=== PATIENT | female | born 1950 | race Caucasian/White ===

== ENCOUNTER 2023-08-27 10:02 | Outpatient (AMB) | payer MEDICARE, MEDICAID, SELFPAY ==
[2023-08-27 10:15] VITALS: PULSE 90; O2SAT 99; BMI 45.2
--- NOTE | 2023-08-27 10:15 | MHC.OFFVIS ---
Vital Signs 08/27/23 10:15 Height 5 ft Weight 231 lb 7.766 oz BMI 45.2 Pulse 90 Pulse Source Pulse Oximeter Pulse Oximetry (%) 99 Oxygen Delivery Method Room Air Intake Visit Reasons: asthma Em Physician Required: No Allergies procaine [From Novocain] Allergy (Severe, Verified 08/27/23 10:22) Chest Pain candesartan [From Atacand] Adverse Reaction (Severe, Verified 08/27/23 10:22) Rash chlorthalidone Adverse Reaction (Severe, Verified 08/27/23 10:22) Rash cimetidine Adverse Reaction (Severe, Verified 08/27/23 10:22) Rash cyclobenzaprine [From Flexeril] Adverse Reaction (Severe, Verified 08/27/23 10:22) Chest Pain fentanyl Adverse Reaction (Severe, Verified 08/27/23 10:22) Chest Pain ibuprofen [From Motrin] Adverse Reaction (Severe, Verified 08/27/23 10:22) Rash meperidine [From Demerol] Adverse Reaction (Severe, Verified 08/27/23 10:22) Rash montelukast [From Singulair] Adverse Reaction (Severe, Verified 08/27/23 10:22) Rash nitrofurantoin [From Macrobid] Adverse Reaction (Severe, Verified 08/27/23 10:22) Rash oxycodone Adverse Reaction (Severe, Verified 08/27/23 10:22) Chest Pain Penicillins Adverse Reaction (Severe, Verified 08/27/23 10:22) Rash sulfa drugs Adverse Reaction (Severe, Uncoded 08/27/23 10:22) Rash HPI Comments Details: The patient is here for pulmonary evaluation. 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 The cough is moderate severity not improving. She went through few courses of medications with slow improvement of the cough and now back to her baseline. During the process the patient did have a chest x-ray and subsequently a CT scan of the chest which was done at [facility]. I did personally review the CT scan done early 07/09/2023. The patient did have some areas of airspace disease in the left base which is very suspicious for infectious process. She did have a little bit of bronchiolitis treating budding that area as well that is very typical of a postviral bacterial infection. Patient also had evidence of peribronchial cuffing from bronchitis. And also had multiple pulmonary nodules. The largest nodule measured between 5-6 mm in size and was subsolid nature. She had other solid nodules and other ground-glass nodules. In view of all the changes on her CT scan she should have a CT scan repeated in 6 months from her last 1. Will plan to do it at [facility] as the patient's preference. Will follow up at that time. In the meantime since she her breathing is back to her baseline she continued. She did have her IVIG infuse because of the hypogammaglobulinemia. 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 She did have an allergic reaction some type. She will call the immunology Office for premedications prior to the next dose. The patient will continue to follow closely with immunology. And will follow-up sometime in December after her repeat CT scan. If she has any issues prior to that she will call for an earlier assessment. [facility] Medical History (Updated 08/27/23 @ 21:03 by Naman Stevens MD) Pulmonary nodules Hiatal hernia Hypogammaglobulinemia Asthma Social History (Updated 08/27/23 @ 10:27 by MIRA Nicholas) Patient Tobacco Use Status: Never used Tobacco Review of Systems Const Denies fever(s) ENT Reports nasal congestion and Reports nasal discharge Card Denies chest pain Resp Reports cough and Reports wheezing GI Reports dyspepsia and Reports heartburn Musc Reports no additional complaints Skin/Breast Denies rash Aller/Immun Reports wheezing Physical Exam Vital Signs: Last Vital Signs Pulse 90 08/27/23 10:15 Pulse Ox 99 08/27/23 10:15 Oxygen Delivery Method Room Air 08/27/23 10:15 BMI result Body Mass Index 45.2 Const General: comfortable HEENT Head: Yes normocephalic Neck Neck: Yes supple Chest Chest palpation & inspection: normal inspection of the chest Resp Effort & Inspection: normal respiratory effort Auscultation: clear to auscultation bilaterally Cardio Heart sounds: S1 normal heart sound present and S2 normal heart sound present GI Palpation (GI): Soft to palpation Skin General skin exam: no rashes or lesions noted Extrem General: Yes no clubbing, cyanosis or edema Assessment & Plan Assessment & Plan (1) Asthma: Code(s): J45.909 - Unspecified asthma, uncomplicated Category: Medical Qualifiers: Asthma severity: moderate Asthma persistence: persistent Asthma complication type: uncomplicated Qualified Code(s): J45.40 - Moderate persistent asthma, uncomplicated (2) Hypogammaglobulinemia: Code(s): D80.1 - Nonfamilial hypogammaglobulinemia Category: Medical (3) Hiatal hernia: Code(s): K44.9 - Diaphragmatic hernia without obstruction or gangrene Category: Medical (4) Pulmonary nodules: Code(s): R91.8 - Other nonspecific abnormal finding of lung field Category: Medical Plan CT chest at [facility] 12/2023 continue Airduo JESSY as needed IVIG reflux diet f/u 12/[address]: [address] chest wo IV con 12/24/23 R91.1 - Solitary pulmonary nodule Coding Level of Care Code New Pt Level 4 (77548) Diagnoses Moderate persistent asthma without complication J45.40 Asthma severity: moderate Asthma persistence: persistent Asthma complication type: uncomplicated Hypogammaglobulinemia D80.1 Hiatal hernia K44.9 Pulmonary nodules R91.8 Time Spent (min) 40
== END 2023-08-27 10:52 | disposition home or self-care (01) ==
PROVIDERS: PCP Internal Medicine; Visit Provider Hospitalist
DX: J45.40 Moderate persistent asthma, uncomplicated (principal); D80.1 Nonfamilial hypogammaglobulinemia; K44.9 Diaphragmatic hernia without obstruction or gangrene; R91.8 Other nonspecific abnormal finding of lung field
CPT/HCPCS: 99204

== ENCOUNTER → 2023-08-27 10:02 | Outpatient (BNVA) | payer MEDICARE, SELFPAY | PROVIDERS: PCP Internal Medicine; Visit Provider Hospitalist | DX: J45.40 Moderate persistent asthma, uncomplicated (principal); D80.1 Nonfamilial hypogammaglobulinemia; K44.9 Diaphragmatic hernia without obstruction or gangrene; R91.8 Other nonspecific abnormal finding of lung field | CPT/HCPCS: 99202 ==

== ENCOUNTER 2024-01-14 10:01 | Outpatient (AMB) | payer MEDICARE, SELFPAY ==
[2024-01-14 10:16] VITALS: BP 124/64; PULSE 85; O2SAT 97
--- NOTE | 2024-01-14 10:16 | MHC.OFFVIS ---
Vital Signs 01/14/24 10:16 Weight 222 lb 10.67 oz BP 124/64 Blood Pressure Location Rt brachial Position Sitting Pulse 85 Pulse Source Pulse Oximeter Pulse Oximetry (%) 97 Oxygen Delivery Method Room Air Intake Visit Reasons: Asthma Allergies procaine [From Novocain] Allergy (Severe, Verified 01/14/24 10:21) Chest Pain candesartan [From Atacand] Adverse Reaction (Severe, Verified 01/14/24 10:21) Rash chlorthalidone Adverse Reaction (Severe, Verified 01/14/24 10:21) Rash cimetidine Adverse Reaction (Severe, Verified 01/14/24 10:21) Rash cyclobenzaprine [From Flexeril] Adverse Reaction (Severe, Verified 01/14/24 10:21) Chest Pain fentanyl Adverse Reaction (Severe, Verified 01/14/24 10:21) Chest Pain ibuprofen [From Motrin] Adverse Reaction (Severe, Verified 01/14/24 10:21) Rash meperidine [From Demerol] Adverse Reaction (Severe, Verified 01/14/24 10:21) Rash montelukast [From Singulair] Adverse Reaction (Severe, Verified 01/14/24 10:21) Rash nitrofurantoin [From Macrobid] Adverse Reaction (Severe, Verified 01/14/24 10:21) Rash oxycodone Adverse Reaction (Severe, Verified 01/14/24 10:21) Chest Pain Penicillins Adverse Reaction (Severe, Verified 01/14/24 10:21) Rash sulfa drugs Adverse Reaction (Severe, Uncoded 01/14/24 10:21) Rash Medication List - Last Reconciled 01/14/24 by Marli De Leon LPN albuterol sulfate 90 mcg/actuation 2 puffs inhalation Q6H PRN allopurinol 100 mg PO DAILY cyanocobalamin (vitamin B-12) 1,000 mcg PO DAILY denosumab (Prolia) 60 mg subcut [id number] esomeprazole magnesium (Nexium) 20 mg PO DAILY fluticasone propion-salmeterol 232-14 mcg/actuation (AirDuo RespiClick) 1 inh inhalation BID folic acid 1 mg PO DAILY furosemide 20 mg PO BID lisinopril 10 mg PO DAILY simvastatin 20 mg PO BEDTIME sodium bicarbonate 650 mg PO BID HPI Comments Details: The patient is a 73 year woman with known history of allergy and asthma in addition to hypogammaglobulinemia who apparently developed a viral syndrome about 3-4 months ago and started developing worsening cough. The cough is moderate severity not improving. She went through few courses of medications with slow improvement of the cough and now back to her baseline. During the process the patient did have a chest x-ray and subsequently a CT scan of the chest which was done at [facility]. I did personally review the CT scan done early 07/09/2023. The patient did have some areas of airspace disease in the left base which is very suspicious for infectious process. She did have a little bit of bronchiolitis treating budding that area as well that is very typical of a postviral bacterial infection. Patient also had evidence of peribronchial cuffing from bronchitis. And also had multiple pulmonary nodules. The largest nodule measured between 5-6 mm in size and was subsolid nature. She had other solid nodules and other ground-glass nodules. In view of all the changes on her CT scan she should have a CT scan repeated in 6 months from her last 1. Will plan to do it at [facility] as the patient's preference. Will follow up at that time. In the meantime since she her breathing is back to her baseline she continued. She did have her IVIG infuse because of the hypogammaglobulinemia. 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 She did have an allergic reaction some type. She will call the immunology Office for premedications prior to the next dose. The patient will continue to follow closely with immunology. And will follow-up sometime in December after her repeat CT scan. If she has any issues prior to that she will call for an earlier assessment. 01/14/2024 the patient is here for a pulmonary follow-up visit. Overall the patient is doing well. She did have a very eventful few months as she developed a severe allergic reaction after receiving IVIG. This was an infusion. She developed a rash over her body and she was very uncomfortable for those 3 months. Now has subsided completely. She is working closely with their computer aided design designer regarding the next step. I believe that they want to try different formulation so therefore she does not have any significant allergic reactions 1 that is provided subcutaneously. Therefore, she will be starting this new therapy soon. I did speak to her regarding premedications. She has discuss that further with her computer aided design designer to make sure that she has an adequate premedications to minimize another allergic reaction. The patient also had a CT scan of the chest which I personally reviewed. I also compared to her previous CT scan. Her pulmonary nodules have subsided completely. Likely that this was related to an infectious process specially since some of the nodules were in the tree in bud distribution there was evidence of bronchitis very specific to the left lower lobe and also less so the right lower lobe. With her immunocompromised state this is likely infectious process. At this point the patient does not need any additional imaging studies. If she does become symptomatic she can always call and we can talk about those symptoms and further evaluation at that point. Will follow-up in a year's time to make sure she is doing well and otherwise she will call for any acute issues. [facility] Medical History (Updated 08/27/23 @ 21:03 by Naman Stevens MD) Pulmonary nodules Hiatal hernia Hypogammaglobulinemia Asthma Social History (Updated 08/27/23 @ 10:27 by MIRA Nicholas) Patient Tobacco Use Status: Never used Tobacco Review of Systems Const Denies fever(s) ENT Reports nasal congestion and Reports nasal discharge Card Denies chest pain Resp Reports cough and Reports wheezing GI Reports dyspepsia and Reports heartburn Musc Reports no additional complaints Skin/Breast Denies rash Aller/Immun Reports wheezing Physical Exam Vital Signs: Last Vital Signs Pulse 85 01/14/24 10:16 BP 124/64 01/14/24 10:16 Pulse Ox 97 01/14/24 10:16 Oxygen Delivery Method Room Air 01/14/24 10:16 Const General: comfortable HEENT Head: Yes normocephalic Neck Neck: Yes supple Chest Chest palpation & inspection: normal inspection of the chest Resp Effort & Inspection: normal respiratory effort Auscultation: clear to auscultation bilaterally Cardio Heart sounds: S1 normal heart sound present and S2 normal heart sound present GI Palpation (GI): Soft to palpation Skin General skin exam: no rashes or lesions noted Extrem General: Yes no clubbing, cyanosis or edema Assessment & Plan Assessment & Plan (1) Asthma: Code(s): J45.909 - Unspecified asthma, uncomplicated Category: Medical Qualifiers: Asthma complication type: uncomplicated Asthma persistence: persistent Asthma severity: moderate Qualified Code(s): J45.40 - Moderate persistent asthma, uncomplicated (2) Hypogammaglobulinemia: Code(s): D80.1 - Nonfamilial hypogammaglobulinemia Category: Medical (3) Hiatal hernia: Code(s): K44.9 - Diaphragmatic hernia without obstruction or gangrene Category: Medical (4) Pulmonary nodules: Code(s): R91.8 - Other nonspecific abnormal finding of lung field Category: Medical Plan CT [facility] [place] [facility] [place] reviewed, resolved air space disease and nodules, likely infectious continue Airduo JESSY as needed IVIG stopped due to allergic reaction ?SC IgG therapy. May benefit from premedication reflux diet f/u 1 yr Coding Level of Care Code Est Pt Level 4 (24582) Diagnoses Moderate persistent asthma without complication J45.40 Asthma complication type: uncomplicated Asthma persistence: persistent Asthma severity: moderate Hypogammaglobulinemia D80.1 Hiatal hernia K44.9 Pulmonary nodules R91.8 Time Spent (min) 17
== END 2024-01-14 10:43 | disposition home or self-care (01) ==
PROVIDERS: PCP Internal Medicine; Visit Provider Hospitalist
DX: J45.40 Moderate persistent asthma, uncomplicated (principal); D80.1 Nonfamilial hypogammaglobulinemia; K44.9 Diaphragmatic hernia without obstruction or gangrene; R91.8 Other nonspecific abnormal finding of lung field
CPT/HCPCS: 99214

== ENCOUNTER → 2024-01-14 10:01 | Outpatient (BNVA) | payer MEDICARE, SELFPAY | PROVIDERS: PCP Internal Medicine; Visit Provider Hospitalist | DX: J45.40 Moderate persistent asthma, uncomplicated (principal); R91.1 Solitary pulmonary nodule; D80.1 Nonfamilial hypogammaglobulinemia; K44.9 Diaphragmatic hernia without obstruction or gangrene | CPT/HCPCS: 99212 ==

== ENCOUNTER 2024-04-28 14:38 | Outpatient (AMB) | payer MEDICARE, MEDICAID, SELFPAY ==
[2024-04-28 14:40] VITALS: BP 130/76; PULSE 91; O2SAT 98; BMI 42.0
--- NOTE | 2024-04-28 14:40 | MHC.OFFVIS ---
Vital Signs 04/28/24 14:40 Height 5 ft Weight 214 lb 15.211 oz BMI 42.0 BP 130/76 Blood Pressure Location Rt brachial Position Sitting Pulse 91 Pulse Source Pulse Oximeter Pulse Oximetry (%) 98 Oxygen Delivery Method Room Air Intake Visit Reasons: Asthma Allergies procaine [From Novocain] Allergy (Severe, Verified 04/28/24 14:43) Chest Pain candesartan [From Atacand] Adverse Reaction (Severe, Verified 04/28/24 14:43) Rash chlorthalidone Adverse Reaction (Severe, Verified 04/28/24 14:43) Rash cimetidine Adverse Reaction (Severe, Verified 04/28/24 14:43) Rash cyclobenzaprine [From Flexeril] Adverse Reaction (Severe, Verified 04/28/24 14:43) Chest Pain fentanyl Adverse Reaction (Severe, Verified 04/28/24 14:43) Chest Pain ibuprofen [From Motrin] Adverse Reaction (Severe, Verified 04/28/24 14:43) Rash meperidine [From Demerol] Adverse Reaction (Severe, Verified 04/28/24 14:43) Rash montelukast [From Singulair] Adverse Reaction (Severe, Verified 04/28/24 14:43) Rash nitrofurantoin [From Macrobid] Adverse Reaction (Severe, Verified 04/28/24 14:43) Rash oxycodone Adverse Reaction (Severe, Verified 04/28/24 14:43) Chest Pain Penicillins Adverse Reaction (Severe, Verified 04/28/24 14:43) Rash sulfa drugs Adverse Reaction (Severe, Uncoded 04/28/24 14:43) Rash HPI Comments Details: The patient is a 73 year woman with known history of allergy and asthma in addition to hypogammaglobulinemia who apparently developed a viral syndrome about 3-4 months ago and started developing worsening cough. The cough is moderate severity not improving. She went through few courses of medications with slow improvement of the cough and now back to her baseline. During the process the patient did have a chest x-ray and subsequently a CT scan of the chest which was done at [facility]. I did personally review the CT scan done early 07/09/2023. The patient did have some areas of airspace disease in the left base which is very suspicious for infectious process. She did have a little bit of bronchiolitis treating budding that area as well that is very typical of a postviral bacterial infection. Patient also had evidence of peribronchial cuffing from bronchitis. And also had multiple pulmonary nodules. The largest nodule measured between 5-6 mm in size and was subsolid nature. She had other solid nodules and other ground-glass nodules. In view of all the changes on her CT scan she should have a CT scan repeated in 6 months from her last 1. Will plan to do it at [facility] as the patient's preference. Will follow up at that time. In the meantime since she her breathing is back to her baseline she continued. She did have her IVIG infuse because of the hypogammaglobulinemia. 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 She did have an allergic reaction some type. She will call the immunology Office for premedications prior to the next dose. The patient will continue to follow closely with immunology. And will follow-up sometime in December after her repeat CT scan. If she has any issues prior to that she will call for an earlier assessment. 01/14/2024 the patient is here for a pulmonary follow-up visit. Overall the patient is doing well. She did have a very eventful few months as she developed a severe allergic reaction after receiving IVIG. This was an infusion. She developed a rash over her body and she was very uncomfortable for those 3 months. Now has subsided completely. She is working closely with their wooling machine operator regarding the next step. I believe that they want to try different formulation so therefore she does not have any significant allergic reactions 1 that is provided subcutaneously. Therefore, she will be starting this new therapy soon. I did speak to her regarding premedications. She has discuss that further with her wooling machine operator to make sure that she has an adequate premedications to minimize another allergic reaction. The patient also had a CT scan of the chest which I personally reviewed. I also compared to her previous CT scan. Her pulmonary nodules have subsided completely. Likely that this was related to an infectious process specially since some of the nodules were in the tree in bud distribution there was evidence of bronchitis very specific to the left lower lobe and also less so the right lower lobe. With her immunocompromised state this is likely infectious process. At this point the patient does not need any additional imaging studies. If she does become symptomatic she can always call and we can talk about those symptoms and further evaluation at that point. Will follow-up in a year's time to make sure she is doing well and otherwise she will call for any acute issues. 04/28/2024 the patient is here for pulmonary follow-up visit. Overall doing well. Although recently she did have a bout of a respiratory illness. She went to an urgent care initially she was given some prednisone and some cough medication for a viral syndrome. Then 2 weeks later she showed up again with productive cough moderate severity shortness of breath and she was diagnosed with bronchopneumonia. She had an x-ray apparently was abnormal. She was given 2 antibiotics. Now she is feeling back to her baseline. In the meantime she has been getting the subcutaneous IgG infusions with immunology. She is tolerating them well and has been affecting beneficial. The patient will go ahead and have a repeat x-ray to make sure that everything is clear from the pneumonia standpoint. Her lung exam is reassuring. She does continue with her inhaler therapy as prescribed with good results. Will plan to follow-up in a year's time. If her x-ray is abnormal let her know. [facility] Medical History (Updated 04/28/24 @ 22:04 by Naman Stevens MD) Arrhythmia PIETER (obstructive sleep apnea) Pulmonary nodules Hiatal hernia Hypogammaglobulinemia Asthma Social History Patient Tobacco Use Status: Never used Tobacco Review of Systems Const Denies fever(s) ENT Reports nasal congestion and Reports nasal discharge Card Denies chest pain Resp Reports cough and Reports wheezing GI Reports dyspepsia and Reports heartburn Musc Reports no additional complaints Skin/Breast Denies rash Endo Reports no additional complaints Zane/Lymph Reports no additional complaints Aller/Immun Reports wheezing Physical Exam Vital Signs: Last Vital Signs Pulse 91 04/28/24 14:40 BP 130/76 04/28/24 14:40 Pulse Ox 98 04/28/24 14:40 Oxygen Delivery Method Room Air 04/28/24 14:40 BMI result Body Mass Index 42.0 Const General: comfortable HEENT Head: Yes normocephalic Neck Neck: Yes supple Chest Chest palpation & inspection: normal inspection of the chest Resp Effort & Inspection: normal respiratory effort Auscultation: clear to auscultation bilaterally Cardio Rhythm: abnormal rhythm Heart sounds: S1 normal heart sound present and S2 normal heart sound present GI Palpation (GI): Soft to palpation Skin General skin exam: no rashes or lesions noted Extrem General: Yes no clubbing, cyanosis or edema Assessment & Plan Assessment & Plan (1) Asthma: Code(s): J45.909 - Unspecified asthma, uncomplicated Category: Medical Qualifiers: Asthma complication type: uncomplicated Asthma persistence: persistent Asthma severity: moderate Qualified Code(s): J45.40 - Moderate persistent asthma, uncomplicated (2) Hypogammaglobulinemia: Code(s): D80.1 - Nonfamilial hypogammaglobulinemia Category: Medical (3) Hiatal hernia: Code(s): K44.9 - Diaphragmatic hernia without obstruction or gangrene Category: Medical (4) Pulmonary nodules: Code(s): R91.8 - Other nonspecific abnormal finding of lung field Category: Medical (5) PIETER (obstructive sleep apnea): Code(s): G47.33 - Obstructive sleep apnea (adult) (pediatric) Category: Medical (6) Bronchopneumonia: Code(s): J18.0 - Bronchopneumonia, unspecified organism Category: Medical (7) Arrhythmia: Code(s): I49.9 - Cardiac arrhythmia, unspecified Category: Medical Qualifiers: Arrhythmia type: unspecified cardiac arrhythmia Qualified Code(s): I49.9 - Cardiac arrhythmia, unspecified Plan CXR continue Advair generic 500/50 EKG recently by Cardiology, need to f/u with re: abnormal heart rhythm JESSY as needed SC IgG therapy, premedicate with tylenol/zyrtec consider inlab sleep study in view of the cardiac arrhythmia reflux diet f/u 1 yr Orders: Orders XR chest 2V Today J18.0 - Bronchopneumonia, unspecified organism Coding Level of Care Code Est Pt Level 4 (01399) Diagnoses Moderate persistent asthma without complication J45.40 Asthma complication type: uncomplicated Asthma persistence: persistent Asthma severity: moderate Hypogammaglobulinemia D80.1 Hiatal hernia K44.9 Pulmonary nodules R91.8 PIETER (obstructive sleep apnea) G47.33 Bronchopneumonia J18.0 Cardiac arrhythmia, unspecified cardiac arrhythmia type I49.9 Arrhythmia type: unspecified cardiac arrhythmia Time Spent (min) 16
--- OUTSIDE RECORDS SUMMARY | 2024-04-28 16:45 | XMS_ITS | Clinical Summary ---
Author Organization [facility] Address [address] [place] [address] Care Team Providers Care Cottage Parent Name Role Phone Darlyn Barnes MD Primary Care Provider [phone] Allergies Active Allergy Reactions Criticality Noted Date Comments Amoxicillin Unknown/Patient and Family Unable to Define Medium 07/24/2016 Candesartan Unknown/Patient and Family Unable to Define Medium 07/24/2016 Diphenhydramine Unknown/Patient and Family Unable to Define Medium 07/24/2016 Chlorthalidone Unknown/Patient and Family Unable to Define Medium 07/24/2016 Fluocinolone Unknown/Patient and Family Unable to Define Medium 07/24/2016 Meperidine Unknown/Patient and Family Unable to Define Medium 07/24/2016 Erythromycin Unknown/Patient and Family Unable to Define Medium 07/24/2016 Fentanyl Unknown/Patient and Family Unable to Define Medium 07/24/2016 Cyclobenzaprine Unknown/Patient and Family Unable to Define Medium 07/24/2016 Ibuprofen Unknown/Patient and Family Unable to Define Medium 07/24/2016 Nitrofurantoin Unknown/Patient and Family Unable to Define Medium 07/24/2016 Procaine Unknown/Patient and Family Unable to Define Medium 07/24/2016 Medications Medication Sig Dispensed Refills Start Date End Date Status traMADol (ULTRAM) 50 MG tablet Take 50 mg by mouth Every 6 (six) to 8 (eight) hours as needed. For Pain 0 04/28/2016 Active simvastatin (ZOCOR) 20 MG tablet 1 TABLET BY MOUTH DAILY AT BEDTIME,X90 DAYS 3 05/01/2016 Active PEG 7354-YFe-RzFxt-NaCl-Roberto Carlos ulf (PEG-3350/ELECTROLYTES) 236 g Recon Soln MIX AND DRINK 240 ML EVERY 15 MINUTES ORALLY 16 DOSE(S) 0 06/11/2016 Active ondansetron (ZOFRAN-ODT) 8 MG disintegrating tablet DISSOLVE 1 TABLET BY MOUTH EVERY 8 HOURS NEEDED 0 04/28/2016 Active lisinopril (PRINIVIL,ZeSTRIL) 5 MG tablet 1 TABLET BY MOUTH DAILY,X90 DAYS 3 05/01/2016 Active levoFLOXacin (LEVAQUIN) 250 MG tablet TAKE 1 TABLET BY MOUTH DAILY FOR TONIGHT AND 1 TABLET IF UTI WHILE TRAVELING. 0 05/29/2016 Active furosemide (LASIX) 20 MG tablet 1 TABLET BY MOUTH DAILY,X90 DAYS 3 05/01/2016 Active cephalexin (KEFLEX) 500 MG capsule Take 500 mg by mouth 2 (two) times a day. 0 04/21/2016 Active butalbital-acetaminophe n-caffeine (FioriCET, ESGIC) 50-325-40 mg tablet Take 1 tablet by mouth 4 times daily (every 6 hours) as needed. 0 04/29/2016 Active Active Problems Problem Noted Date Diagnosed Date CKD (chronic kidney disease), stage III 09/29/19 17 Hydronephrosis 08/15/2016 UPJ (ureteropelvic junction) obstruction 017 Family History Medical History Relation Name Comments Cancer Mother Kidney Stones Mother nephrectomy Relation Name Status Comments Mother Social History Tobacco Use Types Packs/Day Years Used Date Smoking Tobacco: Never Alcohol Use Standard Drinks/Week Comments No 0 (1 standard drink = 0.6 oz pur e alcohol) Sex and Gender Information Value Date Recorded Sex Assigned at Not on file Gender Identity Not on file Sexual Orientation Not on file Last Filed Vital Signs Vital Sign Reading Time Taken Comments Blood Pressure - - Pulse - - Temperature - - Respiratory Rate 16 08/15/2016 3:06 PM EDT Oxygen Saturation - - Inhaled Oxygen Concentration - - Weight 101 kg (222 lb) 08/15/2016 3:06 PM EDT Height 152.4 cm (5') 08/15/2016 3:06 PM EDT Body Mass Index 43.36 08/15/2016 3:06 PM EDT Plan of Treatment Health Maintenance Due Date Last Done Comments Hepatitis C Virus Screening 1950 DTaP/Tdap/Td Vaccines (1 - Tdap) 1969 Mammogram 1990 Colonoscopy 07/13/1995 Pneumococcal Vaccines 50+ (1 of 1 - PCV) 2000 Zoster (Shingles) Vaccine (1 of 2) 2000 DXA Bone Density (Females,Ag es 65 and older) 07/13/2015 Influenza Vaccine 09/20/2023 COVID-19 Vaccine ( - 2023-2 5 season) 2023 RSV Vaccine 60 years and old er and Patients (1 - 1-dose 75+ series) 2025 Hepatitis B Vaccines Aged Out No long er eligible based on patient's age to complete this topic Care Teams Cottage Parent Relationship Specialty Start Date End Date Darlyn Barnes MD [address] [place] [address] PCP - General 06/26/16
--- OUTSIDE RECORDS SUMMARY | 2024-04-28 16:45 | XMS_ITS | Encounter Summary ---
Author Organization [facility] Address [address] [place] [address] Care Team Providers Care Surveying Technician Name Role Phone Darlyn Barnes MD Primary Care Provider [phone] Reason for Visit * Reason Onset Date Comments Disc Sent To PACS 10/02/2016 Encounter Details Date Type Department Care Team (Late st Contact Info) Description 10/02/[address] [facility] Urologic Surgery [place] [address] [address] Jonathan Howell MD [address] [address] Disc Sent To PACS Social History Tobacco Use Types Packs/Day Years Used Date Smoking Tobacco: Never Alcohol Use Standard Drinks/Week Comments No 0 (1 standard drink = 0.6 oz pur e alcohol) Sex and Gender Information Value Date Recorded Sex Assigned at Not on file Gender Identity Not on file Sexual Orientation Not on file documented as of this encounter Miscellaneous Notes * Telephone Encounter - Emmy Carlos - 10/02/2016 12:06 PM EDT Rcv'd disc from [facility] multiple studies sent to PACS documented in this encounter Plan of Treatment Not on file documented as of this encounter Visit Diagnoses Not on filedocumented in this encounter Care Teams Surveying Technician Relationship Specialty Start Date End Date Darlyn Barnes MD [address] [place] [address] PCP - General 06/26/16 documented as of this encounter
--- OUTSIDE RECORDS SUMMARY | 2024-04-28 16:45 | XMS_ITS | Encounter Summary ---
Author Organization [facility] Address [address] [place] [address] Phone Care Team Providers Care Covering Machine Operator Helper Name Role Phone Tashia Barnes MD Primary Care Provider Reason for Visit * Reason Onset Date Comments Med Refill 07/08/2022 Encounter Details Date Type Department Care Team (Late st Contact Info) Description 07/08/2022 Refill [facility] [address] [place] [address] Fabien Lockwood MD [address] [place] [address] [place] [address] Social History Tobacco Use Types Packs/Day Years Used Date Smoking Tobacco: Never Alcohol Use Standard Drinks/Week Comments No 0 (1 standard drink = 0.6 oz pur e alcohol) Comments Unknown Sex and Gender Information Value Date Recorded Sex Assigned at Not on file Legal Sex Female 4:34 PM EST Gender Identity Not on file Sexual Orientation Not on file documented as of this encounter Plan of Treatment Upcoming Encounters Date Type Department Care Team (Late st Contact Info) Description 04/30/2024 4:30 PM EDT Office Visit [facility] [address] [place] [address] Fabien Lockwood MD [address] [facility] [place] [address] documented as of this encounter Visit Diagnoses Not on filedocumented in this encounter Care Teams Covering Machine Operator Helper Relationship Specialty Start Date End Date Tashia Barnes MD [address] [place] [address] [address] [place] [address] PCP - General 12/24/18 documented as of this encounter
--- OUTSIDE RECORDS SUMMARY | 2024-04-28 16:45 | XMS_ITS | Encounter Summary ---
Author Organization [facility] Address [address] [place] [address] Phone Care Team Providers Care Drain Tile Machine Operator Name Role Phone Tashia Barnes MD Primary Care Provider [phone] Encounter Details Date Type Department Care Team (Late st Contact Info) Description 06/11/2021 Documentation Only [facility] [address] [place] [id number] Trinh Connelly PA Social History Tobacco Use Types Packs/Day Years [...] Office Visit [facility] [address] [place] [id number] Fabien Lockwood MD [address] [place] [address] [place] [id number] documented as of this encounter Visit Diagnoses Not on filedocumented in this encounter Care Teams Drain Tile Machine Operator Relationship Specialty Start Date End Date Tashia Barnes MD [address] [place], [place] [address] [address] PCP - General 12/24/18 documented as of this encounter
--- OUTSIDE RECORDS SUMMARY | 2024-04-28 16:45 | XMS_ITS | Encounter Summary ---
Author Organization [facility] Address [address] [place] [address] Phone Care Team Providers Care Golf Technician Name Role Phone Tashia Barnes MD Primary Care Provider Encounter Details Date Type Department Care Team (Late st Contact Info) Description 05/17/2022 Documentation Only [facility] [address] [place] [address] Fabien Lockwood MD [address] [place] [address] [place] [address] Social History Tobacco Use Types [...] Office Visit [facility] [address] [place] [address] Fabien Lockwood MD [address] [facility] [place] [address] documented as of this encounter Visit Diagnoses Not on filedocumented in this encounter Care Teams Golf Technician Relationship Specialty Start Date End Date Tashia Barnes MD [address] [place] [address], [facility] [address] [place] [address] PCP - General 12/24/18 documented as of this encounter
--- OUTSIDE RECORDS SUMMARY | 2024-04-28 16:45 | XMS_ITS | Continuity of Care Document ---
Author Organization [facility] Address [address] [place] [address] Phone Care Team Providers Care Photo Optics Technician Name Role Phone Carmela OD, Amor Unavailable [...] Diagnoses Date Provider Providers Copied on Encounter [facility] [address], [place], [id number], [place] tel:[phone] [facility] No Information [address] [place] Amor. [address] [place], [address], [place]. tel:[phone] OFFICE/OUTPA TIENT VISIT, EST [facility] [address], [place], [id number], [place] tel:[phone] [facility] droopy [facility]ids (chief complaint) Dermatochala sis of right upper eyelidDermat ochalasis of left upper eyelid 2 Raghavendra Hunter. [address] [place], [address], [place]. tel:[phone] Referring Provider: Dale Mabry , [address] [place], [address]. tel:[phone] OFFICE/OUTPA TIENT VISIT, EST [facility] [address], [place], [id number], [place] tel:[phone] [facility] comprehensiv e exam (chief complaint) PresbyopiaAg e-related nuclear cataract, bilateralGla ucoma Suspect bilateralVit reous degeneration , bilateralDer matochalasis of left upper eyelidDermat ochalasis of right upper eyelid Oct-2 2-202 1 [place] Amor. [address] [place] [address], [address], [place]. tel:[phone] Referring Provider: Amor Drummond, [address] [place] [address], [address]. tel:[phone] [facility] [address], [place], [id number], [place] tel:[phone] [facility] comprehensiv e exam (chief complaint) Glaucoma Suspect bilateralAge -related nuclear cataract, bilateralPre sbyopia Oct-0 9-202 0 Carmela Amor. [address] [place] [address], [address], [place]. tel:[phone] Referring Provider: Amor Drummond, [address] [place] [address], [address]. tel:[phone] [facility] [address], [place], [id number], [place] tel:[phone] [facility] DFE/OCT (chief complaint) Glaucoma Suspect bilateralAge -related nuclear cataract, bilateralBil ateral vitreous detachment of eyesPresbyop iaDermatocha lasis of right upper eyelidDermat ochalasis of left upper eyelid Oct-0 9-201 9 [place] [facility]or. [address] [place] [address], [address], [place]. tel:[phone] Referring Provider: Amor Drummond, [address] [place] [address], [address]. tel:[phone] OFFICE/OUTPA TIENT VISIT, EST [facility] [address], [place], [id number], [place] tel:[phone] [facility] VF/HRT/IOP ck (chief complaint) Glaucoma Suspect bilateral Feb-0 6-201 9 Carmela Amor. [address] [place] [address], [address], [place]. tel:[phone] Referring Provider: Amor Drummond, [address] [place] [address], [address]. tel:[phone] OFFICE/OUTPA TIENT VISIT, [facility] [address], [place], [id number], [place] tel:[phone] [facility] Comprehensiv e exam (chief complaint) Glaucoma Suspect bilateralAge -related nuclear cataract, bilateralBil ateral vitreous detachment of eyesPresbyop ia Oct-2 2 8 [place] Amor. [address] [place] [address], [address], [place]. tel:[phone] Referring Provider: Amor Drummond, [address] [place] [address], [address]. tel:[phone] Family History Family Member Type Diagnosis Age At Onset No Information Immunizations Vaccine Date Status Comments Pneumo (2 yrs or older)(PPV) administered Source: Other Provider Flu (split) (3 yrs or older) administered Source: Other Provider Payers Payer name Insurance type Covered libertarian ID Authorismael lambert(s) Medicare MB [id number] Social History Type Description Quantity Date Captured Comments Sex Female Smoking Status No Information Chief Complaint And Reason For Visit No Information Reason For Referral Reason For Referral No Information Plan Of Treatment Date Type Action Status Goal Tobacco cessation counseling completed Future Order: Radiology Order Ze iss [employer] HD-OCT SPT ([id number]), Sent on: Sent Future Order: Radiology Order Ze iss Visual Field Analyzer SPT ([id number]), Sent on: Sent Future Order: Radiology Order Ze iss [employer] HD-OCT SPT ([id number]), Ordered on: Ordered Future Order: Radiology Order Ze iss Visual Field Analyzer SPT ([id number]), Ordered on: Ordered Future Order: Radiology Order Ze iss [employer] HD-OCT SPT ([id number]), Sent on: Sent Future Order: Radiology Order Ze iss Visual Field Analyzer SPT ([id number]), Sent on: Sent History Of Present Illness [...] Instruction Additional Infor josef Impression/Plan Related to [place] tochalasis of right upper eyelid Impression/Plan Related to [place] tochalasis of left upper eyelid Impression/Plan Related to Presb yopia Impression/Plan Related to Age-r elated nuclear cataract, bilateral Impression/Plan Related to Glauc sharon Suspect bilateral Impression/Plan Related to Vitre ous degeneration, bilateral Impression/Plan Related to [place] tochalasis of left upper eyelid Impression/Plan Related to [place] tochalasis of left upper eyelid Impression/Plan Related [...] Related to Presb yopia Impression/Plan Related to [place] tochalasis of right upper eyelid Impression/Plan Related to [place] tochalasis of left upper eyelid Impression/Plan Related [...]
--- OUTSIDE RECORDS SUMMARY | 2024-04-28 16:45 | XMS_ITS | Data Portability ---
Author Organization [facility], [facility] Address [address] [place] [address] Care Team Providers Care Surgeon Chief Name Role Phone AYAAN GIRALDO Primary Care Provider Assessment No assessment recorded. Plan of Treatment Reminders Order Date Submit Date Provider Last Modified By Organization Details Last Modified Time Details Appointments RECHECK 15 2024 08:45A M Alvarado Michaels PA-C Not available Not available Not available Lab None recorded . Referral None recorded . Procedures None recorded . Surgeries None recorded . Imaging None recorded . Medication Orders None recorded . Patient TargetsNo targets recorded. Patient InstructionsNo instructions recorded. Reason for Referral None Reported. Procedures Surgical History Date Name Laterality Status Provider Name and Address Organization Details Recorded Time 5 Hymovis Knee Injection completed Alvarado Michaels PA-C [address] [facility], [place], [address], [facility] 03/23/2024 19:58:08 5 Sports Knee 4&1 cancelled Alvarado Michaels PA-C [address], [place], [address], [facility] 03/18/2024 09:13:41 5 Sports Knee 4&1 completed Alvarado Michaels PA-C [address], [place], [address], [facility] 03/19/2024 08:28:15 5 Hymovis Knee Injection completed Alvarado Michaels PA-C [address], [place], [address], [facility] 03/16/2024 15:05:38 4 Sports Knee 4&1 completed Alvarado Michaels PA-C [address] [facility], [place], [address], [facility] 12/20/2023 21:41:29 4 Knee Kenalog 40mg 2cc Injection, L/R completed Alvarado Michaels PA-C [address] [facility], [place], [address], [facility] 09/19/2023 09:53:47 4 Hymovis Knee Injection completed Alvarado Michaels PA-C [address] [facility], [place], [address], [facility] 08/21/2023 13:25:09 4 Hymovis Knee Injection completed Alvarado Michaels PA-C [address] [facility], [place], [address], [facility] 08/16/2023 13:03:14 4 Knee Kenalog 40mg 2cc Injection, L/R completed Alvarado Michaels PA-C [address] [facility], [place], [address], [facility] 06/06/2023 09:02:48 Imaging Results None recorded. Procedure Notes None recorded. Medical Equipment None Reported. Allergies Allergen ID Allergen Name Allergen Category Reaction Reaction Severity Criticality Documentation Date Start Date Code Code System Note Provider Name and Address Organization Details Recorded Time 39687 Substance with sulfonami de structure and antibacte rial mechanism of action (substanc e) medicatio n Not available Not available Not available 04/23/20232004 73552 8003 SNOMED Aller gyRea ction : 'Skin React ion, Asthm a/Helena rt of Breat h'; Not Available [facility] 11:53:32 17987 Product containin g penicilli n (product) medicatio n Not available Not available Not available 04/23/20232004 93098 8001 SNOMED Aller gyRea ction : 'Skin React ion, Asthm a/Helena rt of Breat h'; Not Available [facility] 4 11:53:32 86939 Demerol medicatio n Not available Not available Not available 04/23/20232004 67071 1 RxNorm Aller gyRea ction : 'Skin React ion, Asthm a/Helena rt of Breat h'; Not Available [facility] 4 11:53:32 77105 Cipro medicatio n Not available Not available Not available 04/23/20232004 16223 3 RxNorm Aller gyRea ction : 'Skin React ion, Asthm a/Helena rt of Breat h'; Not Available [facility] 4 11:53:33 Medications Name Sig Start Date Stop Date Status Note LastModified by Organization Details LastModified Time prednisone 10 mg tablet TAKE 6 TABLETS BY MOUTH ONCE DAILY FOR 2 DAYS, AND THEN TAKE 5 TABLETS ONCE DAILY FOR 3 DAYS, AND THEN TAKE 4 TABLETS ONCE DAILY FOR 3 DAYS, AND THEN TAKE 3 TABLETS ONCE DAILY FOR 3 DAYS, AND THEN TAKE 2 ONCE DAILY FOR 3 DAYS AND 1 ONCE DAILY FOR 3 DAYS active Not Available Not Available No t Available doxycycline hyclate 100 mg capsule TAKE 1 CAPSULE BY MOUTH TWICE DAILY FOR 10 DAYS active Not Available Not Available No t Available clindamycin HCl 300 mg capsule TAKE 2 CAPSULES BY MOUTH HALF HOUR PRIOR TO VISIT AND THEN TAKE 2 CAPSULES HALF HOUR AFTER VISIT DIRECTED active Not Available Not Available No t Available cetirizine 10 mg tablet TAKE 1 TABLET BY MOUTH ONCE DAILY AT BEDTIME active Not Available Not Available No t Available cefpodoxime 200 mg tablet active Not Available Not Available Not Available azithromyci n 250 mg tablet active Not Available Not Available Not Available benzonatate 200 mg capsule TAKE 1 CAPSULE BY MOUTH THREE TIMES DAILY NEEDED FOR COUGH FOR 7 DAYS active Not Available Not Available No t Available prednisone 20 mg tablet TAKE 2 TABLETS BY MOUTH ONCE DAILY FOR 5 DAYS active Not Available Not Available No t Available prednisone 5 mg tablet TAKE 2 TABLETS BY MOUTH ONCE DAILY FOR 7 DAYS, AND THEN TAKE 1 TABLET ONCE DAILY FOR 7 DAYS, AND THEN TAKE 1/2 (ONE-HALF ) TABLET ONCE DAILY FOR 7 DAYS. TAKE WITH FOOD. NO NSAIDS. active Not Available Not Available No t Available ciprofloxac in 250 mg tablet TAKE 1 TABLET BY MOUTH EVERY 12 HOURS FOR 5 DAYS active Not Available Not Available No t Available levofloxaci n 250 mg tablet TAKE 1 TABLET BY MOUTH ONCE DAILY active Not Available Not Available No t Available allopurinol 100 mg tablet TAKE 1 TABLET BY MOUTH ONCE DAILY active Not Available Not Available No t Available triamcinolo ne acetonide 0.1 % topical cream APPLY A THIN LAYER OF CREAM TOPICALLY TO AFFECTED AREAS OF RASH ON TRUNK, ARMS, AND LEGS TWICE DAILY FOR 2 WEEKS, THEN TAKE 1 WEEK OFF, FOLLOW WITH CELINE Wheeler. REPEAT NEEDED. NOT FOR USE ON FACE OR BODY FOLDS active Not Available Not Available No t Available carvedilol 3.125 mg tablet TAKE 1 TABLET BY MOUTH TWICE DAILY active Not Available Not Available No t Available famotidine 20 mg tablet TAKE 1 TABLET BY MOUTH TWICE DAILY active Not Available Not Available No t Available sodium bicarbonate 650 mg tablet TAKE 1 TABLET BY MOUTH IN THE MORNING AND 1 IN THE EVENING active Not Available Not Available No t Available simvastatin 20 mg tablet TAKE 1 TABLET BY MOUTH ONCE DAILY AT BEDTIME active Not Available Not Available No t Available pseudoephed rine-guaife nesin ER 80-700 mg tablet,exte nded release 1-2 tabs every 4-6 hours as needed for pain 2008 active Statu s: 'Curr ent'; Not Available Not Available Not Available lisinopril 10 mg tablet TAKE 1 TABLET BY MOUTH ONCE DAILY active Not Available Not Available No t Available prednisone 50 mg tablet active Not Available Not Available Not Available folic acid 1 mg tablet TAKE 1 TABLET BY MOUTH ONCE DAILY active Not Available Not Available No t Available mupirocin 2 % topical ointment APPLY OINTMENT TOPICALLY TO BIOPSY ON RIGHT LEG ONCE DAILY UNTIL HEALED active Not Available Not Available No t Available furosemide 20 mg tablet TAKE 1 TABLET BY MOUTH TWICE DAILY active Not Available Not Available No t Available ergocalcife rol (vitamin D2) 1,250 mcg (50,000 unit) capsule TAKE 1 CAPSULE BY MOUTH ONCE A WEEK active Not Available Not Available No t Available estradiol 0.01% (0.1 mg/gram) vaginal cream TOPICALLY APPLY 1 GRAM VAGINALLY ONCE DAILY FOR 2 WEEKS, THEN APPLY TWICE WEEKLY DIRECTED BY THE DOCTOR active Not Available Not Available No t Available fluticasone propionate 50 mcg/actuati on nasal spray,suspe nsion USE 1 SPRAY IN EACH NOSTRIL ONCE DAILY. SHAKE WELL BEFORE USING active Not Available Not Available No t Available Ventolin HFA 90 mcg/actuati on aerosol inhaler INHALE 2 PUFFS BY MOUTH 4 TIMES DAILY NEEDED FOR WHEEZING active Not Available Not Available No t Available esomeprazol e magnesium 20 mg capsule,del ayed release TAKE 1 CAPSULE BY MOUTH ONCE DAILY active Not Available Not Available No t Available chlorhexidi ne gluconate 0.12 % mouthwash RINSE MOUTH WITH 15 ML (1 CAPFUL) FOR 30 SECONDS IN THE AM AND PM AFTER TOOTHBRUS MAZIN. EXPECTORA TE AFTER RINSING. DO NOT SWALLOW. active Not Available Not Available No t Available gabapentin Gabapenti n Powder 06/21 completed Statu s: 'Disc ontin ued'; Not Available Not Available Not Available cholecalcif [place] (vitamin D3) 25 mcg (1,000 unit) tablet TAKE 1 TABLET BY MOUTH ONCE DAILY active Not Available Not Available No t Available fluticasone 232 mcg-salmete rol 14 mcg/actuati on breath activated powdr INHALE 1 PUFF BY MOUTH TWICE DAILY. RINSE MOUTH AND THROAT AFTER USE. active Not Available Not Available No t Available Vitals Date Recorded Body height Body mass index (BMI) Body weight Provider Name and Address Organization Details Last Updated DateTime 08/27/2023 152.4 cm 41 kg/m2 17821.4 g Sarah Beth Valdez [facility] 08/27/2023 08:47:03 Date Recorded Body height Body mass index (BMI) Body weight Provider Name and Address Organization Details Last Updated DateTime 09/19/2023 152.4 cm 41 kg/m2 02754.4 g Sarah Beth Valdez [facility] 09/19/2023 09:38:10 Date Recorded Body height Provider Name an d Address Organization Details Last Updated DateTime 12/21/2023 152.4 cm Lalo Soliman [address], [place], [address], [facility] 12/21/2023 09:50:52 Date Recorded Body height Body mass index (BMI) Body weight Provider Name and Address Organization Details Last Updated DateTime 03/19/2024 152.4 cm 41 kg/m2 05549.4 g Alvarado Michaels PA-C [address], [place], [address], [place] [facility] [place] [facility] 03/19/2024 08:18:46 Date Recorded Body height Body mass index (BMI) Body weight Provider Name and Address Organization Details Last Updated DateTime 03/26/2024 152.4 cm 41 kg/m2 44685.4 g Trinh Hudson [place] [facility] [place] [facility] 03/26/2024 08:20:17 Social History None recorded. Functional Status None recorded. Mental Status None recorded. Family History Nothing Reported. Medical History No medical history recorded. Gynecological HistoryNo gynecological history recorded. Obstetrics History GPAL:G 0 P 0 0 0 0 Past Encounters Encounter ID Performer Location Encounter Start Date Encounter Closed Date Diagnosis/Indication Diagnosis SNOMED-CT Code Diagnosis ICD10 Code Diagnosis Note [id number] PERNELL Soliman [address] [place] [address] 06/06/2023 09:14:39 06/06/2023 10:24:50 Osteoarthritis of left knee joint [id number] 80931 M17.12 [id number] PERNELL Soliman [address] [place] [address] 08/20/2023 08:45:10 08/20/2023 15:31:52 Osteoarthritis of left knee joint [id number] 90625 M17.12 [id number] PERNELL Soliman [address] [place] [address] 08/27/2023 08:41:49 08/27/2023 09:19:00 Osteoarthritis of left knee joint [id number] 56773 M17.12 [id number] PERNELL Soliman [address] [place] [address] 09/19/2023 09:28:29 09/19/2023 10:56:20 Osteoarthritis of left knee joint 6337791003 26077 M17.12 [id number] PERNELL Soliman [address] [place] [address] 12/21/2023 09:44:31 01/10/2024 15:14:30 Osteoarthritis of left knee joint [id number] 48515 M17.12 [id number] PERNELL Soliman [address] [place] [address] 03/19/2024 08:13:43 04/08/2024 12:00:28 Osteoarthritis of left knee joint 7918839600 48551 M17.12 [id number] PERNELL Soliman [address] [place] [address] 03/26/2024 08:12:30 04/16/2024 08:02:19 Osteoarthritis of left knee joint [id number] 44238 M17.12 Health Concerns Section Related Observation LastModified by Organization Detai ls LastModified Time None Recorded Concern Status LastModified by Organization Details LastModified Time None Recorded Advance Directives Directive None Recorded Payers Encounter Date Sequence Insurance Name Policy Number Policy Rodriguez Covered Member ID Rodriguez Member ID Guarantor Name 08/27/2023 1 [place] [facility] Suzanne Jessica Bunny [id number] Suzanne Lopez Bunny 09/19/2023 1 [place] [facility] Suzanne Jessica Bunny [id number] Szuanne Lopez Bunny 12/21/2023 1 [place] [facility] Suzanne Jessica Bunny [id number] Suzanne M Bunny 03/19/2024 2 [place] [facility] Suzanne Jessica Bunny [id number] Suzanne Jessica Bunny 03/19/2024 1 [place] [facility] Suzanne Jessica Bunny [id number] Suzanne Jessica Bunny Notes Date Note Type Note Provider Name and Address Organization Details Recorded Time 09/19/2023 text/html I am seeing the patient today under the supervision of {{Erica* Brothers Laisha Rowe}} who was available but who did not see the patient. HPI: Patient returns for follow-up of Left knee pain. Patient has known arthritis of the Left knee. The patient has been doing well with conservative treatment. Past family, medical, social history and review of systems has been reviewed, updated and is located in the patient? s chart. Examination: The patient is well appearing and in no apparent distress. Alert and oriented x3. Gait is symmetric. Mild swelling of the Left knee. Range of motion of the right knee is flexion to {{100 105 110 115* 120}}. Full internal and external rotation of the hips without pain. Peripheral, vascular, lymphatic examination, skin, neurological, coordination, reflexes, sensation are within normal limits. Impression: Left Knee arthritis.. Plan: Reviewed diagnosis with the patient today in the office. Given this amount of arthritis in the knee recommended conservative management. Activity modification discussed. P.r.n. NSAIDs can be used. Discussed role of injection therapies both cortisone and viscosupplementati on. Today, injected the left knee with cortisone. Injected 40 mg of Kenalog. Reviewed home exercise program. Patient can return for injections every 3 months if necessary. Briefly discussed the role of total joint arthroplasty if and when conservative management fails and x-ray evaluation worsens. Follow-up p.r.n. Alvarado Michaels PA-C [address] [facility] [address], [place], [address], [facility] 09/19/2023 09:54:19 12/21/2023 text/html I am seeing the patient today under the supervision of {{Erica Troncoso* Laisha Rowe}} who was available but who did not see the patient. HPI: Patient returns for follow-up of Left knee pain. Patient has known arthritis of the Left knee. The patient has been doing well with conservative treatment. Past family, medical, social history and review of systems has been reviewed, updated and is located in the patient? s chart. Examination: The patient is well appearing and in no apparent distress. Alert and oriented x3. Gait is symmetric. Mild swelling of the Left knee. Range of motion of the right knee is flexion to {{100 105 110 115* 120}}. Full internal and external rotation of the hips without pain. Peripheral, vascular, lymphatic examination, skin, neurological, coordination, reflexes, sensation are within normal limits. Impression: Left Knee arthritis.. Plan: Reviewed diagnosis with the patient today in the office. Given this amount of arthritis in the knee recommended conservative management. Activity modification discussed. P.r.n. NSAIDs can be used. Discussed role of injection therapies both cortisone and viscosupplementati on. Today, injected the left knee with cortisone. Reviewed home exercise program. Patient can return for injections every 3 months if necessary. Briefly discussed the role of total joint arthroplasty if and when conservative management fails and x-ray evaluation worsens. Follow-up p.r.n. Alvarado Michaels PA-C [address] [facility] [address], [place], [address], [facility] [place] [facility] 12/21/2023 10:00:46 OBGyn Episode No OBEpisode recorded.
--- OUTSIDE RECORDS SUMMARY | 2024-04-28 16:45 | XMS_ITS | Encounter Summary ---
Author Organization [facility] Address [address] [place] [address] Phone Care Team Providers Care Draw End Hand Name Role Phone Tashia Barnes MD Primary Care Provider [phone] Encounter Details Date Type Department Care Team (Late st Contact Info) Description 03/14/2024 Documentation Only [facility] [address] [place] [address] [place] [address] [place] [address] Social History Tobacco Use Types Packs/Day Years [...] Visit [facility] [address] [place] [address] Fabien Lockwood MD [address] [place] [address] documented as of this encounter Visit Diagnoses Not on filedocumented in this encounter Care Teams Draw End Hand Relationship Specialty Start Date End Date Tashia Barnes MD [address] [facility], [address] [place] [id number] PCP - General 12/24/18 documented as of this encounter
--- OUTSIDE RECORDS SUMMARY | 2024-04-28 16:45 | XMS_ITS | Encounter Summary ---
Author Organization [facility] [place], Address [address] [place] [address] Phone Care Team Providers Care Air Battle Manager Name Role Phone Tashia Barnes MD Primary Care Provider [phone] Encounter Details Date Type Department Care Team (Late st Contact Info) Description 05/24/2020 Office Communication [facility], [address] [place] [address] Trinh Connelly PA Social History Tobacco Use [...] Visit [facility], [address] [place] [address] Fabien Lockwood MD [address] [place] [address] [place] [address] documented as of this encounter Visit Diagnoses Not on filedocumented in this encounter Care Teams Air Battle Manager Relationship Specialty Start Date End Date Tashia Barnes MD [address] [place] [address] PCP - General 12/24/18 documented as of this encounter
--- OUTSIDE RECORDS SUMMARY | 2024-04-28 16:45 | XMS_ITS | Encounter Summary ---
Author Organization [facility] Address [address] [place] [address] Phone Care Team Providers Care Billing Auditor Name Role Phone Tashia Barnes MD Primary Care Provider [phone] Encounter Details Date Type Department Care Team (Late st Contact Info) Description 06/27/2022 Documentation Only [facility] [address] [place] [address] Fabien Lockwood MD [address] [place] [address] [place] [address] Social History Tobacco Use Types [...] Office Visit [facility] [address] [place] [address] Fabien Lockwood MD [address] [facility] [address] [place] [address] documented as of this encounter Visit Diagnoses Not on filedocumented in this encounter Care Teams Billing Auditor Relationship Specialty Start Date End Date Tashia Barnes MD [address] [place] [address], [facility] [address] [place] [address] PCP - General 12/24/18 documented as of this encounter
--- OUTSIDE RECORDS SUMMARY | 2024-04-28 16:45 | XMS_ITS | Encounter Summary ---
Author Organization [facility] Address [address] [place] [address] Care Team Providers Care Clinic Administrator Name Role Phone Darlyn Barnes MD Primary Care Provider [phone] Reason for Visit * Reason Onset Date Comments Disc returned from PACS 10/06/2016 Encounter Details Date Type Department Care Team (Late st Contact Info) Description 10/06/2016 Telephone [facility] [place] [address] [address] Jonathan Howell MD [address] [address] Disc returned from PACS Social History Tobacco Use Types Packs/Day [...] * Telephone Encounter - Emmy Carlos - 10/06/2016 12:21 PM EDT Rcv'd disc from [facility] multiple studies returned from PACS mailed to pt documented in this encounter Plan of Treatment Not on file documented as of this encounter Visit Diagnoses Not on filedocumented in this encounter Care Teams Clinic Administrator Relationship Specialty Start Date End Date Darlyn Barnes MD [address] [place] [address] PCP - General 5/8/17 documented as of this encounter
--- OUTSIDE RECORDS SUMMARY | 2024-04-28 16:45 | XMS_ITS | Continuity of Care Document ---
Author Organization [facility] Address [address] [place] [address]- Care Team Providers Care Bulk Pigment Reducer Name Role Phone Darlyn Barnes MD Primary Care Physician Encounter [facility] Date(s): 03/27/24 - 04/26/24 [facility] [address] [place] [id number] Encounter Type: Triage Allergies, Adverse Reactions, Alerts Substance Criticality Severity Reaction Reaction Severity Status ibuprofen Active erythromycin gi upset Active cefpodoxime Active penicillin rash Active cimetidine rash Active chlorthalidone lip swelling Ac tive sulfa drugs rash Active Cipro gi upset Active Singulair depression Active [place] Active Macrobid Active Flexeril throat closes up Act laura Motrin Active Novocain anaphylaxis Active Demerol gi upset Active fentaNYL nausea, vomiting Act laura oxyCODONE Chest pain Active ZyrTEC Active Immunizations Given and Recorded Vaccine Date Status Refusal Reason pneumococcal 23-valent vaccine 04/19/23 Recorded pneumococcal 23-valent vaccine 02/08/17 Given tetanus/diphtheria/pertussis, acel(Tdap) 04/19/23 Recorded tetanus/diphtheria/pertussis, acel(Tdap) 1 01/27/13 Given SARS-CoV-2(COVID-19)mRNA-LNP vac([id number]) 12/20/22 Recorded influenza virus vaccine, inactivated 11/15/22 Azael rded influenza virus vaccine, inactivated 11/12/21 Azael rded influenza virus vaccine, inactivated 11/19/20 Azael rded influenza virus vaccine, inactivated 2 12/02/19 Re corded influenza virus vaccine, inactivated 03/01/18 Give n influenza virus vaccine, inactivated 02/08/17 Give n influenza virus vaccine, inactivated 02/02/16 Give n influenza virus vaccine, inactivated 02/09/15 Give n influenza virus vaccine, inactivated 3 01/27/13 Gi sigrid influenza virus vaccine, inactivated 12/06/09 Give n influenza virus vaccine, inactivated 4 11/20/07 Gi sigrid pneumococcal 20-valent conjugate vaccine 11/12/21 Recorded SARS-CoV-2 (COVID-19) mRNA-1273 vaccine 5 02/16/21 Recorded SARS-CoV-2 (COVID-19) mRNA-1273 vaccine 06/02/20 R ecorded SARS-CoV-2 (COVID-19) mRNA-1273 vaccine 05/05/20 R ecorded Influenza Virus Vaccine (oldterm) 03/17/19 Recorde d pneumococcal 13-valent vaccine 08/09/15 Recorded Zoster Vaccine Live 6 08/04/14 Recorded Fluzone (oldterm) 01/29/14 Given FluLaval (oldterm) 7 12/21/11 Given FluLaval (oldterm) 8 02/06/11 Given Influenza Vaccine (oldterm) 02/18/09 Given influ virus vac, H1N1, inactive(oldterm) 02/18/09 Given Pneumococcal Vaccine (oldterm) 07/01/04 Given tetanus-diphtheria toxoids (Td) 9 06/20/03 Given 1Result Comment: [01/27/2013] Ordered by Dr. Darlyn Barnes 2Result Comment: HIGH DOSE SEE FORM 3Result Comment: [01/27/2013] Ordered by Dr. Darlyn Barnes 4Admin Note: kai millerofi pasteur 5Result Comment: booster 6Result Comment: [08/07/2014] [facility] 7Admin Note: Gave the VIS 08-21-2011 8Admin Note: No contraindications 9Admin Note: manufacture [employer] Medications allopurinol 100 mg oral tablet 100 mg, 1, tablet, By Mouth, Daily, # 30 tablet, Refills 0, Maintenance, 04/19/21 9:10:00 AM EST, Partial fill upon patient request if the prescription is for a schedule II opioid drug. Start Date: 04/19/21 Status: Ordered Quantity: 30.0 Unit: tablet Repeat number: 1 Coreg 3.125 mg oral tablet 3.125 mg, 1, tablet, By Mouth, 2 times a day, # 60 tablet, Refills 11, Tot. Refills 11, Maintenance, 04/01/24 12:11:00 PM EST, Route to Pharmacy Electronically, [facility], Partial fill upon patient request if the prescription is for a schedule II opioid drug., 153, cm, 01/21/24 8:39:00 EST, Height, 105.3, kg, 10/15/23 10:10:00 EDT, Dry Weight Start Date: 04/01/24 Stop Date: 03/27/25 Status: Ordered Quantity: 60.0 Unit: tablet Repeat number: 12 Cuvitru 0 Refills, Maintenance, 04/09/24 1:03:00 PM EST, Partial fill upon patient request if the prescription is for a schedule II opioid drug. Start Date: 04/09/24 Status: Ordered Repeat number: 1 cyanocobalamin 1000 mcg oral tablet 1,000 mcg, 1, tablet, By Mouth, Daily, # 90 tablet, Refills 0, Maintenance, 08/19/21 8:45:00 AM EDT, Partial fill upon patient request if the prescription is for a schedule II opioid drug. Start Date: 08/19/21 Status: Ordered Quantity: 90.0 Unit: tablet Repeat number: 1 Flonase Allergy Relief 50 mcg/inh nasal spray 1 sprays = 50 mcg, Nares, Both, Daily, shake well before using, # 9.9 mL, 0 Refills, Maintenance, 05/28/23 11:21:00 AM EDT, [place], [facility], Partial fill upon patient request if the prescription is for a schedule II opioid drug., 153, cm, 05/28/23 10:52:00 EDT, Height, 96, kg, 05/18/23 9:38:00 EDT, Dry Weight Start Date: 05/28/23 Status: Ordered Quantity: 9.9 Unit: mL Repeat number: 1 folic acid 1 mg oral tablet 1 mg, 1, tablet, By Mouth, Daily, # 90 tablet, Refills 0, Maintenance, 02/08/17 1:23:06 PM EST Start Date: 02/08/17 Status: Ordered Quantity: 90.0 Unit: tablet Repeat number: 1 furosemide 20 mg oral tablet 20 mg, 1, tablet, By Mouth, 2 times a day, PRN, # 180 tablet, Refills 1, Tot. Refills 1, Maintenance, leg swelling, 10/17/22 12:42:00 PM EDT, Route to Pharmacy Electronically, [facility], Partial fill upon patient request if the prescription is for a schedule II opioid drug., 153, cm, 10/11/22 14:47:00 EDT, Height Start Date: 10/17/22 Status: Ordered Quantity: 180.0 Unit: tablet Repeat number: 2 hot tub hot tub, See Instructions, # 1 units, Refills 0, Tot. Refills 0, Maintenance, Use hot tub daily forarthritis, 06/18/17 5:58:24 PM EDT, Compound Start Date: 06/18/17 Status: Ordered Quantity: 1.0 Unit: Units Repeat number: 1 Indication: Unspecified osteoarthritis, unspecified site lisinopril 10 mg oral tablet 1, tablet, By Mouth, Daily, # 90 tablet, Refills 0, Maintenance, 03/24/24 4:50:00 PM EST, Route to Pharmacy Electronically, [facility], 153, cm, 01/21/24 8:39:00 EST, Height, 105.3, kg, 10/15/23 10:10:00 EDT, Dry Weight Start Date: 03/24/24 Status: Ordered Quantity: 90.0 Unit: tablet Repeat number: 1 Nexium 20 mg oral enteric coated capsule 1 capsule = 20 mg, By Mouth, Daily, # 90 capsule, 1 Refills, Maintenance, 12/25/23 11:01:00 AM EST, EC Capsule, [facility], Partial fill upon patient request if the prescription is for a schedule II opioid drug., 153, cm, 10/15/23 10:10:00 EDT, Height, 105.3, kg, 10/15/23 10:10:00 EDT, Dry Weight Start Date: 12/25/23 Status: Ordered Quantity: 90.0 Unit: capsule Repeat number: 2 Nutrition in Motion referral for morbid obesity and chronic kidney disease III Nutrition in Motion referral for morbid obesity and chronic kidney disease III, See Instructions, #12 each, Refills 0, Tot. Refills 0, Maintenance, Evaluate and treat, 10/28/21 9:34:00 AM EDT, Compound Start Date: 10/28/21 Status: Ordered Quantity: 12.0 Unit: each Repeat number: 1 Pepcid 20 mg oral tablet 1 tablet = 20 mg, By Mouth, 2 times a day, # 180 tablet, 0 Refills, Maintenance, 10/15/23 9:45:00 AMEDT, Tablet, Partial fill upon patient request if the prescription is for a schedule II opioid drug. Start Date: 10/15/23 Status: Ordered Quantity: 180.0 Unit: tablet Repeat number: 1 Prolia 60 mg/mL subcutaneous solution = 60 mg, Subcutaneous Infusion, Every 6 months, 0 Refills, Maintenance, 11/21/22 9:03:00 AM EDT, Partial fill upon patient request if the prescription is for a schedule II opioid drug. Start Date: 11/21/22 Status: Ordered Repeat number: 1 simvastatin 20 mg oral tablet 1, tablet, By Mouth, Daily at bedtime, # 90 tablet, Refills 1, Maintenance, 03/03/24 2:47:00 PM EST,Route to Pharmacy Electronically, [facility], 153, cm, 01/21/24 8:39:00 EST, Height, 105.3, kg, 10/15/23 10:10:00 EDT, Dry Weight Start Date: 03/03/24 Status: Ordered Quantity: 90.0 Unit: tablet Repeat number: 1 sodium bicarbonate 650 mg oral tablet 1 tablet = 650 mg, By Mouth, 2 times a day, 0 Refills, Maintenance, 04/24/21 1:50:00 PM EST, Partial fill upon patient request if the prescription is for a schedule II opioid drug. Start Date: 04/24/21 Status: Ordered Repeat number: 1 Ventolin HFA 108 mcg/inh inhalation aerosol with adapter 2 puffs, Inhalation, 4 times a day, PRN NEEDED FOR WHEEZING, # 18 Gm, 1 Refills, Maintenance, 04/09/24 1:15:00 PM EST, [facility], 153, cm, 04/09/24 12:54:00 EST, Height, 105.3, kg, 10/15/23 10:10:00 EDT, Dry Weight Start Date: 04/09/24 Status: Ordered Quantity: 18.0 Unit: g Repeat number: 2 Vitamin D3 1000 intl units oral tablet 1 tablet = 25 mcg, By Mouth, Daily, # 90 tablet, 2 Refills, Maintenance, 03/27/24 3:27:00 PM EST, [facility], Partial fill upon patient request if the prescription is for a schedule II opioid drug., 153, cm, 01/21/24 8:39:00 EST, Height, 105.3, kg, 10/15/23 10:10:00 EDT, Dry Weight Start Date: 03/27/24 Status: Ordered Quantity: 90.0 Unit: tablet Repeat number: 3 Jamelxjacinto Inhub 500 mcg-50 mcg inhalation powder 1 inhalation, Inhalation, 2 times a day, rinse mouth and throat after use, # 3 each, 3 Refills, Maintenance, 04/15/24 3:30:00 PM EST, Powder, [facility], Partial fill upon patient request if the prescription is for a schedule II opioid drug., 1 inhalation Inhalation 2 times a day,Instr:rinse mouth and throat after use, 153, cm, 04/09/24 12:54:00 EST, Height, 105.3, kg, 10/15/23 10:10:00EDT, Dry Weight Start Date: 04/15/24 Status: Ordered Quantity: 3.0 Unit: each Repeat number: 4 Problem List Condition Confirmation Course Effective Dates Status Health Status Informant Asthma exacerbation Confirmed Active Asthma mild action plan given Confirmed Active CKD (chronic kidney disease), stage III Confirmed Active CVID (common variable immunodeficiency) Confirmed Active Low vitamin B12 level Confirmed Active Diverticulosis Confirmed Active Eczema Confirmed Active Chronic GERD Confirmed Active Glaucoma Confirmed Active History of interstitial nephritis Confirmed Active Hemorrhoids Confirmed Active History of pancreatitis Confirmed Active Hypercholesterolemia Confirmed 01/03/08 Active Hypertension Confirmed Active Tongue lesion Confirmed Active Macrocytic anemia Confirmed Active Morbid obesity Confirmed Active Frequent PVCs Confirmed Active Osteopenia Confirmed Active Premature atrial contractions Confirmed Active Secondary hyperparathyroidism Confirmed Active Severe obesity Confirmed Active Sleep apnea Confirmed Active Uricosuria Confirmed Active Social History Social History Type Response Smoking Status Never smoker entered on: 08/04/14 Sex Sex Representation Female (finding) Patient Care team information Care Team Personnel Name: Yolette Jones RN Position: [facility] RN Member Role: Primary Care Nurse Name: Angie Tucker Position: [facility] Outreach Member Role: Lifetime Consulting Physician Name: Darlyn Barnes MD Position: [facility] Physician - Primary Care Member Role: PCP Address: [address] [facility] [place] [address]- [place] Telecom: Name: Shahbaz Lewis DO Position: [facility] Renal MD Member Role: Lifetime Consulting Physician Address: [address] [place] [address] [address] [facility] [place] [address]- Telecom: Care Team Related Persons Name: PANCHO FARRIS Insurance Providers Guarantor name: COOKIE FELIZ Health Plan Information #: 1 Payer: MEDICARE PART B OUTPT Member Number: NA Policy Number: NA Group Number: NA Health Plan Information #: 2 Payer: [facility] Member Number: NA Policy Number: NA Group Number: NA
--- OUTSIDE RECORDS SUMMARY | 2024-04-28 16:45 | XMS_ITS | Continuity of Care Document ---
Author Organization [facility] Address [address] [place] [address] [place] [address] Phone Care Team Providers Care Director Of Patient Safety Name Role Phone Louie VARGAS, Patricia Unavailable [...] Diagnoses Date Provider Providers Copied on Encounter [address] [place], [id number], [place] tel:[phone] [facility] No Information 3 Louie Gomez. [address] [place], [place], [id number] , [place]. tel: [phone] Office/Estab lished Level [address] [place], [id number], [place] tel: [phone] [facility] prolapse (chief complaint) Incomplete uterovaginal prolapseMixed incontinenceHis tory of suburethral sling procedureLichen sclerosusBody mass index (BMI) 40.0-44.9, adult Sep-2 - 2 Jamey Brumfield. [address] [place] [address], [id number] , [place]. tel: [phone] Referring Provider: . No PCP Established , [address] [place] [address], [address]. tel: [phone] [facility] Level [address] [place], [id number], [place] tel: [phone] [facility] prolapse (chief complaint) Urinary tract infection, site not specifiedLichen sclerosusMixed incontinenceHis tory of suburethral sling procedureIncomp lete uterovaginal prolapseBody mass index (BMI) 40.0-44.9, adult Apr- 2 Jamey Brumfield. [address] [place] [address], [id number] , [place]. tel: [phone] Referring Provider: Patricia Palma, Antonietta[address] [place] [address], [address]. tel: [phone] [address] [place], [id number], [place] tel: [phone] [facility] prolapse (chief complaint) prolapse (chief complaint) Mixed incontinenceUri nary tract infection, site not specifiedHistor y of suburethral sling procedureLichen sclerosusIncomp lete uterovaginal prolapseBody mass index (BMI) 40.0-44.9, adult Dec-3 0-202 1 Jamey Brumfield. [address] [place] [address], [id number] , [place]. tel: [phone] Referring Provider: Antonietta Mcdonald[address] [place] [address], [id number]. tel: [phone] [address] [place], [id number], [place] tel: [phone] [facility] STAN (chief complaint) Incomplete uterovaginal prolapseUrinary tract infection, site not specifiedLichen sclerosusMixed incontinenceHis tory of suburethral sling procedureBody mass index (BMI) 40.0-44.9, adult 1 Jamey Brumfield. [address] [place] [address], [id number] , [place]. tel: [phone] Referring Provider: Patricia Palma, [address] [place] [address], [id number]. tel: [phone] [address] [place], [id number], [place] tel: [phone] [facility] No Information 1 Louie Gomez. [address] [place] [address], [id number] , [place]. tel: [phone] Referring Provider: Patricia Palma [address] [place] [address] [place], [address]. tel: [phone] Office/Estab lished Level [address] [place], [id number], [place] tel: [phone] [facility] Prolapse (URO) (chief complaint) History of suburethral sling procedureIncomp lete uterovaginal prolapseLichen sclerosusMixed incontinenceBod y mass index (BMI) 40.0-44.9, adult 0 1 Louie Gomez. [address] [place] [address], [id number] , [place]. tel: [phone] Referring Provider: Patricia Palma, [address] [place] [address], [address]. tel: [phone] Office/Estab lished Level [address] [place], [id number], [place] tel: [phone] [facility] Prolapse (URO) (chief complaint) History of suburethral sling procedureIncomp lete uterovaginal prolapseLichen sclerosusMixed incontinenceBod y mass index (BMI) 40.0-44.9, adult May-2 1 Louie Gomez. [address] [place], [place], [id number] , [place]. tel: [phone] Referring Provider: Patricia Palma, [address] [place] [address], [id number]. tel: [phone] Office/[facility] [address] [place], [id number], [place] tel: [phone] [facility] Prolapse (URO) (chief complaint) Incomplete uterovaginal prolapseHistory of suburethral sling procedureLichen sclerosusMixed incontinenceBod y mass index (BMI) 40.0-44.9, adult Apr- 1 Louie Gomez. [address] [place], [place], [id number] , [place]. tel: [phone] Referring Provider: Marium Clemens MD, [address] [place] [address], [address]. tel:[phone] Family History Family Member Type Diagnosis Age At Onset Problem No family history of Cancer, kidney Mother Problem renal stone Problem No family history of Cancer, prostate Problem No family history of Cancer, bladder Payers Payer name Insurance type Covered constitution party ID Authoriza tisamm(s) Medicare - [id number] Social History Type Description Quantity Date Captured Comments Alcohol Use Details Unknown Caffeine Use Details Unknown Tobacco Use Status No Information Smoking Status No Information Sex Female Chief Complaint And Reason For Visit No Information Reason For Referral Reason For Referral No Information Plan Of Treatment Date Type Action Status Future Order: Lab Order Urinalys is, Routine ([id number]), Sent on: Sent History Of Present Illness [...] /MAY 29 ya (Dr. Kvng Contreras at [place], [place]). Prior abdominal procedures- cholecystectomy. Feels discomfort [...] mesh sling, anterior colporrhaphy, vulvar biopsyPath: lichen uttqflhpfg53/22/21: (Brissa) 6 weeks post op. No STAN. [...] MUS/APR 10 ya (Dr. Kvng Contreras at [place], [place]). Prior abdominal procedures- cholecystectomy. Feels discomfort [...] mesh sling, anterior colporrhaphy, vulvar biopsyPath: lichen tqcfjkssni41/22/21: (Brissa) 6 weeks post op. No STAN. [...] anterior vaginal wall, rtc 6m. prolapse prolapse 05/11/2020: Both ered by a vaginal bulge for years. No feeling of incomplete emptying. . Vaginal deliveries. Uterus- No. Abn pap/ abn vag bleeding-0. Sexually active- No. Dyspareunia- No. Using Estrace 2 times a week at night. Prior bladder medications No. Prior UDS- Yes. Prior pelvic procedures- Hysterectomy several years ago, /MAY 10 ya (Dr. Kvng Contreras at [place], [place]). Prior abdominal procedures- cholecystectomy. Feels discomfort [...] mesh sling, anterior colporrhaphy, vulvar biopsyPath: lichen hotypabhss89/22/21: (Brissa) 6 weeks post op. No STAN. [...] per week. RTC in 3 months. prolapse prolapse STAN STAN 05/11/2020: Both ered by a vaginal bulge for years. No feeling of incomplete emptying. . Vaginal deliveries. Uterus- No. Abn pap/ abn vag bleeding-0. Sexually active- No. Dyspareunia- No. Using Estrace 2 times a week at night. Prior bladder medications No. Prior UDS- Yes. Prior pelvic procedures- Hysterectomy several years ago, MUS/MAY 10 ya (Dr. Kvng Contreras at [place], [place]). Prior abdominal procedures- cholecystectomy. Feels discomfort [...] mesh sling, anterior colporrhaphy, vulvar biopsyPath: lichen ytjucbpscr38/22/21: (Brissa) 6 weeks post op. No STAN. No bulge. Having: pressure, dysuria, urgency x 2 days. No fever. Nocturia 4x. On estrace. But hasn't used since the surgery. Exam: atrophy, mid urethral incisions approximated. Plan: start clobetasol BID. Keflex empirically, restart estrace. RTC 1 month. Prolapse (URO) 70yoF with advan shama stage [...] MUS/APR 10 ya (Dr. Kvng Contreras at [place], [place]). Prior abdominal procedures- cholecystectomy. Feels discomfort [...] MUS/MAY 10 ya (Dr. Kvng Contreras at [place], [place]). Prior abdominal procedures- cholecystectomy. Feels discomfort [...] for years No feeling of incomplete emptying T4Pifefvs deliveries-3Uterus- NoAbn pap/ abn vag bleeding-0 Sexually active- No, Dyspareunia- NoUsing Estrace 2 times a week at night Prior bladder medications NoPrior UDS- YesPrior pelvic procedures- Hysterectomy several years ago, MUS/APR 10 ya (Dr. Kvng Contreras at [place], [place])Prior abdominal procedures- CholecystectomyFeels discomfort from the sling Voiding Sx:Urgency- YesFrequency- Q3-4hNocturia- [id number]- YesPads per day- Liners [id number]- yes Total fluid intake- Light Constipation- NoFI- No No gross hematuria, dysuria, fevers, chillsUTIs- NoPMH: Asthma Reviewed and discussed prior medical records today- Dr Clemens's notes, plan for [facility] Functional Status Date Functional Assessmen t No Information Instructions Date Instruction Additional Infor mation No Information Assessments Type Assessment Date No Information Patient Care Teams Name Effective Dates (start - stop) Status Members No Information
--- OUTSIDE RECORDS SUMMARY | 2024-04-28 16:45 | XMS_ITS | Encounter Summary ---
Author Organization [facility] Address [address] [place] [address] Phone Care Team Providers Care Music Publisher Name Role Phone Tashia Barnes MD Primary Care Provider [phone] Reason for Visit * Reason Onset Date Comments Med Refill 11/03/2022 Encounter Details Date Type Department Care Team (Late st Contact Info) Description 11/03/2022 Refill [facility] [address] [place] [address] Fabien Lockwood MD [address] [place] [address] [place] [address] Social History Tobacco Use Types [...] Office Visit [facility] [address] [place] [address] Fabien Lockwood MD [address] [facility] [place] [address] documented as of this encounter Visit Diagnoses Not on filedocumented in this encounter Care Teams Music Publisher Relationship Specialty Start Date End Date Tashia Barnes MD [address] [place] [address] [address] [place] [address] PCP - General 12/24/18 documented as of this encounter
--- OUTSIDE RECORDS SUMMARY | 2024-04-28 16:45 | XMS_ITS | Encounter Summary ---
Author Organization [facility] Address [address] [place] [address] Care Team Providers Care Tool Sharpener Name Role Phone Darlyn Barnes MD Primary Care Provider [phone] Encounter Details Date Type Department Care Team (Late st Contact Info) Description 06/26/2016 Scanned Document [address] [place] [id number] Provider, Generic Social History Tobacco Use Types Packs/Day Years Used Date Smoking Tobacco: Never Assessed Sex and Gender Information Value Date Recorded Sex Assigned at Not on file Gender Identity Not on file Sexual Orientation Not on file documented as of this encounter Plan of Treatment Not on file documented as of this encounter Visit Diagnoses Not on filedocumented in this encounter Care Teams Tool Sharpener Relationship Specialty Start Date End Date Darlyn Barnes MD [address] [place] [address] PCP - General 06/26/16 documented as of this encounter
--- OUTSIDE RECORDS SUMMARY | 2024-04-28 16:45 | XMS_ITS | Clinical Summary ---
Author Organization [facility], Address [address] [place] [address] [place] [address] Phone Care Team Providers Care Preparing Box Tender Name Role Phone Tashia Barnes MD Primary Care Provider [phone] Allergies Active Allergy Reactions Criticality Noted Date Comments Candesartan Swelling,Other (see comments) High 02/02/2017 Chlorthalidone Swelling Medium 02/02/2017 Cimetidine Other (see comments),Rash High 02/02/2017 Headaches Ciprofloxacin Other (see comments),Rash Medium 02/02/2017 Cyclobenzaprine Anaphylaxis High 02/02/2017 Erythromycin Other (see comments),Rash High 02/02/2017 Fentanyl Other (see comments) High 02/02/2017 Ibuprofen Anaphylaxis,Other (s ee comments) High 02/02/2017 Lidocaine Anaphylaxis High 10/16/2019 Meperidine Other (see comments) 03/11/2019 Meperidine Hcl Nausea And Vomiting,Other (see comments) High 02/02/2017 Nitrofurantoin Shortness of breath,Other (see comments) High 02/02/2017 Procaine Anaphylaxis High 02/02/2017 Oxycodone Other (see comments) High 02/02/2017 Oxycodone-Acetaminophen Other (see comments) High Penicillins Rash High 02/02/2017 Sulfa Antibiotics Rash Medium 02/02/2017 Sulfamethoxazole-Trimethopr im Rash Low 10/16/2019 Medications furosemide (LASIX) 20 MG tablet Take 20 mg by mouth 1 (one) time each day Active lisinopril (PRINIVIL,ZESTRI L) 5 MG tablet Take 5 mg by mouth 1 (one) time each day Active simvastatin (ZOCOR) 20 MG tablet Take 20 mg by mouth every night Active Cholecalciferol (VITAMIN D) 25 MCG (1000 UT) tablet Take 1,000 Units by mouth 1 (one) time each day Active Fluticasone-Salm eterol,sensor, (AirDuo Digihaler) 113-14 MCG/ACT aerosol powder Inhale 232 mcg Active esomeprazole (NexIUM) [address] capsule Take 1 capsule (20 mg total) by mouth 1 (one) time each day before breakfast 30 capsule 11 3 Active albuterol HFA (PROVENTIL HFA;VENTOLIN HFA) 108 (90 Base) MCG/ACT inhaler Inhale 2 puffs in the morning and 2 puffs at noon and 2 puffs in the evening and 2 puffs before bedtime. 18 g 11 3 Active folic acid (FOLVITE) 1 MG tablet Take 1 tablet (1,000 mcg total) by mouth 1 (one) time each day 90 tablet 3 4 Active allopurinol (ZYLOPRIM) 100 MG tablet Take 1 tablet (100 mg total) by mouth 1 (one) time each day 90 tablet 3 4 Active sodium bicarbonate 650 MG tablet Take 1 tablet (650 mg total) by mouth in the morning and 1 tablet (650 mg total) in the evening. 180 tablet 3 4 Active Active Problems Problem Noted Date Diagnosed Date Common variable immunodeficiency 06/05/2023 Recurrent kidney stone 08/29/2022 Morbid obesity 06/27/2022 Sleep apnea 06/27/2022 Macrocytosis 06/27/2022 History of pancreatitis 06/27/2022 Stage 3b chronic kidney disease 03/11/2019 Arthritis 01/03/2008 Overview (06/27/2022): hands and right knee (right knee needs replacement) Hypertensive disorder Resolved Problems Problem Noted Date Diagnosed Date Resolved Date Edema 12/13/2020 Hypercholesterolemia 021 Vesicoureteral-reflux 2020 Serum creatinine above reference range 12/13/2020 Recurrent urinary tract infection 12/13/2020 Pyelonephritis 12/13/2020 Other abnormal clinical findings 12/13/2020 Overview (03/11/2019): uricosuria, right UPJ obstruction Nephrolithiasis 12/13/2020 Overview (03/11/2019): with a low urinary citrate Interstitial nephritis 12/13 Encounters Date Type Department Care Team Description 03/14/2024 Documentation Only [facility], [address] [place] [address] Corinne Stevens MA from Last 3 Months Immunizations Name Administration Dates Next Due Influenza Split 12/10/2020 Influenza Split High Dose Pr eservative Free IM 12/02/2019 Influenza Whole 01/29/2014, 2,02/06/2011,02/18 Influenza, Trivalent, Adjuvanted 03/17/2019 Moderna SARS-COV-2 06/02/2020,05/05/2020 Pneumococcal Conjugate 13-Valent 08/09/2015 Pneumococcal Polysaccharide 12/10/2020, 7,07/01/2004 Td, Unspecified 06/20/2003 Tdap 01/27/2013 Zoster 08/04/2014 Family History Medical History Relation Comments Stroke Father grandfather Hypertension Mother Kidney disease Mother Lung cancer Mother Nephrolithiasis Mother Stroke Paternal Grandfather Diabetes type II Paternal Grandmother Relation Status Comments Father Mother Paternal Grandfather Paternal Grandmother Social History Tobacco Use Types Packs/Day Years [...] Sign Reading Time Taken Comments Blood Pressure 126/82 06/29/2022 11:36 AM EDT Pulse 86 08/23/2021 1:28 PM EDT Temperature - - Respiratory Rate - - Oxygen Saturation - - Inhaled Oxygen Concentration - - Weight 95.3 kg (210 lb) 03/11/2019 2:18 PM EST Height 152.4 cm (5') 03/11/2019 2:18 PM EST Body Mass Index 41.01 03/11/2019 2:18 PM EST Plan of Treatment Upcoming Encounters Date Type Department Care Team (Late st Contact Info) Description 04/30/2024 4:30 PM EDT Office Visit [facility], [address] [place] [address] Fabien Lockwood MD [address] [place] [address] Health Maintenance Due Date Last Done Comments Breast Cancer Screening 1950 Colorectal Cancer Screening: Annual FOBT 07/13/1999 Colorectal Cancer Screening: Colonoscopy 07/13/1999 Colorectal Cancer Screening: Sigmoidoscopy 07/13/1999 Influenza Vaccine (#1) 2023 , 12/10/2020, 12/02/2019, Additional history exists Pneumococcal Vaccine: 65+ Years Completed 04/19/2023, 12/10/2020, 02/08/2017, Additional history exists Hepatitis B Vaccine Aged Out No longe r eligible based on patient's age to complete this topic Procedures Procedure Name Priority Date/Time Associated Diagnosis Comments SPECIMEN STATUS REPORT Routine 02/15/2024 8:49 AM EST URIC ACID Routine 02/15/2024 8:49 AM EST Stage 3b chronic kidney disease (HCC) ALBUMIN Routine 02/15/2024 8:49 AM EST Stage 3b chronic kidney disease (HCC) PHOSPHATE ( PHOSPHORUS) Routine 02/15/2024 8:49 AM EST Stage 3b chronic kidney disease (HCC) MAGNESIUM Routine 02/15/2024 8:49 AM EST Stage 3b chronic kidney disease (HCC) from Last 3 Months Results * SPECIMEN STATUS REPORT (02/15/2024 8:49 AM EST) Specimen Status Comment [facility] nakul Cavazos Comment: Request Problem Request Problem [facility] was unable to collect sufficient specimen to perform the following test(s), and is providing the patient with re-collection instructions. ?TEST: ??[id number] ??Vitamin D, 25-Hydroxy ?Panel: [id number] 02/15/2024 8:49 AM EST 02/15/2024 us Fabien Lockwood MD LAB BLOOD ORDERABLES Final Re sult [facility] [address] [place] [address] from Last 3 Months Insurance MEDICARE MEDICAID [place] Care Teams Preparing Box Tender Relationship Specialty Start Date End Date Tashia Barnes MD [address] [place] [address], [facility] [address] [place] [address] PCP - General 12/24/18
== END 2024-04-28 15:10 | disposition home or self-care (01) ==
PROVIDERS: PCP Internal Medicine; Visit Provider Hospitalist
DX: J45.40 Moderate persistent asthma, uncomplicated (principal); D80.1 Nonfamilial hypogammaglobulinemia; K44.9 Diaphragmatic hernia without obstruction or gangrene; R91.8 Other nonspecific abnormal finding of lung field; G47.33 Obstructive sleep apnea (adult) (pediatric); J18.0 Bronchopneumonia, unspecified organism; I49.9 Cardiac arrhythmia, unspecified
CPT/HCPCS: 99214

== ENCOUNTER → 2024-04-28 14:38 | Outpatient (BNVA) | payer MEDICARE, MEDICAID, SELFPAY | PROVIDERS: PCP Internal Medicine; Visit Provider Hospitalist | DX: J45.40 Moderate persistent asthma, uncomplicated (principal); J18.0 Bronchopneumonia, unspecified organism; R91.8 Other nonspecific abnormal finding of lung field; G47.33 Obstructive sleep apnea (adult) (pediatric); D80.1 Nonfamilial hypogammaglobulinemia; I49.9 Cardiac arrhythmia, unspecified; K44.9 Diaphragmatic hernia without obstruction or gangrene | CPT/HCPCS: 99212 ==

== ENCOUNTER 2024-09-04 08:28 | Outpatient (AMB) | payer MEDICARE, MEDICAID, SELFPAY ==
--- OUTSIDE RECORDS SUMMARY | 2022-03-06 04:45 | XMS_ITS | Continuity of Care Document ---
Author Organization [facility] Address [address] [place] [address] Phone Care Team Providers Care Information Services Tech Name Role Phone Carmela OD, Amor Unavailable Unavailable Allergies, Adverse Reactions, [...] Diagnoses Date Provider Providers Copied on Encounter [facility] [address], [place], [id number], [place] tel:[phone] [facility] No Information 3 Carmela Amor. [address] [place], [address], [place]. tel:[phone] OFFICE/OUTPA TIENT VISIT, EST [facility] [address], [place], [id number], [place] tel:[phone] [facility] droopy eyelids (chief complaint) Dermatochala sis of right upper eyelidDermat ochalasis of left upper eyelid 2 Raghavendra Hunter. [address] [place], [address], [place]. tel:[phone] Referring Provider: Dale Mabry , [address] [place], [address]. tel:[phone] OFFICE/OUTPA TIENT VISIT, EST [facility] [address], [place], [id number], [place] tel:[phone] [facility] comprehensiv e exam (chief complaint) PresbyopiaAg e-related nuclear cataract, bilateralGla ucoma Suspect bilateralVit reous degeneration , bilateralDer matochalasis of left upper eyelidDermat ochalasis of right upper eyelid Oct-2 2-202 1 Gal[place] Amor. [address] [place] [address], [address], [place]. tel:[phone] Referring Provider: Amor Drummond, [address] [place] [address], [address]. tel:[phone] [facility] [address], [place], [id number], [place] tel:[phone] [facility] comprehensiv e exam (chief complaint) Glaucoma Suspect bilateralAge -related nuclear cataract, bilateralPre sbyopia Oct-0 9-202 0 [place] Amor. [address] [place] [address], [address], [place]. tel:[phone] Referring Provider: Amor Drummond, [address] [place] [address], [address]. tel:[phone] [facility] [address], [place], [id number], [place] tel:[phone] [facility] DFE/OCT (chief complaint) Glaucoma Suspect bilateralAge -related nuclear cataract, bilateralBil ateral vitreous detachment of eyesPresbyop iaDermatocha lasis of right upper eyelidDermat ochalasis of left upper eyelid Oct-0 9-201 9 Carmela Amor. [address] [place] [address], [address], [place]. tel:[phone] Referring Provider: Amor Drummond, [address] [place] [address], [address]. tel:[phone] OFFICE/OUTPA TIENT VISIT, EST [facility] [address], [place], [id number], [place] tel:[phone] [facility] VF/HRT/IOP ck (chief complaint) Glaucoma Suspect bilateral Feb-0 6-201 9 Carmela Amor. [address] [place] [address], [address], [place]. tel:[phone] Referring Provider: Amor Drummond, [address] [place] [address], [address]. tel:[phone] OFFICE/OUTPA TIENT VISIT, [facility] [address], [place], [id number], [place] tel:[phone] [facility] Comprehensiv e exam (chief complaint) Glaucoma Suspect bilateralAge -related nuclear cataract, bilateralBil ateral vitreous detachment of eyesPresbyop ia Oct-2 2 8 Carmela Amor. [address] [place] [address], [address], [place]. tel:[phone] Referring Provider: Amor Drummond, [address] [place] [address], [address]. tel:[phone] Family History Family Member Type Diagnosis Age At Onset No Information Immunizations Vaccine Date Status Comments Pneumo (2 yrs or older)(PPV) administered Source: Other Provider Flu (split) (3 yrs or older) administered Source: Other Provider Payers Payer name Insurance type Covered libertarian ID Authorismael lambert(s) Medicare MB [id number] Social History Type Description Quantity Date Captured Comments Sex Female Smoking Status No Information Sexual Orientation Choose not to disclose Chief Complaint And Reason For Visit No Information Reason For Referral Reason For Referral No Information Plan Of Treatment Date Type Action Status Goal Tobacco cessation counseling completed Future Order: Radiology Order Ze iss [employer] HD-OCT SPT ([id number]), Sent on: Sent Future Order: Radiology Order Ze iss Visual Field Analyzer SPT ([id number]), Sent on: Sent Future Order: Radiology Order Ze iss [employer] HD-OCT SPT ([id number]), Ordered on: Ordered Future Order: Radiology Order Ze iss Visual Field Analyzer SPT ([id number]), Ordered on: Ordered Future Order: Radiology Order Ze iss [employer] HD-OCT SPT ([id number]), Sent on: Sent Future Order: Radiology Order Ze iss Visual Field Analyzer SPT ([id number]), Sent on: Sent History Of Present Illness [...] Instruction Additional Infor josef Impression/Plan Related to [place] tochalasis of right upper eyelid Impression/Plan Related to [place] tochalasis of left upper eyelid Impression/Plan Related to Presb yopia Impression/Plan Related to Age-r elated nuclear cataract, bilateral Impression/Plan Related to Glauc sharon Suspect bilateral Impression/Plan Related to Vitre ous degeneration, bilateral Impression/Plan Related to [place] tochalasis of left upper eyelid Impression/Plan Related to [place] tochalasis of left upper eyelid Impression/Plan Related [...] Related to Presb yopia Impression/Plan Related to [place] tochalasis of right upper eyelid Impression/Plan Related to [place] tochalasis of left upper eyelid Impression/Plan Related [...]
[2024-09-04 08:30] VITALS: BP 138/80; PULSE 66; O2SAT 98; BMI 41.1
--- NOTE | 2024-09-04 08:30 | MHC.OFFVIS ---
Vital Signs 09/04/24 08:30 Height 5 ft Weight 210 lb 8.663 oz BMI 41.1 BP 138/80 Blood Pressure Location Lt brachial Position Sitting Pulse 66 Pulse Source Pulse Oximeter Pulse Oximetry (%) 98 Oxygen Delivery Method Room Air Intake Visit Reasons: Asthma Inverform Machine Operator Required: No Accompanied by: Self / Same As Patient Allergies procaine (From Novocain) Allergy (Severe, Verified 09/04/24 08:33) Chest Pain candesartan (From Atacand) Adverse Reaction (Severe, Verified 09/04/24 08:33) Rash chlorthalidone Adverse Reaction (Severe, Verified 09/04/24 08:33) Rash cimetidine Adverse Reaction (Severe, Verified 09/04/24 08:33) Rash cyclobenzaprine (From Flexeril) Adverse Reaction (Severe, Verified 09/04/24 08:33) Chest Pain fentanyl Adverse Reaction (Severe, Verified 09/04/24 08:33) Chest Pain ibuprofen (From Motrin) Adverse Reaction (Severe, Verified 09/04/24 08:33) Rash meperidine (From Demerol) Adverse Reaction (Severe, Verified 09/04/24 08:33) Rash montelukast (From Singulair) Adverse Reaction (Severe, Verified 09/04/24 08:33) Rash nitrofurantoin (From Macrobid) Adverse Reaction (Severe, Verified 09/04/24 08:33) Rash oxycodone Adverse Reaction (Severe, Verified 09/04/24 08:33) Chest Pain Penicillins Adverse Reaction (Severe, Verified 09/04/24 08:33) Rash sulfa drugs Adverse Reaction (Severe, Uncoded 04/28/24 14:43) Rash HPI Comments Details: The patient is a 74 year woman with known history of allergy and asthma in addition to hypogammaglobulinemia who apparently developed a viral syndrome about 3-4 months ago and started developing worsening cough. The cough is moderate severity not improving. She went through few courses of medications with slow improvement of the cough and now back to her baseline. During the process the patient did have a chest x-ray and subsequently a CT scan of the chest which was done at [facility]. I did personally review the CT scan done early 07/09/2023. The patient did have some areas of airspace disease in the left base which is very suspicious for infectious process. She did have a little bit of bronchiolitis treating budding that area as well that is very typical of a postviral bacterial infection. Patient also had evidence of peribronchial cuffing from bronchitis. And also had multiple pulmonary nodules. The largest nodule measured between 5-6 mm in size and was subsolid nature. She had other solid nodules and other ground-glass nodules. In view of all the changes on her CT scan she should have a CT scan repeated in 6 months from her last 1. Will plan to do it at [facility] as the patient's preference. Will follow up at that time. In the meantime since she her breathing is back to her baseline she continued. She did have her IVIG infuse because of the hypogammaglobulinemia. 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 She did have an allergic reaction some type. She will call the immunology Office for premedications prior to the next dose. The patient will continue to follow closely with immunology. And will follow-up sometime in December after her repeat CT scan. If she has any issues prior to that she will call for an earlier assessment. 01/14/2024 the patient is here for a pulmonary follow-up visit. Overall the patient is doing well. She did have a very eventful few months as she developed a severe allergic reaction after receiving IVIG. This was an infusion. She developed a rash over her body and she was very uncomfortable for those 3 months. Now has subsided completely. She is working closely with their fretted instrument inspector regarding the next step. I believe that they want to try different formulation so therefore she does not have any significant allergic reactions 1 that is provided subcutaneously. Therefore, she will be starting this new therapy soon. I did speak to her regarding premedications. She has discuss that further with her fretted instrument inspector to make sure that she has an adequate premedications to minimize another allergic reaction. The patient also had a CT scan of the chest which I personally reviewed. I also compared to her previous CT scan. Her pulmonary nodules have subsided completely. Likely that this was related to an infectious process specially since some of the nodules were in the tree in bud distribution there was evidence of bronchitis very specific to the left lower lobe and also less so the right lower lobe. With her immunocompromised state this is likely infectious process. At this point the patient does not need any additional imaging studies. If she does become symptomatic she can always call and we can talk about those symptoms and further evaluation at that point. Will follow-up in a year's time to make sure she is doing well and otherwise she will call for any acute issues. 04/28/2024 the patient is here for pulmonary follow-up visit. Overall doing well. Although recently she did have a bout of a respiratory illness. She went to an urgent care initially she was given some prednisone and some cough medication for a viral syndrome. Then 2 weeks later she showed up again with productive cough moderate severity shortness of breath and she was diagnosed with bronchopneumonia. She had an x-ray apparently was abnormal. She was given 2 antibiotics. Now she is feeling back to her baseline. In the meantime she has been getting the subcutaneous IgG infusions with immunology. She is tolerating them well and has been affecting beneficial. The patient will go ahead and have a repeat x-ray to make sure that everything is clear from the pneumonia standpoint. Her lung exam is reassuring. She does continue with her inhaler therapy as prescribed with good results. Will plan to follow-up in a year's time. If her x-ray is abnormal let her know. 09/04/2024 the patient is here for a pulmonary follow-up visit. Since we last spoke she was exposed to a sick contact and started developing worsening respiratory complaints. Initially she was given a short course of prednisone and was not helpful. Then she followed up with her primary care doctor and was diagnosed with pneumonia based on a chest x-ray. I do not have that x-ray. She was having significant chest congestion cough and shortness of breath. She was given some antibiotics and now she is starting to feel better. She is not completely improve. She has been using the Advair generic with partial improvement. Will go ahead and request Incruse to maximize her respiratory therapy. The patient also needs a nebulizer will provide her 1 in the office. She does have a history of cardiac arrhythmias so will just give her Xopenex to minimize cardiac irritability. The patient will return in 3-4 months with PFTs to assess her progress. In the meantime if she develops any worsening symptoms she can always call for further recommendations. [facility] Medical History (Updated 09/04/24 @ 14:45 by Naman Stevens MD) Asthma-COPD overlap syndrome Arrhythmia PIETER (obstructive sleep apnea) Pulmonary nodules Hiatal hernia Hypogammaglobulinemia Asthma Social History Patient Tobacco Use Status: Never used Tobacco Review of Systems Const Denies fever(s) ENT Reports nasal congestion and Reports nasal discharge Card Denies chest pain Resp Reports cough and Reports wheezing GI Reports dyspepsia and Reports heartburn Musc Reports no additional complaints Skin/Breast Denies rash Endo Reports no additional complaints Zane/Lymph Reports no additional complaints Aller/Immun Reports wheezing Physical Exam Vital Signs: Last Vital Signs Pulse 66 09/04/24 08:30 BP 138/80 09/04/24 08:30 Pulse Ox 98 09/04/24 08:30 Oxygen Delivery Method Room Air 09/04/24 08:30 BMI result Body Mass Index 41.1 Const General: comfortable HEENT Head: Yes normocephalic Neck Neck: Yes supple Chest Chest palpation & inspection: normal inspection of the chest Resp Effort & Inspection: normal respiratory effort Auscultation: diminished lung sounds Cardio Rhythm: abnormal rhythm Heart sounds: S1 normal heart sound present and S2 normal heart sound present GI Palpation (GI): Soft to palpation Skin General skin exam: no rashes or lesions noted Extrem General: Yes no clubbing, cyanosis or edema Assessment & Plan Assessment & Plan (1) Asthma: Code(s): J45.909 - Unspecified asthma, uncomplicated Category: Medical Qualifiers: Asthma complication type: uncomplicated Asthma persistence: persistent Asthma severity: moderate Qualified Code(s): J45.40 - Moderate persistent asthma, uncomplicated (2) Hypogammaglobulinemia: Code(s): D80.1 - Nonfamilial hypogammaglobulinemia Category: Medical (3) Hiatal hernia: Code(s): K44.9 - Diaphragmatic hernia without obstruction or gangrene Category: Medical (4) Pulmonary nodules: Code(s): R91.8 - Other nonspecific abnormal finding of lung field Category: Medical (5) PIETER (obstructive sleep apnea): Code(s): G47.33 - Obstructive sleep apnea (adult) (pediatric) Category: Medical (6) Arrhythmia: Code(s): I49.9 - Cardiac arrhythmia, unspecified Category: Medical Qualifiers: Arrhythmia type: unspecified cardiac arrhythmia Qualified Code(s): I49.9 - Cardiac arrhythmia, unspecified (7) Asthma-COPD overlap syndrome: Code(s): J44.89 - Other specified chronic obstructive pulmonary disease Category: Medical Plan continue Advair generic 500/50 start incruse JESSY as needed SC IgG therapy, premedicate with tylenol/zyrtec consider inlab sleep study in view of the cardiac arrhythmia needs nebulizer with xopenex PFTs reflux diet f/u 4 yr Orders: Orders PFT pulmonary function test Today J44.89 - Other specified chronic obstructive pulmonary disease Medications: New umeclidinium 62.5 mcg/actuation (Incruse Ellipta) 1 inh inhalation DAILY 30 ea 11RF 30 days J44.9 - Chronic obstructive pulmonary disease, unspecified, J45.909 - Unspecified asthma, uncomplicated levalbuterol HCl 1.25 mg (3 mL) inhalation BID 180 mL 5RF 30 days J44.9 - Chronic obstructive pulmonary disease, unspecified Coding Level of Care Code Est Pt Level 4 (54028) Complex EM visit Add On G2211 Diagnoses Moderate persistent asthma without complication J45.40 Asthma complication type: uncomplicated Asthma persistence: persistent Asthma severity: moderate Hypogammaglobulinemia D80.1 Hiatal hernia K44.9 Pulmonary nodules R91.8 PIETER (obstructive sleep apnea) G47.33 Cardiac arrhythmia, unspecified cardiac arrhythmia type I49.9 Arrhythmia type: unspecified cardiac arrhythmia Asthma-COPD overlap syndrome J44.89 Time Spent (min) 17
--- OUTSIDE RECORDS SUMMARY | 2024-09-04 08:33 | XMS_ITS | Clinical Summary ---
Author Organization [facility], Address [address] [place] [address] [place] [address] Phone Care Team Providers Care Customer Care Coordinator Name Role Phone Tashia Barnes MD Primary Care Provider Allergies Active Allergy Reactions Criticality Noted Date [...] before bedtime. 18 g 11 3 Active sodium bicarbonate 650 MG tablet Take 1 tablet (650 mg total) by mouth in the morning and 1 tablet (650 mg total) in the evening. 180 tablet 3 4 Active folic acid (FOLVITE) 1 MG tablet Take 1 tablet (1,000 mcg total) by mouth 1 (one) time each day 90 tablet 3 5 Active allopurinol (ZYLOPRIM) 100 MG tablet Take 1 tablet (100 mg total) by mouth 1 (one) time each day 90 tablet 3 5 Active Active Problems Problem Noted Date Diagnosed [...] a low urinary citrate Interstitial nephritis 12/13 Immunizations Immunization Administration Dates Next Due Influenza Split 12/10/2020 [...] Care Team (Late st Contact Info) Description 09/24/2024 5:40 PM EDT Office Visit [facility], [address] [place] [phone] Fabien Lockwood MD [address] [place] [phone] Health Maintenance Due Date Last Done Comments Breast Cancer Screening 1950 Colorectal Cancer Screening: Annual FOBT 07/13/1999 Colorectal Cancer Screening: Colonoscopy 07/13/1999 Colorectal Cancer Screening: Sigmoidoscopy 07/13/1999 Influenza Vaccine (#1) 2024 , 12/10/2020, 12/02/2019, Additional history exists Pneumococcal Vaccine: 50+ Years Completed 04/19/2023, 12/10/2020, 02/08/2017, Additional history exists Pneumococcal Vaccine: Peds (0 to 5 Years) and At-Risk Patients (6 to 49 Years) Discontinued 04/19/2023, 12/10/2020, 02/08/2017, Additional history exists Hepatitis B Vaccine Aged Out No longe r eligible based on patient's age to complete this topic Insurance Medicare Medicaid [place] Care Teams Customer Care Coordinator Relationship Specialty Start Date End Date Tashia Barnes MD [address] [place] [address], [address] [place] [address] PCP - General 12/24/18
--- OUTSIDE RECORDS SUMMARY | 2024-09-04 08:33 | XMS_ITS | Data Portability ---
Author Organization [facility] Clara singh_Flash_ Address [address] [place] [address] Care Team Providers Care Gore Cutter Name Role Phone AYAAN GIRALDO Primary Care Provider Assessment No assessment recorded. Plan of Treatment Reminders Order Date Submit Date Provider Last Modified By Organization Details Last Modified Time Details Appointments None recorded. Lab None recorded. Referral None recorded. Procedures pulse oximetry (PROC) 2018 019 [id number] In-Office Order, Internal Use Only DO Not Attach Compendium DO Not Attach Compendium, Do Not Delete/merge, [id number] 9 20:25:23 Surgeries None recorded. Imaging None recorded. Medication Orders valacyclov ir 1 gram tablet 2018 019 INTERFACE [id number], [address] [place], [address], 9 20:25:13 Patient TargetsNo targets recorded. Patient Instructions Encounter Date Encounter Id Patient Instructions Last Modified By Organization Details Last Modified Time 09/18/2018 [id number] shingles: care instructions Not available 09/20/2018 16:07:22 RTC if any changing or worsening sx. Discussed all medications, uses, indications, side effects, alternatives. All questions/ concerns addressed. Patient instructed to follow up with her primary care provider as soon as possible to ensure complete resolution of acute issue. She was also instructed that should sx persist, the head to the nearest / ER. Not available 09/20/2018 16:07:21 Reason for Referral None Reported. Results Created Date Observation Date Name Description Value Unit Range Abnormal Flag Note LastModifiedBy Organization Detail LastModifiedTime 09/19/19 19 09/18/2018 pulse oxime try (PROC ) pulse oximetry 98% Not Available In-Off ice Order Internal Use Only DO Not Attach Compendium DO Not Attach Compendium, Do Not Delete/merge, [id number] 09/18/2018 19:49:36 Result Notes None recorded. Problems No Known Problems Medical Equipment None Reported. Allergies Allergen ID Allergen Name Allergen Category Reaction Reaction Severity Criticality Documentation Date Start Date Code Code System Note Provider Name and Address Organization Details Recorded Time 199978 oxycodone medicatio n chest pain severe Not available 09/18/2018 [address], [facility] 9 19:53:59 326819 acetamino phen / oxycodone medicatio n chest pain severe Not available 09/18/2018 17810 [address], [facility] 9 19:54:43 453582 Demerol medicatio n vomiting severe Not available 09/18/2018 57450 [address], [facility] 9 19:55:00 839035 fentanyl medicatio n chest pain severe Not available 09/18/2018 [address], [facility] 9 19:55:20 [id number] procaine hydrochlo ride medicatio n anaphylax is severe Not available 09/18/2018 71884 [address], [facility] 9 19:55:45 595156 Motrin medicatio n anaphylax is severe Not available 09/18/2018 61090 [address], [facility] 9 19:55:59 399093 cyclobenz aprine hydrochlo ride medicatio n anaphylax is severe Not available 09/18/2018 [address], [facility] 9 19:56:13 005929 Macrobid medicatio n respirato ry distress severe Not available 09/18/2018 81441 [address], [facility] 9 19:56:41 823053 [place]and medicatio n chest pain severe Not available 09/18/2018 02922 [address] [facility], REPLACED BY [facility] 9 19:57:08 572029 ciproflox acin medicatio n rash moderate Not available 09/18/2018 2551 [address] [facility], REPLACED BY [facility] 9 19:59:24 [id number] Substance with sulfonami de structure and antibacte rial mechanism of action (substanc e) medicatio n rash severe Not available 09/18/[address] [facility], REPLACED BY [facility] 9 19:59:42 236850 Product containin g penicilli n (product) medicatio n rash severe Not available 09/18/[address] [facility], REPLACED BY [facility] 9 20:00:06 [id number] E-Mycin medicatio n rash severe Not available 09/18/[address] [facility], REPLACED BY [facility] 9 20:01:44 905394 ibuprofen medicatio n anaphylax is severe Not available 09/18/[address] [facility], REPLACED BY [facility] 9 20:02:02 305454 Tagamet medicatio n headache severe Not available 09/18/[address] [facility], REPLACED BY [facility] 9 20:10:09 Medications Name Sig Start Date Stop Date Status Note LastModified by Organization Details LastModified Time valacyclovir 1 gram tablet Take 1 tablet every 8 hours by oral route for 10 days. 019 active Not Available Not Available Not Avai lable Lasix 20 mg tablet Take 1 tablet every day by oral route. active Not Available Not Available No t Available simvastatin 20 mg tablet Take 1 tablet every day by oral route. active Not Available Not Available No t Available folic acid 1 mg tablet Take 1 tablet every day by oral route. active Not Available Not Available No t Available lisinopril 5 mg tablet Take 1 tablet every day by oral route. active Not Available Not Available No t Available Baby Aspirin 81 mg chewable tablet Chew 1 tablet every day by oral route. active Not Available Not Available No t Available Pepcid 20 mg tablet Take 1 tablet twice a day by oral route. active Not Available Not Available No t Available albuterol sulfate active Not Available Not Available Not Available Vitals Date Recorded Body weight Body mass index (BMI) Body height Body temperature Oxygen saturation Oxygen saturation in Arterial blood by Pulse oximetry Respiratory rate Heart rate Systolic And Diastolic Provider Name and Address Organization Details Last Updated DateTime 9 55496.3 9 g 42.3 kg/m2 152.4 cm 98.4 [degF] 98 % 98 % 17 /min 66 /min 99/55 mm[Hg] [facility] [place] [employer] [facility] 9 20:09:17 Social History Question Answer Notes LastModified by [email or web address] Details LastModified Time Tobacco Smoking Status Never Smoker [facility] 09/18/2018 20:05:14 What Was The Date Of Your Most Recent Tobacco Screening? 09/18/2018 Information n ot available 09/19/2018 Sex: Unknown Functional Status Question Answer Note LastModified by [email or web address] Details LastModified Time Do you or have you ever used e-cigarettes or vape? Never used electronic cigarettes [email or web address] Information not available 09/18/2018 Mental Status None recorded. Family History Relationship Description Onset Age of this Age Resolved Age Notes LastModified by Organization Details LastModified Time Father No current problems or disability [email or web address] Not available 09/18 19:49:19 Mother No current problems or disability [email or web address] Not available 09/18 19:49:19 Medical History Condition Response Coronary Artery Disease N Gout N Kidney Stones N Hyperthyroidism N Erectile Dysfunction N Colonoscopy N Depression N COPD N Hypothyroidism N Developmental or Behavioral Disorders N Has Pacemaker N Diabetes - Non-insulin N Eczema, Hives or other skin conditions N Anxiety Disorder N Muscle, Joint, or Bone Problems N Vision or Eye Problems N Arthritis N Congenital Anomalies N Cancer N Stroke N Bladder or Kidney Problems N High Cholesterol N Liver Disease N Fibromyalgia N Dialysis N Kidney Disease N Ear or Hearing Problems N Leg/Foot Ulcer N Hypogonadism N ADD or ADHD N Thyroid Problems N Skin Problems N Anemia N Constipation N Blood Clots or DVT N Diabetes N Bleeding Disorder N Seizures/Epilepsy N Tuberculosis N Diabetes - Insulin N Diverticulitis N Heart Attack N Asthma N Allergies N GERD/Reflux N Heart Disease N Pulmonary Embolism N Hypertension N Osteoporosis N Gynecological HistoryNo gynecological history recorded. Obstetrics History GPAL:G 0 P 0 0 0 0 Past Encounters Encounter ID Performer Location Encounter Start Date Encounter Closed Date Diagnosis/Indication Diagnosis SNOMED-CT Code Diagnosis ICD10 Code Diagnosis Note [id number] Mimi Lundy PA-C [facility] [address] [facility] [place] [address] 09/18/2018 19:25:48 09/27/2018 13:45:47 Herpes zoster 1926256 B02.9 Health Concerns Section Related Observation LastModified by Organization Detai ls LastModified Time None Recorded Concern Status LastModified by Organization Details LastModified Time None Recorded Advance Directives Directive None Recorded Payers Insurance Date Sequence Insurance Name Policy Number Policy Rodriguez Covered Member ID Rodriguez Member ID Guarantor Name 03/05/2019 1 [place] Suzanne Hollis [id number] Suzanne Hollis Notes Date Note Type Note Provider Name and Address Organization Details Recorded Time 09/18/2018 text/html Rash/Skin LesionReported bypatient.Location:[facility] (left posterior neck) Quality:painful;red; localized Severity:mild; worsening Duration:has noted for <1 week; x3 days Onset/Timing:abrupt onset Context:no new detergents or skin products; no one else with similar rash Alleviating Factors:nothing gives relief Aggravating Factors:nothing makes it worse Associated Symptoms:no fever; no cold symptoms; no nausea; no vomiting; no diarrhea; no urinary symptoms Mimi Lundy [facility] [place] - [facility] 09/20/2018 16:07:28 OBGyn Episode No OBEpisode recorded.
--- OUTSIDE RECORDS SUMMARY | 2024-09-04 08:33 | XMS_ITS | Clinical Summary ---
Author Organization [facility] Address [address] [place] [address] Phone Care Team Providers Care Fire Sprinkler Fitter Name Role Phone Darlyn Giraldo MD Primary Care Provider [phone] Encounters Date Type Department Care Team Description 08/21/2024 7:41 AM EDT - 08/21/2024 11:59 PM EDT Hospital Encounter [facility] Ultrasound [address] [place] [address] Calculus of kidney Discharge Disposition: Home or Self Care from Last 3 Months Social History Tobacco Use Types Packs/Day Years Used Date Smoking Tobacco: Never Assessed Comments Unknown Sex and Gender Information Value Date Recorded Sex Assigned at Not on file Legal Sex Female 12:20 AM EST Gender Identity Not on file Sexual Orientation Not on file Plan of Treatment Upcoming Encounters Date Type Department Care Team (Late st Contact Info) Description 10/13/2024 8:30 AM EDT [facility]ointment [facility] [address] [address] Health Maintenance Due Date Last Done Comments RSV Immunization Adult Patients (1 - Risk 60-74 years 1-dose series) 2010 Zoster Vaccines (1 of 2) 09/29/2014 08/04/2014 Cholesterol Screening (Lipid Panel) 01/22/2022 Colorectal Cancer Screening: Colonoscopy 01/22/2022 Depression Screening 01/22/2022 Falls Risk Assessment 01/22/2022 Hepatitis C Screening 01/22/2022 Medicare Annual Wellness Visit 01/22/2022 Osteoporosis Screening (Bone Density Screening) 01/22/2022 Social Influencers of Health Screening 01/22/2022 COVID-19 Vaccine ( season) 2023 12/20/2022, 02/16/2021, 06/02/2020, Additional history exists Hypertension/CHF/CAD Annual BMP Blood Test 08/21/2024 08/02/2018, 08/01/2018, 07/31/2018, Additional history exists Influenza Vaccine (#1) 2024 , 11/15/2022, 11/12/2021, Additional history exists Breast Cancer Screening 10/10/2025 10/11/19 24, 08/28/2022, 08/23/2021, Additional history exists DTaP,Tdap,and Td Vaccines (4 - Td or Tdap) 04/18/2033 04/19/2023, 01/27/2013, 06/20/2003 Pneumococcal Vaccine: 50+ Years Completed 04/19/2023, 12/10/2020, 02/08/2017, Additional history exists HIB Vaccines Aged Out No longer eligi ble based on patient's age to complete this topic HPV Vaccines Aged Out No longer eligi ble based on patient's age to complete this topic Hepatitis A Vaccines Aged Out No long er eligible based on patient's age to complete this topic Hepatitis B Vaccines Aged Out No long er eligible based on patient's age to complete this topic IPV Vaccines Aged Out No longer eligi ble based on patient's age to complete this topic MMR Vaccines Aged Out No longer eligi ble based on patient's age to complete this topic Meningococcal ACWY Vaccine Aged Out N o longer eligible based on patient's age to complete this topic Meningococcal B Vaccine Aged Out No l onger eligible based on patient's age to complete this topic RSV Immunization Patients Under 20 months Aged Out No longer eligible based on patient's age to complete this topic Varicella Vaccines Aged Out No longer eligible based on patient's age to complete this topic Procedures Procedure Name Priority Date/Time Associated Diagnosis Comments US RETROPERITONEAL COMPLETE Routine 08/21/2024 8:03 AM EDT Calculus of kidney KAMINI SCREENING DIGITAL Routine 10/11/2023 12:11 PM EDT Encounter for screening mammogram for malignant neoplasm of breast from Last 3 Months or Most Recently Relevant to Health Maintenance Results * US Retroperitoneal Complete (08/21/2024 8:03 AM EDT) Anatomical Region Laterality Modality Body Ultrasound 08/21/2024 3:30 PM EDT Impressions 08/21/2024 3:32 PM EDT Asymmetrically small left kidney. No sonographically visible collecting system calculus. -------- FINAL REPORT -------- Dictated By: Artem Lake Dictated Date: 08/21/2024 15:30 ET Assigned Physician: Artem Lake Reviewed and Electronically Signed By: Artem Lake Signed Date: 08/21/2024 15:32 ET Workstation ID: [id number] Transcribed By: Self Edit Transcribed Date: 08/21/2024 15:30 ET Narrative 08/21/2024 3:32 PM EDT PROCEDURE: Renal ultrasound. HISTORY: calculus of kidney. TECHNIQUE: Grayscale, color Doppler, and spectral Doppler ultrasound of the kidneys. COMPARISON: 01/24/2023. FINDINGS: Right kidney measures 12 cm in length. The left kidney measures 8.1 cm in length. There is a 15 mm right upper pole cortical cyst. There are a few small hypoechoic foci in the left renal cortex which are probably small cysts but are not definitely characterized on this study. Mildly prominent extrarenal pelvis versus parapelvic cysts as well. Limited views of the urinary bladder are unremarkable. Neither ureteral jet is visualized. Procedure Note Artem Lake MD - 08/21/2024 PROCEDURE: Renal ultrasound. HISTORY: calculus of kidney. TECHNIQUE: Grayscale, color Doppler, and spectral Doppler ultrasound ofthe kidneys. COMPARISON: 01/24/2023. FINDINGS: Right kidney measures 12 cm in length. The left kidney measures 8.1 cm in length. There is a 15 mm right upper pole cortical cyst. There are a few small hypoechoic foci in the left renal cortex which areprobably small cysts but are not definitely characterized on this study.Mildly prominent extrarenal pelvis versus parapelvic cysts as well. Limited views of the urinary bladder are unremarkable. Neither ureteraljet is visualized. IMPRESSION: Asymmetrically small left kidney. No sonographically visible collecting system calculus. -------- FINAL REPORT -------- Dictated By: Artem Lake Dictated Date: 08/21/2024 15:30 ET Assigned Physician: Artem Lake Reviewed and Electronically Signed By: Artem Lake Signed Date: 08/21/2024 15:32 ET Workstation ID: [id number] Transcribed By: Self Edit Transcribed Date: 08/21/2024 15:30 ET us Samuel Godoy MD IMG US PROCEDURES Fi nal Result * [facility] SCREENING DIGITAL (10/11/2023 12:11 PM EDT) Anatomical Region Laterality Modality Mammography 10/11/2023 8:27 AM EDT Narrative 10/11/2023 12:[address] [facility] Diagnostic Imaging Department [address] [place] [address] Patient: COOKIE FELIZ Jessica /Age/Sex: 1950 - 73 - F Unit#: [id number] Location/Status: [facility] CLI Mnemonic/Ordering Site: [facility] Ordering Physician: DARLYN GIRALDO MD Kamini Screening Digital - 10/11/23 - 850 Report Status:Signed EXAM: [facility] Screening Digital EXAM DATE AND TIME: 10/11/2023 8:52 AM HISTORY: Screening. Left breast biopsy in 1986, pathology benign. COMPARISON: 08/26/22, 08/23/21, 12/14/20, 04/15/20, 03/10/19 TECHNIQUE: Bilateral digital breast tomosynthesis was performed in the CC and MLO projections. Computer aided detection with CloudAmbo 3D 3.1 was employed. TISSUE DENSITY: a. The breasts are almost entirely fatty. FINDINGS: No suspicious masses, grouped microcalcifications, or areas of architectural distortion are seen. A 7 mm circumscribed nodule in the central right breast, in the nipple line, is unchanged, shown previously to represent a simple cyst by ultrasound. Benign secretory calcifications are again seen. The skin and vascularity are unremarkable. IMPRESSION: Stable mammographic appearance of the breasts. No evidence of malignancy is seen. A negative mammogram in the presence of a clinically suspicious palpable abnormality does not preclude the possibility of malignancy or alter the indications for biopsy. BI-RADS: Category 2: Benign RECOMMENDATION(S): 1: Routine screening mammogram BILATERAL in 1 year. Dictating Physician: CLARISA ENGLE MD Electronically Signed by: CLARISA ENGLE MD Dic Date/Time: 10/11/23 1210 Sign date/Time: 10/11/23 1211 Procedure Note Clarisa Engle MD - 12/05/2023 [facility] Diagnostic Imaging Department [address] [place], [place] [id number] Patient: TRINIJOAQUINA REYESCOOKIECLAUDINE Lopez D.O.B./Age/Sex: 1950 - 73 - F Unit#: [id number] Location/Status: [facility] CLI Mnemonic/Ordering Site: [facility] Ordering Physician: DARLYN GIRALDO MD [facility] Screening Digital - 10/11/23 - 850 Report Status:Signed EXAM: [facility] Screening Digital EXAM DATE AND TIME: 10/11/2023 8:52 AM HISTORY: Screening. Left breast biopsy in 1986, pathology benign. COMPARISON: 08/26/22, 08/23/21, 12/14/20, 04/15/20, 03/10/19 TECHNIQUE: Bilateral digital breast tomosynthesis was performed in the CCand MLO projections. Computer aided detection with CloudAmbo 3D 3.1was employed. TISSUE DENSITY: a. The breasts are almost entirely fatty. FINDINGS: No suspicious masses, grouped microcalcifications, or areas ofarchitectural distortion are seen. A 7 mm circumscribed nodule in the central rightbreast, in the nipple line, is unchanged, shown previously to represent a simple cystby ultrasound. Benign secretory calcifications are again seen. The skin and vascularity are unremarkable. IMPRESSION: Stable mammographic appearance of the breasts. No evidence of malignancyis seen. A negative mammogram in the presence of a clinically suspicious palpable abnormality does not preclude the possibility of malignancy or alter the indications for biopsy. BI-RADS: Category 2: Benign RECOMMENDATION(S): 1: Routine screening mammogram BILATERAL in 1 year. Dictating Physician: CLARISA ENGLE MD Electronically Signed by: CLARISA ENGLE MD Dic Date/Time: 10/11/23 1210 Sign date/Time: 10/11/23 1211 Darlyn Giraldo MD IMG BI PROCEDURES Final Result from Last 3 Months or Most Recently Relevant to Health Maintenance Insurance MEDICARE [place]ICA[place] - [place] Care Teams Fire Sprinkler Fitter Relationship Specialty Start Date End Date Darlyn Giraldo MD [address] [place] [address] PCP - General Internal Medicine 07/23/24
--- OUTSIDE RECORDS SUMMARY | 2024-09-04 08:33 | XMS_ITS | Encounter Summary ---
Author Organization [facility] Address [address] [place] [address] Care Team Providers Care Warehouser Name Role Phone Darlyn Barnes MD Primary Care Provider [phone] Encounter Details Date Type Department Care Team (Late st Contact Info) Description 06/26/2016 Scanned Document [address] [place] [id number] Provider, Generic Social History Tobacco Use Types Packs/Day Years Used Date Smoking Tobacco: Never Assessed Comments Unknown Sex and Gender Information Value Date Recorded Sex Assigned at Not on file Legal Sex Female 9:59 AM EDT Gender Identity Not on file Sexual Orientation Not on file documented as of this encounter Plan of Treatment Not on file documented as of this encounter Visit Diagnoses Not on filedocumented in this encounter Care Teams Warehouser Relationship Specialty Start Date End Date Darlyn Barnes MD [address] [place] [address] PCP - General 06/26/16 documented as of this encounter
== END 2024-09-04 08:54 | disposition home or self-care (01) ==
LOC: HO.HPS 08:28
PROVIDERS: PCP Internal Medicine; Visit Provider Hospitalist
DX: J45.40 Moderate persistent asthma, uncomplicated (principal); D80.1 Nonfamilial hypogammaglobulinemia; K44.9 Diaphragmatic hernia without obstruction or gangrene; R91.8 Other nonspecific abnormal finding of lung field; G47.33 Obstructive sleep apnea (adult) (pediatric); I49.9 Cardiac arrhythmia, unspecified; J44.89 Other specified chronic obstructive pulmonary disease
CPT/HCPCS: 99214; G2211

== ENCOUNTER → 2024-09-04 08:28 | Outpatient (BNVA) | payer MEDICARE, MEDICAID, SELFPAY | PROVIDERS: PCP Internal Medicine; Visit Provider Hospitalist | DX: J44.89 Other specified chronic obstructive pulmonary disease (principal); J45.40 Moderate persistent asthma, uncomplicated; R91.8 Other nonspecific abnormal finding of lung field; D80.1 Nonfamilial hypogammaglobulinemia; I49.9 Cardiac arrhythmia, unspecified; G47.33 Obstructive sleep apnea (adult) (pediatric); K44.9 Diaphragmatic hernia without obstruction or gangrene | CPT/HCPCS: 99212 ==

== ENCOUNTER 2024-11-19 10:30 | Outpatient (REF) | payer MEDICARE, MEDICAID, SELFPAY ==
--- NOTE | 2024-11-19 10:42 | PFT_ITS ---
Indication: COPD Spirometry FEV1 to FVC 78%; FEV1 2.01 L; FVC 2.57 L. No significant response to bronchodilators noted. Lung Volumes Total lung capacity 103% predicted; residual volume 107% predicted Diffusion Capacity DLCO 79% predicted Comparisons None Interpretation No obstructive nor restrictive ventilatory defects identified. No significant response to bronchodilators noted. Lung volumes are normal. The patient does have a mild isolated diffusion impairment. Clinical correlation warranted. MTDD
[2024-11-19 11:16] VITALS: PULSE 73; O2SAT 100
--- OUTSIDE RECORDS SUMMARY | 2024-11-19 12:06 | XMS_ITS | Encounter Summary ---
Author Organization [facility] Address [address] [place] [address] Phone Care Team Providers Care Retail Banking Manager Name Role Phone Tashia Barnes MD Primary Care Provider [phone] Encounter Details Date Type Department Care Team (Late st Contact Info) Description 06/27/2022 Documentation Only [facility] [address] [place] [address] Fabien Lockwood MD [address] [place] [address] [place] [address] Social History Tobacco Use Types [...] Care Team (Late st Contact Info) Description 02/04/2025 11:00 AM EST Office Visit [facility] [address] [place] [address] Fabien Lockwood MD [address] [place] [address] [place] [address] documented as of this encounter Visit Diagnoses Not on filedocumented in this encounter Care Teams Retail Banking Manager Relationship Specialty Start Date End Date Tashia Barnes MD [address] [facility], [facility] [address] [place] [address] PCP - General 12/24/18 documented as of this encounter
--- OUTSIDE RECORDS SUMMARY | 2024-11-19 12:06 | XMS_ITS | Encounter Summary ---
Author Organization [facility] Address [address] [place] [address] Phone Care Team Providers Care Outside Parts Sales Name Role Phone Tashia Barnes MD Primary Care Provider [phone] Reason for Visit * Reason Comments Med Refill Encounter Details Date Type Department Care Team (Late st Contact Info) Description 11/16/2024 Refill [facility] [address] [place] [address] Fabien Lockwood MD [address] [place] [address] Social History Tobacco Use Types [...] Office Visit [facility] [address] [place] [address] Fabien Lockwood MD [address] [place] [address] documented as of this encounter Visit Diagnoses Not on filedocumented in this encounter Care Teams Outside Parts Sales Relationship Specialty Start Date End Date Tashia Barnes MD [address] [place] [address] [address] [place] [address] PCP - General 12/24/18 documented as of this encounter
--- OUTSIDE RECORDS SUMMARY | 2024-11-19 12:06 | XMS_ITS | Encounter Summary ---
Author Organization [facility] Address [address] [place] [address] Phone Care Team Providers Care Lot Worker Name Role Phone Tashia Barnes MD Primary Care Provider [phone] Encounter Details Date Type Department Care Team (Late st Contact Info) Description 06/11/2021 Documentation Only [facility] [address] [place] [phone] Trinh Connelly PA Social History Tobacco Use [...] Visit [facility] [address] [place] [phone] Fabien Lockwood MD [address] [place] [address] [place] [phone] documented as of this encounter Visit Diagnoses Not on filedocumented in this encounter Care Teams Lot Worker Relationship Specialty Start Date End Date Tashia Barnes MD [address] [place] [address] [place] [address] PCP - General 12/24/18 documented as of this encounter
--- OUTSIDE RECORDS SUMMARY | 2024-11-19 12:06 | XMS_ITS | Encounter Summary ---
Author Organization [facility] Address [address] [place] [address] Phone Care Team Providers Care Filler Feeder Name Role Phone Tashia Barnes MD Primary Care Provider [phone] Encounter Details Date Type Department Care Team (Late st Contact Info) Description 05/17/2022 Documentation Only [facility] [address] [place] [address] Fabien Lockwood MD [address] [place] [address] [place] [address] Social History Tobacco Use Types [...] Office Visit [facility] [address] [place] [address] Fabien Lockwood MD [address] [place] [address] [place] [address] documented as of this encounter Visit Diagnoses Not on filedocumented in this encounter Care Teams Filler Feeder Relationship Specialty Start Date End Date Tashia Barnes MD [address] [facility], [facility] [address] [place] [address] PCP - General 12/24/18 documented as of this encounter
--- OUTSIDE RECORDS SUMMARY | 2024-11-19 12:06 | XMS_ITS | Clinical Summary ---
Author Organization [facility] Address [address] [place] [address] Phone Care Team Providers Care Metal Weigher Name Role Phone Darlyn Barnes MD Primary Care Provider [phone] Encounters Date Type Department Care Team Description 10/13/2024 8:04 AM EDT - 10/13/2024 11:59 PM EDT Hospital [facility] [address] [phone] Encounter for screening mammogram for breast cancer Discharge Disposition: Home or Self Care 08/21/2024 7:41 AM EDT - 08/21/2024 11:59 PM EDT Hospital Encounter [facility]ound [address] [place] [phone] Calculus of kidney Discharge Disposition: Home or Self Care from Last 3 Months Surgical History Surgery Date Site/Laterality Comments STEREOTACTIC CORE BIOPSY Left BREAST MASS EXCISION Social History Tobacco Use Types Packs/Day Years Used Date Smoking Tobacco: Never Assessed Comments No Sex and Gender Information Value Date Recorded Sex Assigned at Not on file Legal Sex Female 12:20 AM EST Gender Identity Not on file Sexual Orientation Not on file Obstetrics History Para Term AB IAB SAB Ectopic Multiple Livin g Live Births 3 Last Filed Vital Signs Vital Sign Reading Time Taken Comments Blood Pressure - - Pulse - - Temperature - - Respiratory Rate - - Oxygen Saturation - - Inhaled Oxygen Concentration - - Weight 93 kg (205 lb) 10/13/2024 8:12 AM EDT Height 154.9 cm (5' 1 ) 10/13/2024 8:12 AM EDT Body Mass Index 38.73 10/13/2024 8:12 AM EDT Plan of Treatment Health Maintenance Due Date Last Done Comments Colorectal Cancer Screening: Colonoscopy 1950 RSV Immunization Adult Patients (1 - Risk 60-74 years 1-dose series) 2010 Zoster Vaccines (1 of 2) 09/29/2014 08/04/2014 Cholesterol Screening (Lipid Panel) 01/22/2022 Falls Risk Assessment 01/22/2022 Hepatitis C Screening 01/22/2022 Medicare Annual Wellness Visit 01/22/2022 Osteoporosis Screening (Bone Density Screening) 01/22/2022 Social Influencers of Health Screening 01/22/2022 Depression Screening 02/20/2024 Hypertension/CHF/CAD Annual BMP Blood Test 08/21/2024 08/02/2018, 08/01/2018, 07/31/2018, Additional history exists COVID-19 Vaccine ( season) 2024 12/20/2022, 02/16/2021, 06/02/2020, Additional history exists Influenza Vaccine (#1) 2024 , 11/15/2022, 11/12/2021, Additional history exists Breast Cancer Screening 10/13/2026 10/14/19, 10/11/2023, 08/28/2022, Additional history exists DTaP,Tdap,and Td Vaccines (4 [...] Procedure Name Priority Date/Time Associated Diagnosis Comments MG MAMMO DIGITAL SCREENING W LIU BILAT Routine 10/13/2024 8:24 AM EDT Encounter for screening mammogram for breast cancer US RETROPERITONEAL COMPLETE Routine 08/21/2024 8:03 AM EDT Calculus of kidney from Last 3 Months Results * MG Mammo Digital Screening w Liu bilat (10/13/2024 8:24 AM EDT) Anatomical Region Laterality Modality Breast Bilateral Mammography 10/13/2024 9:35 AM EDT Impressions 10/13/2024 5:23 PM EDT No mammographic evidence of malignancy. No suspicious interval change. A negative mammogram in the presence of a clinically suspicious palpable abnormality does not preclude the possibility of malignancy or alter the indications for biopsy. ASSESSMENT: BI-RADS 2: BENIGN RECOMMENDATION(S): 1: Routine screening mammogram BILATERAL in 1 year. [facility] location[facility] [address], [address] -------- FINAL REPORT -------- Dictated By: Ayaz Steele Dictated Date: 10/13/2024 09:35 ET Assigned Physician: Ayaz Steele Reviewed and Electronically Signed By: Ayaz Steele Signed Date: 10/13/2024 17:23 ET Workstation ID: [id number] Transcribed By: Self Edit Transcribed Date: 10/13/2024 09:36 ET Narrative 10/13/2024 5:23 PM EDT EXAM: SCREENING MAMMOGRAPHY, BILATERAL HISTORY: SCREENING. Excision left breast. COMPARISON: 10/11/23, 08/26/22, 08/23/21, 12/14/20, 04/30/20, 04/15/20 TECHNIQUE: Synthesized CC and MLO projections of each breast. Tomosynthesis of each breast in the CC and MLO projections. ADDITIONAL IMAGING: None Computer-aided detection was employed with the AdXpose AI 3-D. TISSUE DENSITY: There are scattered areas of fibroglandular density. (BI-RADS category B) FINDINGS: RIGHT BREAST: No new suspicious mass. No suspicious calcification. No distortion. There are some circumscribed equal density oval masses similar to previous. No additional suspicious right breast findings LEFT BREAST: No suspicious mass. No suspicious calcification. No change in the architecture. Findings consistent with prior surgery similar to previous. No additional suspicious left breast findings Procedure Note Ayaz Steele MD - 10/13/2024 EXAM: SCREENING MAMMOGRAPHY, BILATERAL HISTORY: SCREENING. Excision left breast. COMPARISON: 10/11/23, 08/26/22, 08/23/21, 12/14/20, 04/30/20, 04/15/20 TECHNIQUE: Synthesized CC and MLO projections of each breast.Tomosynthesis of each breast in the CC and MLO projections. ADDITIONAL IMAGING: None Computer-aided detection was employed with the AdXpose AI 3-D. TISSUE DENSITY: There are scattered areas of fibroglandular density.(BI-RADS category B) FINDINGS: RIGHT BREAST: No new suspicious mass. No suspicious calcification. No distortion. There are some circumscribed equal density oval masses similar toprevious. No additional suspicious right breast findings LEFT BREAST: No suspicious mass. No suspicious calcification. No change in thearchitecture. Findings consistent with prior surgery similar to previous. No additional suspicious left breast findings IMPRESSION: No mammographic evidence of malignancy. No suspicious interval change. A negative mammogram in the presence of a clinically suspicious palpableabnormality does not preclude the possibility of malignancy or alter theindications for biopsy. ASSESSMENT: BI-RADS 2: BENIGN RECOMMENDATION(S): 1: Routine screening mammogram BILATERAL in 1 year. [facility] [address], [address] -------- FINAL REPORT -------- Dictated By: Ayaz Steele Dictated Date: 10/13/2024 09:35 ET Assigned Physician: Ayaz Steele Reviewed and Electronically Signed By: Ayaz Steele Signed Date: 10/13/2024 17:23 ET Workstation ID: [id number] Transcribed By: Self Edit Transcribed Date: 10/13/2024 09:36 ET us Self Referral Sppl IMG BI PROCEDURES Final Resul t * US Retroperitoneal Complete (08/21/2024 8:03 AM [...] Signed Date: 08/21/2024 15:32 ET Workstation ID: [id number] Transcribed By: Self Edit Transcribed Date: 08/21/2024 [...] Signed Date: 08/21/2024 15:32 ET Workstation ID: [id number] Transcribed By: Self Edit Transcribed Date: 08/21/2024 15:30 ET us Samuel Godoy MD IMG US PROCEDURES Fi nal Result from Last 3 Months Insurance MEDICARE MEDICAID - [place] Care Teams Metal Weigher Relationship Specialty Start Date End Date Darlyn Barnes MD [address] [place] [address] PCP - General Internal Medicine 07/23/24
--- OUTSIDE RECORDS SUMMARY | 2024-11-19 12:06 | XMS_ITS | Clinical Summary ---
Author Organization [facility] Address [address] [place] [address] Care Team Providers Care Base Brander Name Role Phone Darlyn Barnes MD Primary Care Provider [phone] Allergies Active Allergy Reactions Criticality Noted Date [...] Family Unable to Define Medium 07/24/2016 Medications traMADol (ULTRAM) 50 MG tablet Take 50 mg by mouth Every 6 (six) to 8 (eight) hours as needed. For Pain 0 7 Active simvastatin (ZOCOR) 20 MG tablet 1 TABLET BY MOUTH DAILY AT BEDTIME,X90 DAYS 3 7 Active PEG 4115-SEb-XqQco-NaCl -NaSulf (PEG-3350/ELECTROLY JANET) 236 g Recon Soln MIX AND DRINK 240 ML EVERY 15 MINUTES ORALLY 16 DOSE(S) 0 7 Active ondansetron (ZOFRAN-ODT) 8 MG disintegrating tablet DISSOLVE 1 TABLET BY MOUTH EVERY 8 HOURS NEEDED 0 7 Active lisinopril (PRINIVIL,ZeSTRIL) 5 MG tablet 1 TABLET BY MOUTH DAILY,X90 DAYS 3 7 Active levoFLOXacin (LEVAQUIN) 250 MG tablet TAKE 1 TABLET BY MOUTH DAILY FOR TONIGHT AND 1 TABLET IF UTI WHILE TRAVELING. 0 7 Active furosemide (LASIX) 20 MG tablet 1 TABLET BY MOUTH DAILY,X90 DAYS 3 7 Active cephalexin (KEFLEX) 500 MG capsule Take 500 mg by mouth 2 (two) times a day. 0 7 Active butalbital-acetamin ophen-caffeine (FioriCET, ESGIC) 50-325-40 mg tablet Take 1 tablet by mouth 4 times daily (every 6 hours) as needed. 0 7 Active Active Problems Problem Noted Date Diagnosed [...] Health Maintenance Due Date Last Done Comments Advance Care Planning 1950 Hepatitis C Virus Screening 1950 DTaP/Tdap/Td Vaccines (1 - Tdap) 1969 Mammogram 1990 Colonoscopy 07/13/1995 Pneumococcal Vaccines 50+ (1 of 1 - PCV) 2000 Zoster (Shingles) Vaccine (1 of 2) 2000 RSV Vaccine 60 years and old er and Patients (1 - Risk 60-74 years 1-dose series) 2010 DXA Bone Density (Females,Ag es 65 and older) 07/13/2015 Influenza Vaccine 09/19/2024 COVID-19 Vaccine (1 - 2023-2 5 season) 2024 Hepatitis B Vaccines Aged Out No long er eligible based on patient's age to complete this topic Insurance MEDICARE PART A & B Care Teams Base Brander Relationship Specialty Start Date End Date Darlyn Barnes MD [address] [place] [address] PCP - General 06/26/16
--- OUTSIDE RECORDS SUMMARY | 2024-11-19 12:06 | XMS_ITS | Encounter Summary ---
Author Organization [facility] Address [address] [place] [address] Care Team Providers Care Billet Assembler Name Role Phone Darlyn Barnes MD Primary Care Provider [phone] Encounter Details Date Type Department Care Team (Late st Contact Info) Description 06/26/2016 Scanned Document [address] [place] [phone] Provider, Generic Social History Tobacco Use [...] on filedocumented in this encounter Care Teams Billet Assembler Relationship Specialty Start Date End Date Darlyn Barnes MD [address] [place] [address] PCP - General 06/26/16 documented as of this encounter
--- OUTSIDE RECORDS SUMMARY | 2024-11-19 12:06 | XMS_ITS | Encounter Summary ---
Author Organization [facility] Address [address] [place] [address] Care Team Providers Care Byproducts Operator Name Role Phone Darlyn Barnes MD Primary Care Provider [phone] Reason for Visit * Reason Onset Date Comments Disc returned from PACS 10/06/2016 Encounter Details Date Type Department Care Team (Late st Contact Info) Description 10/06/2016 Telephone [facility] [place] [address] [address] Jonathan Howell MD [address] [address] Disc returned from PACS Social History Tobacco [...] 10/06/2016 12:21 PM EDT Rcv'd disc from [facility] multiple studies returned from PACS mailed to pt documented in this encounter Plan of Treatment Not on file documented as of this encounter Visit Diagnoses Not on filedocumented in this encounter Care Teams Byproducts Operator Relationship Specialty Start Date End Date Darlyn Barnes MD [address] [place] [address] PCP - General 06/26/16 documented as of this encounter
--- OUTSIDE RECORDS SUMMARY | 2024-11-19 12:06 | XMS_ITS | Encounter Summary ---
Author Organization [facility] Address [address] [place] [address] Care Team Providers Care Electronic Engraver Name Role Phone Darlyn Branes MD Primary Care Provider [phone] Reason for Visit * Reason Onset Date Comments Disc Sent To PACS 10/02/2016 Encounter Details Date Type Department Care Team (Late st Contact Info) Description 10/02/2016 Telephone [facility] Urologic Surgery [place] [address] [address] Jonathan Howell MD [address] [address] Disc Sent To PACS Social History Tobacco [...] 10/02/2016 12:06 PM EDT Rcv'd disc from [facility] multiple studies sent to PACS documented in this encounter Plan of Treatment Not on file documented as of this encounter Visit Diagnoses Not on filedocumented in this encounter Care Teams Electronic Engraver Relationship Specialty Start Date End Date Darlyn Barnes MD [address] [place] [address] PCP - General 06/26/16 documented as of this encounter
--- OUTSIDE RECORDS SUMMARY | 2024-11-19 12:06 | XMS_ITS | Encounter Summary ---
Author Organization [facility] Address [address] [place] [address] Phone Care Team Providers Care Soda Tester Name Role Phone Tashia Barnes MD Primary Care Provider [phone] Reason for Visit * Reason Onset Date Comments Med Refill 11/03/2022 Encounter Details Date Type Department Care Team (Late st Contact Info) Description 11/03/2022 Refill [facility] [address] [place] [address] Fabien Lockwood MD [address] [facility] [place] [address] Social History Tobacco Use Types [...] Office Visit [facility] [address] [place] [address] Fabien Lockwood MD [address] [facility] [place] [address] documented as of this encounter Visit Diagnoses Not on filedocumented in this encounter Care Teams Soda Tester Relationship Specialty Start Date End Date Tashia Barnes MD [address] [place] [address] PCP - General 12/24/18 documented as of this encounter
--- OUTSIDE RECORDS SUMMARY | 2024-11-19 12:06 | XMS_ITS | Encounter Summary ---
Author Organization [facility] Address [address] [place] [address] Phone Care Team Providers Care Lathe Setup Operator Name Role Phone Tashia Barnes MD Primary Care Provider [phone] Reason for Visit * Reason Onset Date Comments Med Refill 07/08/2022 Encounter Details Date Type Department Care Team (Late st Contact Info) Description 07/08/2022 Refill [facility] [address] [place] [address] Fabien Lockwood MD [address] [facility] [place] [address] Social History Tobacco Use Types [...] Office Visit [facility] [address] [place] [address] Fabien Lockwood MD [address] [facility] [place] [address] documented as of this encounter Visit Diagnoses Not on filedocumented in this encounter Care Teams Lathe Setup Operator Relationship Specialty Start Date End Date Tashia Barnes MD [address] [place] [address] PCP - General 12/24/18 documented as of this encounter
--- OUTSIDE RECORDS SUMMARY | 2024-11-19 12:06 | XMS_ITS | Encounter Summary ---
Author Organization [facility] Address [address] [place] [address] Phone Care Team Providers Care Director Pharmacovigilance Name Role Phone Tashia Barnes MD Primary Care Provider Encounter Details Date Type Department Care Team (Late st Contact Info) Description 03/14/2024 Documentation Only [facility] [address] [facility] [place] [address] [place] [address] [place] [address] Social History Tobacco Use Types [...] Visit [facility] [address] [facility] [place] [address] Fabien Lockwood MD [address] [facility] [place] [address] documented as of this encounter Visit Diagnoses Not on filedocumented in this encounter Care Teams Director Pharmacovigilance Relationship Specialty Start Date End Date Tashia Barnes MD [address] [facility], [address] [place] [id number] PCP - General 12/24/18 documented as of this encounter
--- OUTSIDE RECORDS SUMMARY | 2024-11-19 12:06 | XMS_ITS | Clinical Summary ---
Author Organization [facility] [place] Address [address] [place] [address] [place] [address] Phone Care Team Providers Care Lithographic Retoucher Apprentice Name Role Phone Tashia Barnes MD Primary Care Provider [phone] Allergies Active Allergy Reactions Criticality Noted Date [...] 1 (one) time each day Active lisinopril (PRINIVIL,ZESTR IL) 5 MG tablet Take 5 mg by mouth 1 (one) time each day Active simvastatin (ZOCOR) 20 MG tablet Take 20 mg by mouth every night Active Cholecalciferol (VITAMIN D) 25 MCG (1000 UT) tablet Take 1,000 Units by mouth 1 (one) time each day Active Fluticasone-Jose meterol,sensor, (AirDuo Digihaler) 113-14 MCG/ACT aerosol powder Inhale 232 mcg Active esomeprazole (NexIUM) [address] capsule Take 1 capsule (20 mg total) by mouth 1 (one) time each day before breakfast 30 capsule 11 07/11/19 23 Active albuterol HFA (PROVENTIL HFA;VENTOLIN HFA) 108 (90 Base) MCG/ACT inhaler Inhale 2 puffs in the morning and 2 puffs at noon and 2 puffs in the evening and 2 puffs before bedtime. 18 g 11 07/11/19 23 Active folic acid (FOLVITE) 1 MG tablet Take 1 tablet (1,000 mcg total) by mouth 1 (one) time each day 90 tablet 3 05/01/19 25 Active allopurinol (ZYLOPRIM) 100 MG tablet Take 1 tablet (100 mg total) by mouth 1 (one) time each day 90 tablet 3 05/01/19 25 Active sodium bicarbonate 650 MG tablet TAKE 1 TABLET BY MOUTH IN THE MORNING AND 1 IN THE EVENING 180 tablet 11/18/19 25 Active sodium bicarbonate 650 MG tablet Take 1 tablet (650 mg total) by mouth in the morning and 1 tablet (650 mg total) in the evening. 180 tablet 3 11/12/19 24 025 Discontinued Active Problems Problem Noted Date Diagnosed Date [...] Encounters Date Type Department Care Team Description 11/16/2024 Refill [facility] [place], [address] [facility] [place] [address] Fabien Lockwood MD 09/24/2024 5:40 PM EDT Office Visit [facility], [address] [place] [address] Fabien Lockwood MD Stage 3b chronic kidney disease (HCC) (Primary Dx) from Last 3 Months Immunizations Immunization Administration Dates Next Due Influenza [...] Visit [facility] [place], [address] [facility] [place] [address] Fabien Lockwood MD [address] [facility] [place] [address] Health Maintenance Due Date Last Done Comments [...] topic Insurance Medicare Medicaid [place] Care Teams Lithographic Retoucher Apprentice Relationship Specialty Start Date End Date Tashia Barnes MD [address] [place] [address], [address] [place] [address] PCP - General 12/24/18
--- OUTSIDE RECORDS SUMMARY | 2024-11-19 12:06 | XMS_ITS | Encounter Summary ---
Author Organization [facility] [place] Address [address] [place] [address] Phone Care Team Providers Care Transport Aide Name Role Phone Tashia Barnes MD Primary Care Provider [phone] Encounter Details Date Type Department Care Team (Late st Contact Info) Description 05/24/2020 Office Communication [facility] [place], [address] [place] [phone] Trinh Connelly PA Social History Tobacco Use [...] Visit [facility] [place] [facility], [address] [place] [address] Fabien Lockwood MD [address] [place] [address] [place] [address] documented as of this encounter Visit Diagnoses Not on filedocumented in this encounter Care Teams Transport Aide Relationship Specialty Start Date End Date Tashia Barnes MD [address] [place] [address] PCP - General 12/24/18 documented as of this encounter
== END 2024-11-19 10:31 | disposition home or self-care (01) ==
LOC: HO.RESP 10:30
PROVIDERS: PCP Internal Medicine; Visit Provider Hospitalist
DX: J44.89 Other specified chronic obstructive pulmonary disease (principal)
CPT/HCPCS: 94010; 94640; 94727; 94729

== ENCOUNTER → 2024-11-19 10:42 | Outpatient (BNV) | payer MEDICARE, MEDICAID, SELFPAY | PROVIDERS: PCP Internal Medicine; Visit Provider Hospitalist | DX: J44.89 Other specified chronic obstructive pulmonary disease (principal) | CPT/HCPCS: 94060; 94727; 94729 ==

== ENCOUNTER 2024-12-05 08:59 | Outpatient (AMB) | payer MEDICARE, MEDICAID, SELFPAY ==
--- OUTSIDE RECORDS SUMMARY | 2022-03-06 04:45 | XMS_ITS | Continuity of Care Document ---
Author Organization [facility] Address [address] [place] [address] Phone Care Team Providers Care Labor Custodian Name Role Phone [place] OD, Amor Unavailable Unavailable Allergies, Adverse Reactions, [...] Diagnoses Date Provider Providers Copied on Encounter [facility] [address] [place], [place], [id number], [place] tel:[phone] [facility] No Information 3 [place] Amor. [address] [place], [address], [place]. tel:[phone] OFFICE/OUTPA TIENT VISIT, EST [facility] [address] [place], [place], [id number], [place] tel:[phone] [facility] droopy eyelids (chief complaint) Dermatochala sis of right upper eyelidDermat ochalasis of left upper eyelid 2 Raghavendra Hunter. [address] [place], [address], [place]. tel:[phone] Referring Provider: Dale Mabry , [address] [place], [address]. tel:[phone] OFFICE/OUTPA TIENT VISIT, EST [facility] [address] [place], [place], [id number], [place] tel:[phone] [facility] comprehensiv e exam (chief complaint) PresbyopiaAg e-related nuclear cataract, bilateralGla ucoma Suspect bilateralVit reous degeneration , bilateralDer matochalasis of left upper eyelidDermat ochalasis of right upper eyelid Oct-2 2-202 1 [place] Amor. [address] [place] [address], [address], [place]. tel:[phone] Referring Provider: Amor Drummond, [address] [place] [address], [address]. tel:[phone] [facility] [address] [place], [place], [id number], [place] tel:[phone] [facility] comprehensiv e exam (chief complaint) Glaucoma Suspect bilateralAge -related nuclear cataract, bilateralPre sbyopia Oct-0 9-202 0 [place] Amor. [address] [place] [address], [address], [place]. tel:[phone] Referring Provider: Amor Drummond, [address] [place] [address], [address]. tel:[phone] [facility] [address] [place], [place], [id number], [place] tel:[phone] [facility] DFE/OCT (chief complaint) Glaucoma Suspect bilateralAge -related nuclear cataract, bilateralBil ateral vitreous detachment of eyesPresbyop iaDermatocha lasis of right upper eyelidDermat ochalasis of left upper eyelid Oct-0 9-201 9 [place] Amor. [address] [place] [address], [address], [place]. tel:[phone] Referring Provider: Amor Drummond, [address] [place] [address], [address]. tel:[phone] OFFICE/OUTPA TIENT VISIT, EST [facility] [address] [place], [place], [id number], [place] tel:[phone] [facility] VF/HRT/IOP ck (chief complaint) Glaucoma Suspect bilateral Feb-0 6-201 9 [place] Amor. [address] [place] [address], [address], [place]. tel:[phone] Referring Provider: Amor Drummond, [address] [place] [address], [address]. tel:[phone] OFFICE/OUTPA TIENT VISIT, [facility] [address] [place], [place], [id number], [place] tel:[phone] [facility] Comprehensiv e exam (chief complaint) Glaucoma Suspect bilateralAge -related nuclear cataract, bilateralBil ateral vitreous detachment of eyesPresbyop ia Oct-2 2 8 [place] Amor. [address] [place] [address], [address], [place]. tel:[phone] Referring Provider: Amor Drummond, [address] [place] [address], [address]. tel:[phone] Family History Family Member Type Diagnosis Age At Onset No Information Immunizations Vaccine Date Status Comments Pneumo (2 yrs or older)(PPV) administered Source: Other Provider Flu (split) (3 yrs or older) administered Source: Other Provider Payers Payer name Insurance type Covered republican ID Authorismael lambert(s) Medicare MB [id number] Social History Type Description Quantity Date Captured Comments Sex Female Smoking Status No Information Chief Complaint And Reason For Visit No Information Reason For Referral Reason For Referral No Information Plan Of Treatment Date Type Action Status Goal Tobacco cessation counseling completed Future Order: Radiology Order Ze iss Cirrus HD-OCT SPT ([id number]), Sent on: Sent Future Order: Radiology Order Ze iss Visual Field Analyzer SPT ([id number]), Sent on: Sent Future Order: Radiology Order Ze iss Cirrus HD-OCT SPT ([id number]), Ordered on: Ordered Future Order: Radiology Order Ze iss Visual Field Analyzer SPT ([id number]), Ordered on: Ordered Future Order: Radiology Order Ze iss Cirrus HD-OCT SPT ([id number]), Sent on: Sent Future Order: Radiology Order Ze iss Visual Field Analyzer SPT ([id number]), Sent on: Sent History Of Present Illness [...] Instruction Additional Infor josef Impression/Plan Related to [place] tochalasis of right upper eyelid Impression/Plan Related to [place] tochalasis of left upper eyelid Impression/Plan Related to Presb yopia Impression/Plan Related to Age-r elated nuclear cataract, bilateral Impression/Plan Related to Glauc sharon Suspect bilateral Impression/Plan Related to Vitre ous degeneration, bilateral Impression/Plan Related to [place] tochalasis of left upper eyelid Impression/Plan Related to [place] tochalasis of left upper eyelid Impression/Plan Related [...] Related to Presb yopia Impression/Plan Related to [place] tochalasis of right upper eyelid Impression/Plan Related to [place] tochalasis of left upper eyelid Impression/Plan Related [...]
--- OUTSIDE RECORDS SUMMARY | 2022-05-22 05:41 | XMS_ITS | Continuity of Care Document ---
Author Organization [facility] Address [address] [place] [address] [place] [address] Phone Care Team Providers Care Rate And Cost Analyst Name Role Phone Louie VARGAS, Patricia Unavailable [...] Diagnoses Date Provider Providers Copied on Encounter [address] [place], [place], [id number], [place] tel:[phone] [facility] No Information 3 Louie Gomez. [address] [place], [place], [id number] , [place]. tel: [phone] Office/Estab lished Level [address] [place], [id number], [place] tel: [phone] [facility] prolapse (chief complaint) Incomplete uterovaginal prolapseMixed incontinenceHis tory of suburethral sling procedureLichen sclerosusBody mass index (BMI) 40.0-44.9, adult Sep-2 - 2 Jamey Brumfield. [address] [place] [address], [id number] , [place]. tel: [phone] Referring Provider: . No PCP Established , [address] [place] [address], [address]. tel: [phone] [facility] Level [address] [place], [id number], [place] tel: [phone] [facility] prolapse (chief complaint) Urinary tract infection, site not specifiedLichen sclerosusMixed incontinenceHis tory of suburethral sling procedureIncomp lete uterovaginal prolapseBody mass index (BMI) 40.0-44.9, adult Apr- 2 Jamey Brumfield. [address] [place] [address], [id number] , [place]. tel: [phone] Referring Provider: Patricia Palma, Antonietta[address] [place] [address], [address]. tel: [phone] [address] [place], [id number], [place] tel: [phone] [facility] prolapse (chief complaint) prolapse (chief complaint) Mixed incontinenceUri nary tract infection, site not specifiedHistor y of suburethral sling procedureLichen sclerosusIncomp lete uterovaginal prolapseBody mass index (BMI) 40.0-44.9, adult Dec-3 0-202 1 Jamey Brumfield. [address] [place] [address], [id number] , [place]. tel: [phone] Referring Provider: Antonietta Mcdonald[address] [place] [address], [address]. tel: [phone] [address] [place], [id number], [place] tel: [phone] [facility] STAN (chief complaint) Incomplete uterovaginal prolapseUrinary tract infection, site not specifiedLichen sclerosusMixed incontinenceHis tory of suburethral sling procedureBody mass index (BMI) 40.0-44.9, adult 1 Jamey Brumfield. [address] [place] [address], [id number] , [place]. tel: [phone] Referring Provider: Patricia Palma, [address] [place] [address], [address]. tel: [phone] [address] [place], [id number], [place] tel: [phone] [facility] No Information 1 Louie Gomez. [address] [place] [address], [id number] , [place]. tel: [phone] Referring Provider: Patricia Palma [address] [place] [address] [place], [address]. tel: [phone] Office/Estab lished Level [address] [place], [id number], [place] tel: [phone] [facility] Prolapse (URO) (chief complaint) History of suburethral sling procedureIncomp lete uterovaginal prolapseLichen sclerosusMixed incontinenceBod y mass index (BMI) 40.0-44.9, adult 0 1 Louie Gomez. [address] [place] [address], [id number] , [place]. tel: [phone] Referring Provider: Patricia Palma, [address] [place] [address], [address]. tel: [phone] Office/Estab lished Level [address] [place], [id number], [place] tel: [phone] [facility] Prolapse (URO) (chief complaint) History of suburethral sling procedureIncomp lete uterovaginal prolapseLichen sclerosusMixed incontinenceBod y mass index (BMI) 40.0-44.9, adult May-2 1 Louie Gomez. [address] [place], [place], [id number] , [place]. tel: [phone] Referring Provider: Patricia Palma, [address] [place] [address], [address]. tel: [phone] Office/[facility] [address] [place], [id number], [place] tel: [phone] [facility] Prolapse (URO) (chief complaint) Incomplete uterovaginal prolapseHistory of suburethral sling procedureLichen sclerosusMixed incontinenceBod y mass index (BMI) 40.0-44.9, adult Apr- 1 Louie Gomez. [address] [place], [place], [id number] , [place]. tel: [phone] Referring Provider: Marium Clemens MD, [address] [place] [address], [address]. tel:[phone] Family History Family Member Type Diagnosis Age At Onset Problem No family history of Cancer, kidney Mother Problem renal stone Problem No family history of Cancer, prostate Problem No family history of Cancer, bladder Payers Payer name Insurance type Covered republican ID Authoriza tisamm(s) Medicare - [id number] Social History Type Description Quantity Date Captured Comments Alcohol Use Details Unknown Caffeine Use Details Unknown Tobacco Use Status No Information Smoking Status No Information Sex Female Chief Complaint And Reason For Visit No Information Reason For Referral Reason For Referral No Information Plan Of Treatment Date Type Action Status Future Order: Lab Order Urinalys is, Routine ([id number]), Sent on: Sent History Of Present Illness [...] /MAY 29 ya (Dr. Kvng Contreras at [place], [place]). Prior abdominal procedures- cholecystectomy. Feels discomfort [...] mesh sling, anterior colporrhaphy, vulvar biopsyPath: lichen ooeqtzvehi66/22/21: (Brissa) 6 weeks post op. No STAN. [...] MUS/APR 10 ya (Dr. Kvng Contreras at [place], [place]). Prior abdominal procedures- cholecystectomy. Feels discomfort [...] mesh sling, anterior colporrhaphy, vulvar biopsyPath: lichen hdvtyzdbet12/22/21: (Brissa) 6 weeks post op. No STAN. [...] /MAY 10 ya (Dr. Kvng Contreras at [place], [place]). Prior abdominal procedures- cholecystectomy. Feels discomfort [...] mesh sling, anterior colporrhaphy, vulvar biopsyPath: lichen sgwnsofduf73/22/21: (Brissa) 6 weeks post op. No STAN. [...] MUS/MAY 29 ya (Dr. Kvng Contreras at [place], [place]). Prior abdominal procedures- cholecystectomy. Feels discomfort [...] mesh sling, anterior colporrhaphy, vulvar biopsyPath: lichen pdwelcamag34/22/21: (Brissa) 6 weeks post op. No STAN. [...] MUS/APR 10 ya (Dr. Kvng Contreras at [place]). Prior abdominal procedures- cholecystectomy. Feels discomfort [...] MUS/MAY 10 ya (Dr. Kvng Contreras at [place], [place]). Prior abdominal procedures- cholecystectomy. Feels discomfort [...] for years No feeling of incomplete emptying S0Jdmgaes deliveries-3Uterus- NoAbn pap/ abn vag bleeding-0 Sexually active- No, Dyspareunia- NoUsing Estrace 2 times a week at night Prior bladder medications NoPrior UDS- YesPrior pelvic procedures- Hysterectomy several years ago, MUS/APR 10 ya (Dr. Kvng Contreras at [place], [place])Prior abdominal procedures- CholecystectomyFeels discomfort from the sling Voiding Sx:Urgency- YesFrequency- Q3-4hNocturia- [id number]- YesPads per day- Liners s0Syybgunx- yes Total fluid intake- Light Constipation- NoFI- No No gross hematuria, dysuria, fevers, chillsUTIs- NoPMH: Asthma Reviewed and discussed prior medical records today- Dr Clemens's notes, plan for [facility] Functional Status Date Functional Assessmen t No Information Instructions Date Instruction Additional Infor mation No Information Assessments Type Assessment Date No Information Patient Care Teams Name Effective Dates (start - stop) Status Members No Information
--- NOTE | 2024-12-05 09:02 | A.OFFVIS_ITS ---
Vital Signs 12/05/24 09:03 Height 5 ft Weight 213 lb 13.574 oz BMI 41.8 BP 120/78 Blood Pressure Location Lt brachial Position Sitting Pulse 81 Pulse Source Pulse Oximeter Pulse Oximetry (%) 95 Oxygen Delivery Method Room Air Intake Visit Reasons: Asthma Learning Analyst Required: No Accompanied by: Self / Same As Patient Allergies procaine (From Novocain) Allergy (Severe, Verified 12/05/24 09:06) Chest Pain candesartan (From Atacand) Adverse Reaction (Severe, Verified 12/05/24 09:06) Rash chlorthalidone Adverse Reaction (Severe, Verified 12/05/24 09:06) Rash cimetidine Adverse Reaction (Severe, Verified 12/05/24 09:06) Rash cyclobenzaprine (From Flexeril) Adverse Reaction (Severe, Verified 12/05/24 09:06) Chest Pain fentanyl Adverse Reaction (Severe, Verified 12/05/24 09:06) Chest Pain ibuprofen (From Motrin) Adverse Reaction (Severe, Verified 12/05/24 09:06) Rash meperidine (From Demerol) Adverse Reaction (Severe, Verified 12/05/24 09:06) Rash montelukast (From Singulair) Adverse Reaction (Severe, Verified 12/05/24 09:06) Rash nitrofurantoin (From Macrobid) Adverse Reaction (Severe, Verified 12/05/24 09:06) Rash oxycodone Adverse Reaction (Severe, Verified 12/05/24 09:06) Chest Pain Penicillins Adverse Reaction (Severe, Verified 12/05/24 09:06) Rash sulfa drugs Adverse Reaction (Severe, Uncoded 04/28/24 14:43) Rash HPI Comments Details: The patient is a 74 year woman with known history of allergy and asthma in addition to hypogammaglobulinemia who apparently developed a viral syndrome about 3-4 months ago and started developing worsening cough. The cough is moderate severity not improving. She went through few courses of medications with slow improvement of the cough and now back to her baseline. During the process the patient did have a chest x-ray and subsequently a CT scan of the chest which was done at [facility]. I did personally review the CT scan done early 07/09/2023. The patient did have some areas of airspace disease in the left base which is very suspicious for infectious process. She did have a little bit of bronchiolitis treating budding that area as well that is very typical of a postviral bacterial infection. Patient also had evidence of peribronchial cuffing from bronchitis. And also had multiple pulmonary nodules. The largest nodule measured between 5-6 mm in size and was subsolid nature. She had other solid nodules and other ground-glass nodules. In view of all the changes on her CT scan she should have a CT scan repeated in 6 months from her last 1. Will plan to do it at [facility] as the patient's preference. Will follow up at that time. In the meantime since she her breathing is back to her baseline she continued. She did have her IVIG infuse because of the hypogammaglobulinemia. 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 She did have an allergic reaction some type. She will call the immunology Office for premedications prior to the next dose. The patient will continue to follow closely with immunology. And will follow-up sometime in December after her repeat CT scan. If she has any issues prior to that she will call for an earlier assessment. 01/14/2024 the patient is here for a pulmonary follow-up visit. Overall the patient is doing well. She did have a very eventful few months as she developed a severe allergic reaction after receiving IVIG. This was an infusion. She developed a rash over her body and she was very uncomfortable for those 3 months. Now has subsided completely. She is working closely with their electronic science teacher regarding the next step. I believe that they want to try different formulation so therefore she does not have any significant allergic reactions 1 that is provided subcutaneously. Therefore, she will be starting this new therapy soon. I did speak to her regarding premedications. She has discuss that further with her electronic science teacher to make sure that she has an adequate premedications to minimize another allergic reaction. The patient also had a CT scan of the chest which I personally reviewed. I also compared to her previous CT scan. Her pulmonary nodules have subsided completely. Likely that this was related to an infectious process specially since some of the nodules were in the tree in bud distribution there was evidence of bronchitis very specific to the left lower lobe and also less so the right lower lobe. With her immunocompromised state this is likely infectious process. At this point the patient does not need any additional imaging studies. If she does become symptomatic she can always call and we can talk about those symptoms and further evaluation at that point. Will follow-up in a year's time to make sure she is doing well and otherwise she will call for any acute issues. 04/28/2024 the patient is here for pulmonary follow-up visit. Overall doing well. Although recently she did have a bout of a respiratory illness. She went to an urgent care initially she was given some prednisone and some cough medication for a viral syndrome. Then 2 weeks later she showed up again with productive cough moderate severity shortness of breath and she was diagnosed with bronchopneumonia. She had an x-ray apparently was abnormal. She was given 2 antibiotics. Now she is feeling back to her baseline. In the meantime she has been getting the subcutaneous IgG infusions with immunology. She is tolerating them well and has been affecting beneficial. The patient will go ahead and have a repeat x-ray to make sure that everything is clear from the pneumonia standpoint. Her lung exam is reassuring. She does continue with her inhaler therapy as prescribed with good results. Will plan to follow-up in a year's time. If her x-ray is abnormal let her know. 09/04/2024 the patient is here for a pulmonary follow-up visit. Since we last spoke she was exposed to a sick contact and started developing worsening respiratory complaints. Initially she was given a short course of prednisone and was not helpful. Then she followed up with her primary care doctor and was diagnosed with pneumonia based on a chest x-ray. I do not have that x-ray. She was having significant chest congestion cough and shortness of breath. She was given some antibiotics and now she is starting to feel better. She is not completely improve. She has been using the Advair generic with partial improvement. Will go ahead and request Incruse to maximize her respiratory therapy. The patient also needs a nebulizer will provide her 1 in the office. She does have a history of cardiac arrhythmias so will just give her Xopenex to minimize cardiac irritability. The patient will return in 3-4 months with PFTs to assess her progress. In the meantime if she develops any worsening symptoms she can always call for further recommendations. 12/05/2024 the patient is here for pulmonary follow-up visit. The patient overall has been doing well although recently she started developing a cold. Typically called lead to asthma exacerbations and she usually needs prednisone. I will send some to the pharmacy at this time but she does not need to take it at this time particularly. Only she worsens. She continues use the Wixela and also the Incruse with good effect. She did undergo pulmonary function studies fairly recently we did review them. No evidence of any obstructive nor restrictive ventilatory defects. Overall good lung mechanics which is reassuring. The patient did get diagnosed with atrial fibrillation and she was placed on Eliquis. She is not working with her sleep. She does have underlying sleep apnea needs to get situated with PAP therapy. She is going to follow-up with the sleep clinic sometime in February for now she can practice positional therapy. She is going to her vaccines. The only vaccines that she needs to see her RSV, RSV. She is going to follow-up with [facility] to see she can get it through her insurance. She will follow-up in a year's time if any issues arise she can always call for an earlier assessment. [facility] Medical History (Updated 09/04/24 @ 14:45 by Naman Stevens MD) Asthma-COPD overlap syndrome Arrhythmia PIETER (obstructive sleep apnea) Pulmonary nodules Hiatal hernia Hypogammaglobulinemia Asthma Social History Patient Tobacco Use Status: Never used Tobacco Review of Systems Const Denies fever(s) ENT Reports nasal congestion and Reports nasal discharge Card Denies chest pain Resp Reports cough and Reports wheezing GI Reports dyspepsia and Reports heartburn Musc Reports no additional complaints Skin/Breast Denies rash Endo Reports no additional complaints Zane/Lymph Reports no additional complaints Aller/Immun Reports wheezing Physical Exam Vital Signs: Last Vital Signs Pulse 81 12/05/24 09:03 BP 120/78 12/05/24 09:03 Pulse Ox 95 12/05/24 09:03 Oxygen Delivery Method Room Air 12/05/24 09:03 BMI result Body Mass Index 41.8 Const General: comfortable HEENT Head: Yes normocephalic Neck Neck: Yes supple Chest Chest palpation & inspection: normal inspection of the chest Resp Effort & Inspection: normal respiratory effort Auscultation: diminished lung sounds Cardio Rhythm: abnormal rhythm Heart sounds: S1 normal heart sound present and S2 normal heart sound present GI Palpation (GI): Soft to palpation Skin General skin exam: no rashes or lesions noted Extrem General: Yes no clubbing, cyanosis or edema Assessment & Plan Assessment & Plan (1) Asthma: Code(s): J45.909 - Unspecified asthma, uncomplicated Category: Medical Qualifiers: Asthma complication type: uncomplicated Asthma persistence: persistent Asthma severity: moderate Qualified Code(s): J45.40 - Moderate persistent asthma, uncomplicated (2) Hypogammaglobulinemia: Code(s): D80.1 - Nonfamilial hypogammaglobulinemia Category: Medical (3) Hiatal hernia: Code(s): K44.9 - Diaphragmatic hernia without obstruction or gangrene Category: Medical (4) Pulmonary nodules: Code(s): R91.8 - Other nonspecific abnormal finding of lung field Category: Medical (5) PIETER (obstructive sleep apnea): Code(s): G47.33 - Obstructive sleep apnea (adult) (pediatric) Category: Medical (6) Arrhythmia: Code(s): I49.9 - Cardiac arrhythmia, unspecified Category: Medical Qualifiers: Arrhythmia type: unspecified cardiac arrhythmia Qualified Code(s): I49.9 - Cardiac arrhythmia, unspecified (7) Asthma-COPD overlap syndrome: Code(s): J44.89 - Other specified chronic obstructive pulmonary disease Category: Medical Plan continue Advair generic 500/50 continue incruse JESSY as needed SC IgG therapy, premedicate with tylenol/zyrtec Sleep clinic appointment coming up. needs nebulizer with xopenex reflux diet f/u 1 yr Medications: New doxycycline hyclate 100 mg PO BID 20 caps 0RF 10 days prednisone PO daily; Take 2 tabs daily x 5 days, then 1 tablet daily x 5 days 15 tabs 0RF 10 days Coding Level of Care Code Est Pt Level 4 (09890) Diagnoses Moderate persistent asthma without complication J45.40 Asthma complication type: uncomplicated Asthma persistence: persistent Asthma severity: moderate Hypogammaglobulinemia D80.1 Hiatal hernia K44.9 Pulmonary nodules R91.8 PIETER (obstructive sleep apnea) G47.33 Cardiac arrhythmia, unspecified cardiac arrhythmia type I49.9 Arrhythmia type: unspecified cardiac arrhythmia Asthma-COPD overlap syndrome J44.89 Time Spent (min) 16
[2024-12-05 09:03] VITALS: BP 120/78; PULSE 81; O2SAT 95; BMI 41.8
--- OUTSIDE RECORDS SUMMARY | 2024-12-05 09:40 | XMS_ITS | Encounter Summary ---
Author Organization [facility] Address [address] [place] [address] Phone Care Team Providers Care Sausage Stringer Name Role Phone Tashia Barnes MD Primary Care Provider [phone] Encounter Details Date Type Department Care Team (Late st Contact Info) Description 03/14/2024 Documentation Only [facility] [address] [place] [address] Corinne StevensCHECK, [place] [address] [place] [address] Social History Tobacco Use Types [...] Visit [facility] [address] [place] [address] Fabien Lockwood MD [address] [place] [address] documented as of this encounter Visit Diagnoses Not on filedocumented in this encounter Care Teams Sausage Stringer Relationship Specialty Start Date End Date Tashia Barnes MD [address] [facility], [address] [place] [id number] PCP - General 12/24/18 documented as of this encounter
--- OUTSIDE RECORDS SUMMARY | 2024-12-05 09:40 | XMS_ITS | Clinical Summary ---
Author Organization [facility] [place], Address [address] [place] [address] [place] [address] Phone Care Team Providers Care Athletics Director Name Role Phone Tashia Barnes MD Primary Care Provider [phone] Allergies Active Allergy Reactions Criticality Noted Date [...] Refill [facility], [address] [place] [address] Fabien Lockwood MD 09/24/2024 5:40 PM EDT Office Visit [facility], [address] [place] [address] Fabien Lockwood MD Stage 3b chronic kidney [...] Visit [facility], [address] [place] [address] Fabien Lockwood MD [address] [facility] [facility] [place] [phone] Health Maintenance Due Date Last Done Comments [...] topic Insurance Medicare Medicaid [place] Care Teams Athletics Director Relationship Specialty Start Date End Date Tashia Barnes MD [address] [place] [address], [address] [place] [address] PCP - General 12/24/18
--- OUTSIDE RECORDS SUMMARY | 2024-12-05 09:40 | XMS_ITS | Encounter Summary ---
Author Organization [facility] [place], Address [address] [place] [address] Phone Care Team Providers Care Glue Jointer Operator Name Role Phone Tashia Barnes MD Primary Care Provider [phone] Encounter Details Date Type Department Care Team (Late st Contact Info) Description 05/24/2020 Office Communication [facility], [address] [place] [phone] Trinh Connelly PA Social History Tobacco Use [...] Visit [facility], [address] [place] [address] Fabien Lockwood MD [address] [place] [address] [place] [address] documented as of this encounter Visit Diagnoses Not on filedocumented in this encounter Care Teams Glue Jointer Operator Relationship Specialty Start Date End Date Tashia Barnes MD [address] [place] [address] PCP - General 12/24/18 documented as of this encounter
--- OUTSIDE RECORDS SUMMARY | 2024-12-05 09:40 | XMS_ITS | Encounter Summary ---
Author Organization [facility] Address [address] [place] [address] Care Team Providers Care State Tested Nursing Assistant Name Role Phone Darlyn Barnes MD Primary Care Provider [phone] Encounter Details Date Type Department Care Team (Late st Contact Info) Description 06/26/2016 Scanned Document [address] [place] [phone] Provider, Generic Social History Tobacco Use [...] on filedocumented in this encounter Care Teams State Tested Nursing Assistant Relationship Specialty Start Date End Date Darlyn Barnes MD [address] [place] [address] PCP - General 06/26/16 documented as of this encounter
--- OUTSIDE RECORDS SUMMARY | 2024-12-05 09:40 | XMS_ITS | Encounter Summary ---
Author Organization [facility] Address [address] [place] [address] Phone Care Team Providers Care Healthcare Science Specialist Name Role Phone Tashia Barnes MD Primary Care Provider [phone] Encounter Details Date Type Department Care Team (Late st Contact Info) Description 06/11/2021 Documentation Only [facility] [address] [place] [address] Trinh Connelly PA Social History Tobacco Use [...] Visit [facility] [address] [place] [phone] Fabien Lockwood MD [address] [place] [address] [place] [phone] documented as of this encounter Visit Diagnoses Not on filedocumented in this encounter Care Teams Healthcare Science Specialist Relationship Specialty Start Date End Date Tashia Barnes MD [address] [place] [address] [place] [address] PCP - General 12/24/18 documented as of this encounter
--- OUTSIDE RECORDS SUMMARY | 2024-12-05 09:41 | XMS_ITS | Encounter Summary ---
Author Organization [facility] Address [address] [place] [address] Phone Care Team Providers Care Image Archivist Name Role Phone Tashia Barnes MD Primary Care Provider [phone] Encounter Details Date Type Department Care Team (Late st Contact Info) Description 06/27/2022 Documentation Only [facility] [address] [place] [address] Fabien Lockwood MD [address] [place] [address] [place] [address] Social History Tobacco Use Types [...] Office Visit [facility] [address] [place] [address] Fabien Lockwood MD [address] [place] [address] [place] [address] documented as of this encounter Visit Diagnoses Not on filedocumented in this encounter Care Teams Image Archivist Relationship Specialty Start Date End Date Tashia Barnes MD [address] [facility], [facility] [address] [place] [address] PCP - General 12/24/18 documented as of this encounter
--- OUTSIDE RECORDS SUMMARY | 2024-12-05 09:41 | XMS_ITS | Encounter Summary ---
Author Organization [facility] Address [address] [place] [address] Care Team Providers Care Aircraft Launch And Recovery Technician Name Role Phone Darlyn Barnes MD Primary Care Provider [phone] Reason for Visit * Reason Onset Date Comments Disc returned from PACS 10/06/2016 Encounter Details Date Type Department Care Team (Late st Contact Info) Description 10/06/2016 Telephone [facility]ic Surgery [place] [address] [address] Jonathan Howell MD [address] [address] Disc returned from PACS Social History Tobacco [...] 10/06/2016 12:21 PM EDT Rcv'd disc from [facility] multiple studies returned from PACS mailed to pt documented in this encounter Plan of Treatment Not on file documented as of this encounter Visit Diagnoses Not on filedocumented in this encounter Care Teams Aircraft Launch And Recovery Technician Relationship Specialty Start Date End Date Darlyn Barnes MD [address] [place] [address] PCP - General 06/26/16 documented as of this encounter
--- OUTSIDE RECORDS SUMMARY | 2024-12-05 09:41 | XMS_ITS | Clinical Summary ---
Author Organization [facility] Address [address] [place] [address] Care Team Providers Care Body Shop Manager Name Role Phone Darlyn Barnes MD Primary Care Provider [phone] Allergies Active Allergy Reactions Criticality Noted Date [...] AT BEDTIME,X90 DAYS 3 7 Active PEG 6654-[id number]-NaCl -NaSulf (PEG-3350/ELECTROLY JANET) 236 g Recon Soln [...] Vaccine (1 of 2) 2000 RSV Vaccine 50 years and old er and Patients (1 - Risk 60-74 years 1-dose series) 2010 DXA Bone Density (Females,Ag es 65 and older) 07/13/2015 Influenza Vaccine 09/19/2024 COVID-19 Vaccine (1 - 2023-2 5 season) 2024 Hepatitis B Vaccines Aged Out No long er eligible based on patient's age to complete this topic Insurance MEDICARE PART A & B Care Teams Body Shop Manager Relationship Specialty Start Date End Date Darlyn Barnes MD [address] [place] [address] PCP - General 06/26/16
--- OUTSIDE RECORDS SUMMARY | 2024-12-05 09:41 | XMS_ITS | Encounter Summary ---
Author Organization [facility] Address [address] [place] [address] Phone Care Team Providers Care Director Writing Name Role Phone Tashia Barnes MD Primary Care Provider [phone] Reason for Visit * Reason Onset Date Comments Med Refill 07/08/2022 Encounter Details Date Type Department Care Team (Late st Contact Info) Description 07/08/2022 Refill [facility] [address] [place] [address] Fabien Lockwood MD [address] [facility] [place] [address] Social History Tobacco Use Types [...] Office Visit [facility] [address] [place] [address] Fabien Lockwood MD [address] [facility] [place] [address] documented as of this encounter Visit Diagnoses Not on filedocumented in this encounter Care Teams Director Writing Relationship Specialty Start Date End Date Tashia Barnes MD [address] [place] [address] PCP - General 12/24/18 documented as of this encounter
--- OUTSIDE RECORDS SUMMARY | 2024-12-05 09:41 | XMS_ITS | Encounter Summary ---
Author Organization [facility] Address [address] [place] [address] Phone Care Team Providers Care Welder Tack Name Role Phone Tashia Barnes MD Primary Care Provider [phone] Reason for Visit * Reason Onset Date Comments Med Refill 11/03/2022 Encounter Details Date Type Department Care Team (Late st Contact Info) Description 11/03/2022 Refill [facility] [address] [place] [address] Fabien Lockwood MD [address] [facility] [place] [address] Social History Tobacco Use Types [...] Office Visit [facility] [address] [place] [address] Fabien Lockwood MD [address] [facility] [place] [address] documented as of this encounter Visit Diagnoses Not on filedocumented in this encounter Care Teams Welder Tack Relationship Specialty Start Date End Date Tashia Barnes MD [address] [place] [address] PCP - General 12/24/18 documented as of this encounter
--- OUTSIDE RECORDS SUMMARY | 2024-12-05 09:41 | XMS_ITS | Encounter Summary ---
Author Organization [facility] Address [address] [place] [address] Phone Care Team Providers Care Wood Caulker Name Role Phone Tashia Barnes MD Primary Care Provider [phone] Encounter Details Date Type Department Care Team (Late st Contact Info) Description 05/17/2022 Documentation Only [facility] [address] [place] [address] Fabien Lockwood MD [address] [place] [address] Dr. [place]ilaria [place] [address] Social History Tobacco Use Types [...] Office Visit [facility] [address] [place] [address] Fabien Lockwood MD [address] [place] [address] [place] [address] documented as of this encounter Visit Diagnoses Not on filedocumented in this encounter Care Teams Wood Caulker Relationship Specialty Start Date End Date Tashia Barnes MD [address] [facility], [facility] [address] [place] [address] PCP - General 12/24/18 documented as of this encounter
--- OUTSIDE RECORDS SUMMARY | 2024-12-05 09:41 | XMS_ITS | Encounter Summary ---
Author Organization [facility] Address [address] [place] [address] Care Team Providers Care Airline Dispatcher Name Role Phone Darlyn Barnes MD Primary Care Provider [phone] Reason for Visit * Reason Onset Date Comments Disc Sent To PACS 10/02/2016 Encounter Details Date Type Department Care Team ([facility] st Contact Info) Description 10/02/2016 Telephone [facility] [place] [address] [address] Jonathan Howell MD [address] [address] Disc Sent To PACS Social History Tobacco [...] Miscellaneous Notes * Telephone Encounter - Emmy Carols - 10/02/2016 12:06 PM EDT Rcv'd disc from [facility] Imaging multiple studies sent to PACS documented in this encounter Plan of Treatment Not on file documented as of this encounter Visit Diagnoses Not on filedocumented in this encounter Care Teams Airline Dispatcher Relationship Specialty Start Date End Date Darlyn Barnes MD [address] [place] [address] PCP - General 06/26/16 documented as of this encounter
--- OUTSIDE RECORDS SUMMARY | 2024-12-05 09:41 | XMS_ITS | Clinical Summary ---
Author Organization [facility] Address [address] [place] [address] Phone Care Team Providers Care Project Development Director Name Role Phone Darlyn Barnes MD Primary Care Provider [phone] Encounters Date Type Department Care Team Description 10/13/2024 8:04 AM EDT - 10/13/2024 11:59 PM EDT Hospital Encounter [facility] at [address] [address] Encounter for screening mammogram for breast cancer Discharge Disposition: Home or Self Care from [...] RSV Immunization Adult Patients (1 - Risk 50-74 years 1-dose series) 2000 Zoster Vaccines (1 of 2) 09/29/2014 08/04/2014 [...] Encounter for screening mammogram for breast cancer from Last 3 Months Results * MG [...] year. [facility]amm[facility] location[facility] at [address], [address] -------- FINAL REPORT -------- Dictated By: Ayaz Steele Dictated Date: 10/13/2024 09:35 ET Assigned Physician: Ayaz Steele Reviewed and Electronically Signed By: Ayaz Steele Signed Date: 10/13/2024 17:23 ET Workstation ID: [id number] Transcribed By: Self Edit Transcribed Date: 10/13/2024 09:36 ET Narrative 10/13/2024 5:23 PM EDT EXAM: SCREENING MAMMOGRAPHY, BILATERAL HISTORY: SCREENING. Excision left breast. COMPARISON: 10/11/23, 08/26/22, 08/23/21, 12/14/20, 04/30/20, 04/15/20 TECHNIQUE: Synthesized CC and MLO projections of each breast. Tomosynthesis of each breast in the CC and MLO projections. ADDITIONAL IMAGING: None Computer-aided detection was employed with the [employer] 3-D. TISSUE DENSITY: There are scattered areas [...] None Computer-aided detection was employed with the [employer] AI 3-D. TISSUE DENSITY: There are scattered [...] year. [facility]amm[facility] location[facility] at [address], [address] -------- FINAL REPORT -------- Dictated By: Ayaz Steele Dictated Date: 10/13/2024 09:35 ET Assigned Physician: Ayaz Steele Reviewed and Electronically Signed By: Ayaz Steele Signed Date: 10/13/2024 17:23 ET Workstation ID: [id number] Transcribed By: Self Edit Transcribed Date: 10/13/2024 09:36 ET us Self Referral Sppl IMG BI PROCEDURES Final Resul t from Last 3 Months Insurance MEDICARE MEDICAID - [place] Care Teams Project Development Director Relationship Specialty Start Date End Date Darlyn Barnes MD [address] [place] [address] PCP - General Internal Medicine 07/23/24
== END 2024-12-05 09:20 | disposition home or self-care (01) ==
LOC: HO.HPS 09:00
PROVIDERS: PCP Internal Medicine; Visit Provider Hospitalist
DX: J45.40 Moderate persistent asthma, uncomplicated (principal); D80.1 Nonfamilial hypogammaglobulinemia; K44.9 Diaphragmatic hernia without obstruction or gangrene; R91.8 Other nonspecific abnormal finding of lung field; G47.33 Obstructive sleep apnea (adult) (pediatric); I49.9 Cardiac arrhythmia, unspecified; J44.89 Other specified chronic obstructive pulmonary disease
CPT/HCPCS: 99214

== ENCOUNTER → 2024-12-05 08:59 | Outpatient (BNVA) | payer MEDICARE, MEDICAID, SELFPAY | PROVIDERS: PCP Internal Medicine; Visit Provider Hospitalist | DX: J44.89 Other specified chronic obstructive pulmonary disease (principal); I49.9 Cardiac arrhythmia, unspecified; G47.33 Obstructive sleep apnea (adult) (pediatric); R91.8 Other nonspecific abnormal finding of lung field; K44.9 Diaphragmatic hernia without obstruction or gangrene; D80.1 Nonfamilial hypogammaglobulinemia; Z87.09 Personal history of other diseases of the respiratory system | CPT/HCPCS: 99212 ==

== ENCOUNTER 2025-01-12 12:41 | Day surgery (SDC) | payer MEDICARE, MEDICAID, SELFPAY ==
--- OUTSIDE RECORDS SUMMARY | 2022-03-06 03:45 | XMS_ITS | Continuity of Care Document ---
Author Organization [facility] Address [address] [place] [address] Phone Care Team Providers Care Heel Dipper Name Role Phone [place] OD, Amor Unavailable Unavailable Allergies, Adverse Reactions, Alerts Substance Reaction Status Criticality CYCLOBENZAPRINE HCL Throat closure Active No Inf ormation ERYTHROMYCIN LACTOBIONATE Rash Active No Information ibuprofen Anaphylaxis Active No Information PENICILLIN Rash Active No Information Sulfa (Sulfonamide Antibiotics) Rash Active No Information CIPROFLOXACIN HCL Rash Active No Informa tion ciprofloxacin Rash Active No Information PROCAINE HCL Anaphylaxis Active No Information MEPERIDINE HCL Severe Vomiting Active No Informa tion oxycodone Severe Chest Pains Active No Inform ation Medications Medication Instructions Dosage Effective Dates (start - stop) Status Comments AirDuo Digihaler 232 mcg-14 mcg/actuation breath act,powder sensor inhale 1 puff by inhalation route 2 times every day approximately 12 hours apart at the same times each day - Active Vitamin B-12 1,000 mcg tablet as needed - Active sodium bicarbonate 650 mg tablet as needed - Active Nexium 20 mg capsule,delayed release take 1 capsule by oral route every day - Active Trelegy Ellipta 100 mcg-62.5 mcg-25 mcg powder for inhalation inhale 1 puff by inhalation route every day at the same time each day 1.00 puff - Active Vitamin D3 1,000 unit capsule - Active folic acid 20 mg capsule - Active Lasix 20 mg tablet take 1 tablet by ora l route every day 20 MG - Active lisinopril 5 mg tablet take 1 tablet by oral route every day 5 MG - Active simvastatin 20 mg tablet take 1 tablet by oral route every day in the evening 20 MG - Active ProAir HFA 90 mcg/actuation aerosol inhaler inhale 2 puff by inhalation route every 4 - 6 hours as needed - Active Procedures Procedure Date OFFICE/OUTPATIENT VISIT, EST EYE PHOTOGRAPHY OFFICE/OUTPATIENT VISIT, EST VISUAL FIELD EXAMINATION(S) HRT Prof Comp HRT Tech Comp EYE EXAM & TREATMENT VISUAL FIELD EXAMINATION(S) HRT Prof Comp HRT Tech Comp REFRACTION EYE EXAM & TREATMENT HRT REFRACTION OFFICE/OUTPATIENT VISIT, EST HRT ECHO EXAM OF EYE, THICKNESS VISUAL FIELD EXAMINATION(S) REFRACTION OCT OFFICE/OUTPATIENT VISIT, NEW Advance Directives Directive Yes / No Effective Date File Name No Information Encounters Encounter Description Practice Location Reason(s) For Visit Diagnoses Date Provider Providers Copied on Encounter [facility] [address] [place], [place], [id number], [place] tel:[phone] [facility] No Information 3 Etowah Amor. [address] [place], [address], [place]. tel:[phone] OFFICE/OUTPA TIENT VISIT, EST [facility] [address] [place], [place], [id number], [place] tel:[phone] [facility] droopy eyelids (chief complaint) Dermatochala sis of right upper eyelidDermat ochalasis of left upper eyelid 2 Raghavendra Hunter. [address] [place], [address], [place]. tel:[phone] Referring Provider: Dale Mabry , [address] [place], [address]. tel:[phone] OFFICE/OUTPA TIENT VISIT, EST [facility] [address] [place], [place], [id number], [place] tel:[phone] [facility] comprehensiv e exam (chief complaint) PresbyopiaAg e-related nuclear cataract, bilateralGla ucoma Suspect bilateralVit reous degeneration , bilateralDer matochalasis of left upper eyelidDermat ochalasis of right upper eyelid Oct-2 2-202 1 Etowah Amor. [address] [place] [address], [address], [place]. tel:[phone] Referring Provider: Amor Drummond, [address] [place] [address], [address]. tel:[phone] [facility] [address] [place], [place], [id number], [place] tel:[phone] [facility] comprehensiv e exam (chief complaint) Glaucoma Suspect bilateralAge -related nuclear cataract, bilateralPre sbyopia Oct-0 9-202 0 Et[place]ah Amor. [address] [place] [address], [address], [place]. tel:[phone] Referring Provider: Amor Drummond, [address] [place] [address], [address]. tel:[phone] [facility] [address] [place], [place], [id number], [place] tel:[phone] [facility] DFE/OCT (chief complaint) Glaucoma Suspect bilateralAge -related nuclear cataract, bilateralBil ateral vitreous detachment of eyesPresbyop iaDermatocha lasis of right upper eyelidDermat ochalasis of left upper eyelid Oct-0 9-201 9 Et[place]ah Amor. [address] [place] [address], [address], [place]. tel:[phone] Referring Provider: Amor Drummond, [address] [place] [address], [address]. tel:[phone] OFFICE/OUTPA TIENT VISIT, EST [facility] [address] [place], [place], [id number], [place] tel:[phone] [facility] VF/HRT/IOP ck (chief complaint) Glaucoma Suspect bilateral Feb-0 6-201 9 [place]ah Amor. [address] [place] [address], [address], [place]. tel:[phone] Referring Provider: Amor Drummond, [address] [place] [address], [address]. tel:[phone] OFFICE/OUTPA TIENT VISIT, [facility] [address] [place], [place], [id number], [place] tel:[phone] [facility] Comprehensiv e exam (chief complaint) Glaucoma Suspect bilateralAge -related nuclear cataract, bilateralBil ateral vitreous detachment of eyesPresbyop ia Oct-2 2 8 [place]ah Amor. [address] [place] [address], [address], [place]. tel:[phone] Referring Provider: Amor Drummond, [address] [place] [address], [address]. tel:[phone] Family History Family Member Type Diagnosis Age At Onset No Information Immunizations Vaccine Date Status Comments Pneumo (2 yrs or older)(PPV) administered Source: Other Provider Flu (split) (3 yrs or older) administered Source: Other Provider Payers Payer name Insurance type Covered constitution party ID Authorismael lambert(s) Medicare MB [id number] Social History Type Description Quantity Date Captured Comments Sex Female Smoking Status No Information Chief Complaint And Reason For Visit No Information Reason For Referral Reason For Referral No Information Plan Of Treatment Date Type Action Status Goal Tobacco cessation counseling completed Future Order: Radiology Order Ze iss Cirrus HD-OCT SPT ([id number]), Sent on: Sent Future Order: Radiology Order Ze iss Visual Field Analyzer SPT ([id number]), Sent on: Sent Future Order: Radiology Order Ze iss Cirrus HD-OCT SPT ([id number]), Ordered on: Ordered Future Order: Radiology Order Ze iss Visual Field Analyzer SPT ([id number]), Ordered on: Ordered Future Order: Radiology Order Ze iss Cirrus HD-OCT SPT ([id number]), Sent on: Sent Future Order: Radiology Order Ze iss Visual Field Analyzer SPT ([id number]), Sent on: Sent History Of Present Illness Encounter Date Complaint History Of Prese nt Illness droopy eyelids The 70 year old female presents for evaluation of droopy eyelids in the BUL. Pt states she has notice her lids drooping for several months. She is having to hold her eyes open more to be able to see clearly. She states when she reads and watched TV her eyes feel heavy and tired at times. She finds herself having to turn her head more to be able to see out her periphery while driving. She denies eye pain or irritation.She dose not take any blood thinners comprehensive exam The 70 year o ld female presents for comprehensive exam OU. Hx GS OU, NSC OU. VA stable per pt. Pt happy with current specs. Denies glare. Denies new floaters/flashes. Denies HAs. Denies itching/tearing/burning. Pt does not use any gtts. Glare OD 20/50 OS 20/100 comprehensive exam The 69 year o ld female presents for evaluation of comprehensive exam in the right eye and left eye. Pt states her vision has decreased over the last year at [facility], states DVA is stable. Pt suspects her reading Rx is not strong enough, states even looking at her phone is blurry. Pt states she has excessive tearing the AM everyday, does not treat at this time. Pt denies f/f, MARTINEZ's, nausea, pain, itching and irritation. DFE/OCT The 68 year old female presents for evaluation of DFE/OCT in the right eye and left eye. Glaucoma Suspect OU. Patient states that she has been doing well. Patient states that her VA is stable OU. Patient denies eye pain, flashes, floaters and headaches. VF/HRT/IOP ck The 67 year old female presents for evaluation of VF/HRT/IOP/Pachy in the right eye and left eye. Pt states vision OU seems about the same as last visit, no real changes noted at this time. Pt currently using Latanoprost OU qhs as prescribed. Pt denies any eye pain, discomfort or light sensitivity. No flashes/floaters. Comprehensive exam The 67 year o ld female presents for evaluation of Comprehensive exam in the right eye and left eye. ELIAZAR 1 yr ago. Pt here for routine exam and MRx. Pt states she has difficulty with NV. States Rx are Trifocals and she no longer needs due to not working on a computer. [place] and was being treated for Glaucoma. Pt last used Latanoprost QHS OU 1 mo ago. Pt has a severe allergy to proparacaine and pressure checked with just Fluress strip only. Pt has a hx of HVF/HRT/OCT's. Denies floaters, flashes, headaches, eye pain, or glare. C/o Tearing intermittently x 2 mo. Denies itching, burning, discharge, or dryness OU. MRx done today and policy signed. 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 Impression/Plan Related to [place] tochalasis of left upper eyelid Impression/Plan Related to Presb yopia Impression/Plan Related to Age-r elated nuclear cataract, bilateral Impression/Plan Related to Glauc sharon Suspect bilateral Impression/Plan Related to Vitre ous degeneration, bilateral Impression/Plan Related to [place] tochalasis of left upper eyelid Impression/Plan Related to [place] tochalasis of left upper eyelid Impression/Plan Related to Glauc sharon Suspect bilateral Impression/Plan Related to Age-r elated nuclear cataract, bilateral Impression/Plan Related to Presb yopia NAD lid eval with AO 6 months IOP/HVF with TP Related to Dermatochalasis of left upper eyelid Impression/Plan Related to Age-r elated nuclear cataract, bilateral Impression/Plan Related to Bilat eral vitreous detachment of eyes Impression/Plan Related to Presb yopia Impression/Plan Related to [place] tochalasis of right upper eyelid Impression/Plan Related to [place] tochalasis of left upper eyelid Impression/Plan Related to Glauc sharon Suspect bilateral Impression/Plan Related to Glauc sharon Suspect bilateral Impression/Plan Related to Glauc sharon Suspect bilateral Impression/Plan Related to Age-r elated nuclear cataract, bilateral Impression/Plan Related to Bilat eral vitreous detachment of eyes Impression/Plan Related to Presb yopia Assessments Type Assessment Date No Information Patient Care Teams Name Effective Dates (start - stop) Status Members No Information
--- OUTSIDE RECORDS SUMMARY | 2022-05-22 04:41 | XMS_ITS | Continuity of Care Document ---
Author Organization [facility] Address [address] [place] [address] [place] [address] Phone Care Team Providers Care Death Claim Examiner Name Role Phone Louie VARGAS, Patricia Unavailable [...] Diagnoses Date Provider Providers Copied on Encounter [address] [place], [id number], [place] tel:[phone] [facility] No Information 3 Louie Gomez. [address] [place], [place], [id number] , [place]. tel: [phone] Office/Estab lished Level [address] [place], [id number], [place] tel: [phone] [facility] prolapse (chief complaint) Incomplete uterovaginal prolapseMixed incontinenceHis tory of suburethral sling procedureLichen sclerosusBody mass index (BMI) 40.0-44.9, adult Sep-2 - 2 Jamey Brumfield. [address] [place] [address], [id number] , [place]. tel: [phone] Referring Provider: . No PCP Established , [address] [place] [address], [id number]. tel: [phone] [facility] Level [address] [place], [id number], [place] tel: [phone] [facility] prolapse (chief complaint) Urinary tract infection, site not specifiedLichen sclerosusMixed incontinenceHis tory of suburethral sling procedureIncomp lete uterovaginal prolapseBody mass index (BMI) 40.0-44.9, adult Apr- 2 Jamey Brumfield. [address] [place] [address], [id number] , [place]. tel: [phone] Referring Provider: Patricia Palma, Antonietta[address] [place] [address], [address]. tel: [phone] [address] [place], [id number], [place] tel: [phone] [facility] prolapse (chief complaint) prolapse (chief complaint) Mixed incontinenceUri nary tract infection, site not specifiedHistor y of suburethral sling procedureLichen sclerosusIncomp lete uterovaginal prolapseBody mass index (BMI) 40.0-44.9, adult Dec-3 0-202 1 Jamey Brumfield. [address] [place] [address], [id number] , [place]. tel: [phone] Referring Provider: Antonietta Mcdonald[address] [place] [address], [address]. tel: [phone] [address] [place], [id number], [place] tel: [phone] [facility] STAN (chief complaint) Incomplete uterovaginal prolapseUrinary tract infection, site not specifiedLichen sclerosusMixed incontinenceHis tory of suburethral sling procedureBody mass index (BMI) 40.0-44.9, adult 1 Jamey Brumfield. [address] [place] [address], [id number] , [place]. tel: [phone] Referring Provider: Patricia Palma, [address] [place] [address], [address]. tel: [phone] [address] [place], [id number], [place] tel: [phone] [facility] No Information 1 Louie Gomez. [address] [place] [address], [id number] , [place]. tel: [phone] Referring Provider: Patricia Palma [address] [place] [address] [place], [address]. tel: [phone] Office/Estab lished Level [address] [place], [id number], [place] tel: [phone] [facility] Prolapse (URO) (chief complaint) History of suburethral sling procedureIncomp lete uterovaginal prolapseLichen sclerosusMixed incontinenceBod y mass index (BMI) 40.0-44.9, adult 0 1 Louie Gomez. [address] [place] [address], [id number] , [place]. tel: [phone] Referring Provider: Patricia Palma, [address] [place] [address], [address]. tel: [phone] Office/Estab lished Level [address] [place], [id number], [place] tel: [phone] [facility] Prolapse (URO) (chief complaint) History of suburethral sling procedureIncomp lete uterovaginal prolapseLichen sclerosusMixed incontinenceBod y mass index (BMI) 40.0-44.9, adult May-2 1 Louie Gomez. [address], [place], [id number] , [place]. tel: [phone] Referring Provider: Patricia Palma, [address] [place] [address], [address]. tel: [phone] Office/[facility] [address] [place], [id number], [place] tel: [phone] [facility] Prolapse (URO) (chief complaint) Incomplete uterovaginal prolapseHistory of suburethral sling procedureLichen sclerosusMixed incontinenceBod y mass index (BMI) 40.0-44.9, adult Apr- 1 Louie Gomez. [address], [place], [id number] , [place]. tel: [phone] Referring Provider: Marium Clemens MD, [address] [place] [address], [address]. tel:[phone] Family History Family Member Type Diagnosis Age At Onset Problem No family history of Cancer, bladder Problem No family history of Cancer, prostate Mother Problem renal stone Problem No family history of Cancer, kidney Payers Payer name Insurance type Covered libertarian ID Authoriza tisamm(s) Medicare - [id number] Social History Type Description Quantity Date Captured Comments Alcohol Use Details Unknown Caffeine Use Details Unknown Tobacco Use Status No Information Smoking Status No Information Sex Female Chief Complaint And Reason For Visit No Information Reason For Referral Reason For Referral No Information Plan Of Treatment Date Type Action Status Future Order: Lab Order Urinalys is, Routine ([id number]), Sent on: Sent History Of Present Illness [...] /MAY 29 ya (Dr. Kvng Contreras at [place], [place]). Prior abdominal procedures- cholecystectomy. Feels discomfort [...] mesh sling, anterior colporrhaphy, vulvar biopsyPath: lichen xtmjzziigo08/22/21: (Brissa) 6 weeks post op. No STAN. [...] MUS/APR 10 ya (Dr. Kvng Contreras at [place], [place]). Prior abdominal procedures- cholecystectomy. Feels discomfort [...] mesh sling, anterior colporrhaphy, vulvar biopsyPath: lichen rjmlabluqy42/22/21: (Brissa) 6 weeks post op. No STAN. [...] /MAY 10 ya (Dr. Kvng Contreras at [place], [place]). Prior abdominal procedures- cholecystectomy. Feels discomfort [...] mesh sling, anterior colporrhaphy, vulvar biopsyPath: lichen ioaioazftu06/22/21: (Brissa) 6 weeks post op. No STAN. [...] MUS/MAY 29 ya (Dr. Kvng Contreras at [place], [place]). Prior abdominal procedures- cholecystectomy. Feels discomfort [...] mesh sling, anterior colporrhaphy, vulvar biopsyPath: lichen ifvdnptile05/22/21: (Brissa) 6 weeks post op. No STAN. [...] MUS/APR 10 ya (Dr. Kvng Contreras at [place], [place]). Prior abdominal procedures- cholecystectomy. Feels discomfort [...] MUS/MAY 10 ya (Dr. Kvng Contreras at [place], [place]). Prior abdominal procedures- cholecystectomy. Feels discomfort [...] for years No feeling of incomplete emptying K8Wnuocmy deliveries-3Uterus- NoAbn pap/ abn vag bleeding-0 Sexually active- No, Dyspareunia- NoUsing Estrace 2 times a week at night Prior bladder medications NoPrior UDS- YesPrior pelvic procedures- Hysterectomy several years ago, MUS/APR 10 ya (Dr. Kvng Contreras at [place], [place])Prior abdominal procedures- CholecystectomyFeels discomfort from the sling Voiding Sx:Urgency- YesFrequency- Q3-4hNocturia- [id number]- YesPads per day- Liners d2Wftbjnfj- yes Total fluid intake- Light Constipation- NoFI- No No gross hematuria, dysuria, fevers, chillsUTIs- NoPMH: Asthma Reviewed and discussed prior medical records today- Dr Clemens's notes, plan for [facility] Functional Status Date Functional Assessmen t No Information Instructions Date Instruction Additional Infor mation No Information Assessments Type Assessment Date No Information Patient Care Teams Name Effective Dates (start - stop) Status Members No Information
--- OUTSIDE RECORDS SUMMARY | 2024-12-29 17:11 | XMS_ITS | Encounter Summary ---
Author Organization [facility] Address [address] [place] [address] Phone Care Team Providers Care Painter Decorator Name Role Phone Tashia Barnes MD Primary Care Provider [phone] Encounter Details Date Type Department Care Team (Late st Contact Info) Description 05/17/2022 Documentation Only [facility] [address] [place] [address] Fabien Lockwood MD [address] [place] [address] [place] [address] Social History Tobacco Use Types [...] Office Visit [facility] [address] [place] [address] Fabien Lockwood MD [address] [place] [address] [place] [address] documented as of this encounter Visit Diagnoses Not on filedocumented in this encounter Care Teams Painter Decorator Relationship Specialty Start Date End Date Tashia Barnes MD [address] [facility], [facility] [address] [place] [address] PCP - General 12/24/18 documented as of this encounter
--- OUTSIDE RECORDS SUMMARY | 2024-12-29 17:11 | XMS_ITS | Clinical Summary ---
Author Organization [facility], Address [address] [place] [address] [place] [address] Phone Care Team Providers Care Donations Attendant Name Role Phone Tashia Barnes MD Primary Care Provider [phone] Allergies Active Allergy Reactions Criticality Noted Date [...] each day 90 tablet 3 5 Active sodium bicarbonate 650 MG tablet TAKE 1 TABLET BY MOUTH IN THE MORNING AND 1 IN THE EVENING 180 tablet 5 Active Active Problems Problem Noted Date [...] Refill [facility], [address] [place] [address] Fabien Lockwood MD from Last 3 Months Immunizations Immunization Administration [...] Visit [facility] [facility], [address] [facility] [place] [address] Fabien Lockwood MD [address] [facility] [place] [place] [id number] Health Maintenance Due Date Last Done Comments [...] topic Insurance Medicare Medicaid [place] Care Teams Donations Attendant Relationship Specialty Start Date End Date Tashia Barnes MD [address] [place] [address], [facility] [address] [place] [address] PCP - General 12/24/18
--- OUTSIDE RECORDS SUMMARY | 2024-12-29 17:11 | XMS_ITS | Clinical Summary ---
Author Organization [facility] Address [address] [place] [address] Care Team Providers Care Warp Spooler Name Role Phone Darlyn Barnes MD Primary Care Provider [phone] Allergies Active Allergy Reactions Criticality Noted Date [...] AT BEDTIME,X90 DAYS 3 7 Active PEG 0631-OFc-VvNep-NaCl -NaSulf (PEG-3350/ELECTROLY JANET) 236 g Recon Soln [...] 50+ (1 of 1 - PCV) 2000 RSV Vaccine 50 years and old er and Patients (1 - Risk 50-74 years 1-dose series) 2000 Zoster (Shingles) Vaccine (1 of 2) 2000 DXA Bone Density (Females,Ag es 65 and older) 07/13/2015 Influenza Vaccine 09/19/2024 COVID-19 Vaccine (1 - 2023-2 5 season) 2024 Hepatitis B Vaccines Aged Out No long er eligible based on patient's age to complete this topic Insurance MEDICARE PART A & B Care Teams Warp Spooler Relationship Specialty Start Date End Date Darlyn Barnes MD [address] [place] [address] PCP - General 06/26/16
--- OUTSIDE RECORDS SUMMARY | 2024-12-29 17:11 | XMS_ITS | Encounter Summary ---
Author Organization [facility] Address [address] [place] [address] Phone Care Team Providers Care Vice President Tax Name Role Phone Tashia Barnes MD Primary Care Provider [phone] Reason for Visit * Reason Onset Date Comments Med Refill 07/08/2022 Encounter Details Date Type Department Care Team (Late st Contact Info) Description 07/08/2022 Refill [facility] [address] [place] [address] Fabien Lockwood MD [address] [facility] [place] [address] Social History Tobacco Use Types [...] Office Visit [facility] [address] [place] [address] Fabien Lockwood MD [address] [facility] [place] [address] documented as of this encounter Visit Diagnoses Not on filedocumented in this encounter Care Teams Vice President Tax Relationship Specialty Start Date End Date Tashia Barnes MD [address] [place] [address] PCP - General 12/24/18 documented as of this encounter
--- OUTSIDE RECORDS SUMMARY | 2024-12-29 17:11 | XMS_ITS | Encounter Summary ---
Author Organization [facility] Address [address] [place] [address] Phone Care Team Providers Care Director Of Online Education Name Role Phone Tashia Barnes MD Primary Care Provider [phone] Encounter Details Date Type Department Care Team (Late st Contact Info) Description 06/27/2022 Documentation Only [facility] [address] [place] [address] Fabien Lockwood MD [address] [place] [address] [place] [address] Social History Tobacco Use Types [...] Office Visit [facility] [address] [place] [address] Fabien Lockwood MD [address] [place] [address] [place] [address] documented as of this encounter Visit Diagnoses Not on filedocumented in this encounter Care Teams Director Of Online Education Relationship Specialty Start Date End Date Tashia Barnes MD [address] [facility], [facility] [address] [place] [address] PCP - General 12/24/18 documented as of this encounter
--- OUTSIDE RECORDS SUMMARY | 2024-12-29 17:11 | XMS_ITS | Encounter Summary ---
Author Organization [facility] Address [address] [place] [address] Phone Care Team Providers Care Automation Consultant Name Role Phone Tashia Barnes MD Primary Care Provider [phone] Encounter Details Date Type Department Care Team (Late st Contact Info) Description 03/14/2024 Documentation Only [facility] [address] [facility] [place] [address] [place], [place] [address] [place] [address] Social History Tobacco Use Types [...] Visit [facility] [address] [facility] [place] [address] Fabien Lockwood MD [address] [facility] [place] [address] documented as of this encounter Visit Diagnoses Not on filedocumented in this encounter Care Teams Automation Consultant Relationship Specialty Start Date End Date Tashia Barnes MD [address] [facility], [address] [place] [id number] PCP - General 12/24/18 documented as of this encounter
--- OUTSIDE RECORDS SUMMARY | 2024-12-29 17:11 | XMS_ITS | Encounter Summary ---
Author Organization [facility] Address [address] [place] [address] Phone Care Team Providers Care Sheet Music Salesperson Name Role Phone Tashia Barnes MD Primary Care Provider [phone] Reason for Visit * Reason Onset Date Comments Med Refill 11/03/2022 Encounter Details Date Type Department Care Team (Late st Contact Info) Description 11/03/2022 Refill [facility] [address] [place] [address] Fabien Lockwood MD [address] [facility] [place] [address] Social History Tobacco Use Types [...] Office Visit [facility] [address] [place] [address] Fabien Lockwood MD [address] [facility] [place] [address] documented as of this encounter Visit Diagnoses Not on filedocumented in this encounter Care Teams Sheet Music Salesperson Relationship Specialty Start Date End Date Tashia Barnes MD [address] [place] [address] PCP - General 12/24/18 documented as of this encounter
--- OUTSIDE RECORDS SUMMARY | 2024-12-29 17:11 | XMS_ITS | Encounter Summary ---
Author Organization [facility] Address [address] [place] [address] Phone Care Team Providers Care Rheostat Assembler Name Role Phone Tashia Barnes MD Primary Care Provider [phone] Encounter Details Date Type Department Care Team (Late st Contact Info) Description 06/11/2021 Documentation Only [facility] [address] [place] [address] Trinh Connelly PA Social History Tobacco Use [...] Visit [facility] [address] [place] [address] Fabien Lockwood MD [address] [place] [address] [place] [phone] documented as of this encounter Visit Diagnoses Not on filedocumented in this encounter Care Teams Rheostat Assembler Relationship Specialty Start Date End Date Tashia Barnes MD [address] [place] [address] [place] [address] PCP - General 12/24/18 documented as of this encounter
--- OUTSIDE RECORDS SUMMARY | 2024-12-29 17:11 | XMS_ITS | Encounter Summary ---
Author Organization [facility] Address [address] [place] [address] Care Team Providers Care Account Collector Name Role Phone Darlyn Barnes MD Primary Care Provider [phone] Encounter Details Date Type Department Care Team (Late st Contact Info) Description 06/26/2016 Scanned Document [address] [place] [phone] Provider, Generic Social History Tobacco Use [...] on filedocumented in this encounter Care Teams Account Collector Relationship Specialty Start Date End Date Darlyn Barnes MD [address] [place] [address] PCP - General 06/26/16 documented as of this encounter
[2025-01-08 11:14] VITALS: BMI 41.6
[2025-01-12] VITALS (10 sets, daily range): BP systolic 95–155; BP diastolic 35–83; PULSE 69–92; RESP 12–20; TEMP 36.1–36.6; O2SAT 95–99
[2025-01-12] MEDS: Lactated Ringers 1,000 ML 100 ML IVCONT (13:08)
--- NOTE | 2025-01-12 13:23 | MHC.SHP ---
Pre-Procedural Eval Section A - 24 Hr Update-Section A only Date of Service: 01/12/25 The patient is an INPATIENT: No Changes since office visit: No Cold of Flu in the past 2 weeks, No New Medical Problems, No Changes in Medication and No Patient answered all questions The patient has been examined within 24 hours of the surgical procedure. The History & Physical has been completed within 30 days and I have reviewed it.: Yes Section B - Complete if H&P > 30 days Chief Complaint: Mucopurulent chronic bronchitis Allergies: Allergies Allergy/AdvReac Type Severity Reaction Status Date / Time procaine (From Novocain) Allergy Severe Chest Pain Verified 12/05/24 09:06 cefpodoxime Allergy Unknown Verified 01/08/25 11:03 cetirizine (From Zyrtec) Allergy Unknown Verified 01/08/25 11:03 erythromycin base Allergy Gastrointestinal Verified 01/08/25 11:04 Upset candesartan (From Atacand) AdvReac Severe Rash Verified 12/05/24 09:06 chlorthalidone AdvReac Severe Rash Verified 12/05/24 09:06 cimetidine AdvReac Severe Rash Verified 12/05/24 09:06 cyclobenzaprine (From AdvReac Severe Chest Pain Verified 12/05/24 09:06 Flexeril) fentanyl AdvReac Severe Chest Pain Verified 12/05/24 09:06 ibuprofen (From Motrin) AdvReac Severe Rash Verified 12/05/24 09:06 meperidine (From Demerol) AdvReac Severe Rash Verified 12/05/24 09:06 montelukast (From Singulair) AdvReac Severe Rash Verified 12/05/24 09:06 nitrofurantoin (From AdvReac Severe Rash Verified 12/05/24 09:06 Macrobid) oxycodone AdvReac Severe Chest Pain Verified 12/05/24 09:06 Penicillins AdvReac Severe Rash Verified 12/05/24 09:06 ciprofloxacin (From Cipro) AdvReac Gastrointestinal Verified 01/08/25 11:02 Upset lidocaine AdvReac Anaphylaxis Verified 01/12/25 12:50 sulfa drugs AdvReac Severe Rash Uncoded 04/28/24 14:43 Plan I have reviewed the history and physical and performed a pertinent physical examination on my patient. No changes have occurred unless specified. Time Spent With Patient Time: Total time managing care of this patient today ____ minutes.
--- NOTE | 2025-01-12 14:27 | HO.ANESPROP2 ---
Documented by User: Parul Monique NP 01/07/25 14:36 HPI - Anesthesia Eval Consult details Narrative: 74 yr old female for Bronchoscopy Medias Fiberoptic BMI Sep Paroxysmal atrial fibrillation: noted on ZIO patch 07/2024, on Eliquis; follows [facility] [place], last visit 09/2024, nuc stress test ordered & completed *see below Asthma/COPD: baseline SOB Hypogammaglobulinemia: on SC IgG infusions to reduce frequency of respiratory illness. PIETER: not on CPAP; will repeat sleep study Feb 2025 [facility] Active Problems Active Problems: All Active Problems (Updated 09/04/24 @ 14:45 by Naman Stevens MD) Asthma-COPD overlap syndrome (Acute) Arrhythmia (Acute) Bronchopneumonia (Acute) PIETER (obstructive sleep apnea) (Acute) Pulmonary nodules (Acute) Hiatal hernia (Acute) Hypogammaglobulinemia (Acute) Asthma (Acute) Past Medical History Medical History (Updated 01/08/25 @ 11:01 by Nery Guerrero RN) History of headache Uricosuria Secondary hyperparathyroidism Macrocytic anemia Low vitamin B12 level IFG (impaired fasting glucose) Hypercholesteremia Pancreatitis Interstitial nephritis Hemorrhoids Glaucoma Frequent PVCs Eczema Diverticulosis CVID (common variable immunodeficiency) GERD (gastroesophageal reflux disease) Atrial fibrillation Hyperlipidemia CKD (chronic kidney disease) HTN (hypertension) COVID Severe obesity Asthma-COPD overlap syndrome Arrhythmia PIETER (obstructive sleep apnea) Pulmonary nodules Hiatal hernia Hypogammaglobulinemia Asthma Surgical History Surgical History (Updated 01/08/25 @ 11:01 by Nery Guerrero RN) History of total right knee replacement (~2008) History of esophagogastroduodenoscopy (EGD) H/O colonoscopy Social History Social History Patient Tobacco Use Status: Never used Tobacco Use of substances other than those prescribed or required for medical reasons: No Advance Directives: No Advance Directives Information Provided: Yes Meds Allergies Allergy/AdvReac Type Severity Reaction Status Date / Time procaine (From Novocain) Allergy Severe Chest Pain Verified 12/05/24 09:06 cefpodoxime Allergy Unknown Verified 01/08/25 11:03 cetirizine (From Zyrtec) Allergy Unknown Verified 01/08/25 11:03 erythromycin base Allergy Gastrointestinal Verified 01/08/25 11:04 Upset candesartan (From Atacand) AdvReac Severe Rash Verified 12/05/24 09:06 chlorthalidone AdvReac Severe Rash Verified 12/05/24 09:06 cimetidine AdvReac Severe Rash Verified 12/05/24 09:06 cyclobenzaprine (From AdvReac Severe Chest Pain Verified 12/05/24 09:06 Flexeril) fentanyl AdvReac Severe Chest Pain Verified 12/05/24 09:06 ibuprofen (From Motrin) AdvReac Severe Rash Verified 12/05/24 09:06 meperidine (From Demerol) AdvReac Severe Rash Verified 12/05/24 09:06 montelukast (From Singulair) AdvReac Severe Rash Verified 12/05/24 09:06 nitrofurantoin (From AdvReac Severe Rash Verified 12/05/24 09:06 Macrobid) oxycodone AdvReac Severe Chest Pain Verified 12/05/24 09:06 Penicillins AdvReac Severe Rash Verified 12/05/24 09:06 ciprofloxacin (From Cipro) AdvReac Gastrointestinal Verified 01/08/25 11:02 Upset lidocaine AdvReac Anaphylaxis Verified 01/12/25 12:50 sulfa drugs AdvReac Severe Rash Uncoded 04/28/24 14:43 Home Medications ?Medication ?Instructions ?Recorded ?Confirmed ?Last Taken ?Type albuterol sulfate 90 mcg/actuation 2 puff inhalation Q6H PRN 08/27/23 01/08/25 Unknown History aerosol inhaler Shortness Of Breath Or Wheezing allopurinol 100 mg tablet 100 mg PO DAILY 08/27/23 01/08/25 Unknown History denosumab 60 mg/mL subcutaneous 60 mg subcut [id number] 08/27/23 01/08/25 Unknown History syringe (Prolia) esomeprazole magnesium 20 mg 20 mg PO DAILY 08/27/23 01/08/25 Unknown History capsule,delayed release (Nexium) folic acid 1 mg tablet 1 mg PO DAILY 08/27/23 01/08/25 Unknown History lisinopril 10 mg tablet 10 mg PO DAILY 08/27/23 01/08/25 Unknown History simvastatin 20 mg tablet 40 mg PO BEDTIME 08/27/23 01/08/25 Unknown History sodium bicarbonate 650 mg tablet 650 mg PO BID 08/27/23 01/08/25 Unknown History mecobalamin (vitamin B12) 1,000 1,000 mcg PO Q OTHER DAY 09/04/24 01/08/25 Unknown History mcg chewable tablet apixaban 5 mg tablet (Eliquis) 5 mg PO BID 12/05/24 01/08/25 Unknown History Exam Narrative Narrative: EKG 09/2024 Sinus rhythm with rate 73, PACs, PVCs, no evidence of ischemia ECHO 08/2023 Left atrium is mildly dilated Right ventricle is normal in size and function Left ventricular size is normal Left ventricular wall thickness is normal LV systolic function is normal Left ventricular EF 60-65% There are no regional wall motion abnormalities Grade I mild diastolic dysfunction with impaired LV relaxation, which may be normal for the patient's age. Nuclear Stress Test 10/2024 Myocardial perfusion imaging is normal without any fixed or reversible perfusion defect after Regadenoson stress test LV function is normal with EF 64% at rest and 66% with stress with normal wall motion and thickening. Documented by User: Willow Goodson DO 01/12/25 14:29 PMFSH Past Medical History Medical History (Updated 01/08/25 @ 11:01 by Nery Guerrero RN) History of headache Uricosuria Secondary hyperparathyroidism Macrocytic anemia Low vitamin B12 level IFG (impaired fasting glucose) Hypercholesteremia Pancreatitis Interstitial nephritis Hemorrhoids Glaucoma Frequent PVCs Eczema Diverticulosis CVID (common variable immunodeficiency) GERD (gastroesophageal reflux disease) Atrial fibrillation Hyperlipidemia CKD (chronic kidney disease) HTN (hypertension) COVID Severe obesity Asthma-COPD overlap syndrome Arrhythmia PIETER (obstructive sleep apnea) Pulmonary nodules Hiatal hernia Hypogammaglobulinemia Asthma Family History Family history of problems with anesthesia: No Surgical History Surgical History (Updated 01/08/25 @ 11:01 by Nery Guerrero RN) History of total right knee replacement (~2008) History of esophagogastroduodenoscopy (EGD) H/O colonoscopy History of Problems with Anesthesia: No Social History Social History Patient Tobacco Use Status: Never used Tobacco Use of substances other than those prescribed or required for medical reasons: No Advance Directives: No Advance Directives Information Provided: Yes Meds Allergies Allergy/AdvReac Type Severity Reaction Status Date / Time procaine (From Novocain) Allergy Severe Chest Pain Verified 12/05/24 09:06 cefpodoxime Allergy Unknown Verified 01/08/25 11:03 cetirizine (From Zyrtec) Allergy Unknown Verified 01/08/25 11:03 erythromycin base Allergy Gastrointestinal Verified 01/08/25 11:04 Upset candesartan (From Atacand) AdvReac Severe Rash Verified 12/05/24 09:06 chlorthalidone AdvReac Severe Rash Verified 12/05/24 09:06 cimetidine AdvReac Severe Rash Verified 12/05/24 09:06 cyclobenzaprine (From AdvReac Severe Chest Pain Verified 12/05/24 09:06 Flexeril) fentanyl AdvReac Severe Chest Pain Verified 12/05/24 09:06 ibuprofen (From Motrin) AdvReac Severe Rash Verified 12/05/24 09:06 meperidine (From Demerol) AdvReac Severe Rash Verified 12/05/24 09:06 montelukast (From Singulair) AdvReac Severe Rash Verified 12/05/24 09:06 nitrofurantoin (From AdvReac Severe Rash Verified 12/05/24 09:06 Macrobid) oxycodone AdvReac Severe Chest Pain Verified 12/05/24 09:06 Penicillins AdvReac Severe Rash Verified 12/05/24 09:06 ciprofloxacin (From Cipro) AdvReac Gastrointestinal Verified 01/08/25 11:02 Upset lidocaine AdvReac Anaphylaxis Verified 01/12/25 12:50 sulfa drugs AdvReac Severe Rash Uncoded 04/28/24 14:43 Home Medications ?Medication ?Instructions ?Recorded ?Confirmed ?Last Taken ?Type albuterol sulfate 90 mcg/actuation 2 puff inhalation Q6H PRN 08/27/23 01/08/25 Unknown History aerosol inhaler Shortness Of Breath Or Wheezing allopurinol 100 mg tablet 100 mg PO DAILY 08/27/23 01/08/25 Unknown History denosumab 60 mg/mL subcutaneous 60 mg subcut [id number] 08/27/23 01/08/25 Unknown History syringe (Prolia) esomeprazole magnesium 20 mg 20 mg PO DAILY 08/27/23 01/08/25 Unknown History capsule,delayed release (Nexium) folic acid 1 mg tablet 1 mg PO DAILY 08/27/23 01/08/25 Unknown History lisinopril 10 mg tablet 10 mg PO DAILY 08/27/23 01/08/25 Unknown History simvastatin 20 mg tablet 40 mg PO BEDTIME 08/27/23 01/08/25 Unknown History sodium bicarbonate 650 mg tablet 650 mg PO BID 08/27/23 01/08/25 Unknown History mecobalamin (vitamin B12) 1,000 1,000 mcg PO Q OTHER DAY 09/04/24 01/08/25 Unknown History mcg chewable tablet apixaban 5 mg tablet (Eliquis) 5 mg PO BID 12/05/24 01/08/25 Unknown History Exam Exam Date and Time: 01/12/25 1425 Height,Weight and Vital Signs: Height 5 ft Weight 96.615 kg Vital Signs Temperature 98 F 01/12/25 13:07 Pulse Rate 82 01/12/25 13:07 Respiratory Rate 16 01/12/25 13:07 Blood Pressure 155/59 H 01/12/25 13:07 Pulse Oximetry 97 01/12/25 13:07 Oxygen Delivery Method Room Air 01/12/25 13:07 Temperature 98 F 01/12/25 13:07 Pulse Rate 82 01/12/25 13:07 Respiratory Rate 16 01/12/25 13:07 Blood Pressure 155/59 H 01/12/25 13:07 Pulse Oximetry 97 01/12/25 13:07 Oxygen Delivery Method Room Air 01/12/25 13:07 Airway Mallampati Class: II TM Dist: >3cm Neck ROM: Full Loose/Missing/Broken Teeth: No (patient denies any loose or broken teeth) Heart: S1S2 Lungs: CTAB Assessment and Plan Assessment Anesthesia Assessment: Anesthesia Plan Discussed and Chart Reviewed Final Anesthetic Review Family History of Problems with Anesthesia: No History of Problems with Anesthesia: No NPO: Yes ASA Class: III Final Preanesthetic Review: No Changes in Pt Med Stat, Meds/Allgs Chart Reviewed, Consent Obtained/Reviewed and Anes Risks/Benef Reviewed Patient Risk: Intermediate Procedure Risk: Intermediate Anesthetic Plan Anesthetic Plan: GA and Agree w/ Assess. and Plan Disposition: Standard PACU
--- NOTE | 2025-01-12 15:44 | P.BOP_ITS ---
Brief Operative Note Date of Service: 01/12/25 Pre-op diagnosis: chronic bronchitis Post-op diagnosis: same Procedure: Bronchoscopy with washings and brushings Implants: Surgeon: Naman Stevens MD Anesthesia: GLMA Was an Senior Automation Engineer used for this Procedure?: No Estimated blood loss (mL): 0 Pathology: none sent Condition: stable Disposition: same day
--- NOTE | 2025-01-13 03:12 | OP_ITS ---
DATE OF SERVICE: 01/12/2025 SURGEON: Naman Stevens MD PREOPERATIVE DIAGNOSIS: Chronic bronchitis. POSTOPERATIVE DIAGNOSIS: Chronic bronchitis. PROCEDURE PERFORMED: ESTIMATED BLOOD LOSS: COMPLICATIONS: ANESTHESIA: LMA. ASSISTANTS: None. SPECIMENS: DESCRIPTION OF PROCEDURE: After the patient was adequately sedated and LMA in place, the bronchoscope was inserted via the LMA to the level of the vocal cord. The vocal cords looked symmetrical and had no abnormalities. After instilling lidocaine, the bronchoscope was then passed the vocal cord to the level of the trachea. The tracheal mucosa appeared normal. The patient did have mucoid secretions throughout, moderate in amount. The bronchoscope was then sent further down and evaluated the airways up to the subsegmental airways. No endobronchial lesions or masses noted. Again, moderate degree of mucoid secretions scattered throughout the airways. Using saline, we were able to do a therapeutic cleaning and removal of plugs throughout both lungs. We also introduced a microscopic brush into the left lower lobe and then sent to the appropriate location. The bronchoscope was then removed. The total endoscopic time approximately 12 minutes. Patient tolerated the procedure well. Vital signs were stable, and airways were within normal limits. The mucous plugging was cleared, and the bronchoscope was then removed. No complications noted. MD EVELYN Renee/JEANNETTEL / [phone]
== END 2025-01-12 16:20 | disposition home or self-care (01) ==
PROVIDERS: PCP Internal Medicine; Visit Provider Hospitalist
PROC: 0BJ08ZZ Inspection of Tracheobronchial Tree, Via Natural or Artificial Opening Endoscopic (ICD-10-PCS; CPT 31622; principal; 2025-01-12 14:30)
DX: J41.1 Mucopurulent chronic bronchitis (principal); J44.89 Other specified chronic obstructive pulmonary disease; J45.40 Moderate persistent asthma, uncomplicated; R91.8 Other nonspecific abnormal finding of lung field; D80.1 Nonfamilial hypogammaglobulinemia; I48.91 Unspecified atrial fibrillation; I49.9 Cardiac arrhythmia, unspecified; G47.33 Obstructive sleep apnea (adult) (pediatric); K44.9 Diaphragmatic hernia without obstruction or gangrene; Z79.01 Long term (current) use of anticoagulants; Z79.51 Long term (current) use of inhaled steroids; Z79.899 Other long term (current) drug therapy; Z88.0 Allergy status to penicillin; Z88.1 Allergy status to other antibiotic agents; Z88.2 Allergy status to sulfonamides; Z88.5 Allergy status to narcotic agent; Z88.6 Allergy status to analgesic agent; Z88.8 Allergy status to other drugs, medicaments and biological substances
CPT/HCPCS: 31645; 87070; 87077; 87102; 87116; 87185; 87205; 87206; J0165; J1100; J2003; J2371; J2405; J2704

== ENCOUNTER → 2025-01-12 12:41 | Outpatient (BNV) | payer MEDICARE, MEDICAID, SELFPAY | PROVIDERS: PCP Internal Medicine; Visit Provider Hospitalist | DX: J41.0 Simple chronic bronchitis (principal) | CPT/HCPCS: 31623 ==

== ENCOUNTER 2025-01-29 13:58 | Outpatient (AMB) | payer MEDICARE, MEDICAID, SELFPAY ==
--- OUTSIDE RECORDS SUMMARY | 2022-03-06 03:45 | XMS_ITS | Continuity of Care Document ---
Author Organization [facility] Address [address] [place] [address] Phone Care Team Providers Care Bridge Operator Slip Name Role Phone [place] OD, Amor Unavailable Unavailable Allergies, Adverse Reactions, [...] Diagnoses Date Provider Providers Copied on Encounter [facility] [address] [place], [place], [id number], [place] tel:[phone] [facility] No Information 3 Dawes Amor. [address] [place], [address], [place]. tel:[phone] OFFICE/OUTPA TIENT VISIT, EST [facility] [address], [place], [id number], [place] tel:[phone] [facility] droopy eyelids (chief complaint) Dermatochala sis of right upper eyelidDermat ochalasis of left upper eyelid 2 Raghavendra Hunter. [address] [place], [address], [place]. tel:[phone] Referring Provider: Dale Mabry , [address] [place], [address]. tel:[phone] OFFICE/OUTPA TIENT VISIT, EST [facility] [address], [place], [id number], [place] tel:[phone] [facility] comprehensiv e exam (chief complaint) PresbyopiaAg e-related nuclear cataract, bilateralGla ucoma Suspect bilateralVit reous degeneration , bilateralDer matochalasis of left upper eyelidDermat ochalasis of right upper eyelid Oct-2 2-202 1 Dawes Amor. [address] [place] [address], [address], [place]. tel:[phone] Referring Provider: Amor Drummond, [address] [place] [address], [address]. tel:[phone] [facility] [address], [place], [id number], [place] tel:[phone] [facility] comprehensiv e exam (chief complaint) Glaucoma Suspect bilateralAge -related nuclear cataract, bilateralPre sbyopia Oct-0 9-202 0 Dawes Amor. [address] [place] [address], [address], [place]. tel:[phone] Referring Provider: Amor Drummond, [address] [place] [address], [address]. tel:[phone] [facility] [address], [place], [id number], [place] tel:[phone] [facility] DFE/OCT (chief complaint) Glaucoma Suspect bilateralAge -related nuclear cataract, bilateralBil ateral vitreous detachment of eyesPresbyop iaDermatocha lasis of right upper eyelidDermat ochalasis of left upper eyelid Oct-0 9-201 9 Dawes Amor. [address] [place] [address], [address], [place]. tel:[phone] Referring Provider: Amor Drummond, [address] [place] [address], [address]. tel:[phone] OFFICE/OUTPA TIENT VISIT, EST [facility] [address], [place], [id number], [place] tel:[phone] [facility] VF/HRT/IOP ck (chief complaint) Glaucoma Suspect bilateral Feb-0 6-201 9 Dawes Amor. [address] [place] [address], [address], [place]. tel:[phone] Referring Provider: Amor Drummond, [address] [place] [address], [address]. tel:[phone] OFFICE/OUTPA TIENT VISIT, [facility] [address], [place], [id number], [place] tel:[phone] [facility] Comprehensiv e exam (chief complaint) Glaucoma Suspect bilateralAge -related nuclear cataract, bilateralBil ateral vitreous detachment of eyesPresbyop ia Oct-2 2 8 Dawes Amor. [address] [place] [address], [address], [place]. tel:[phone] Referring Provider: Amor Drummond, [address] [place] [address], [address]. tel:[phone] Family History Family Member Type Diagnosis Age At Onset No Information Immunizations Vaccine Date Status Comments Pneumo (2 yrs or older)(PPV) administered Source: Other Provider Flu (split) (3 yrs or older) administered Source: Other Provider Payers Payer name Insurance type Covered republican ID Authorismael lambert(s) Medicare MB [id number] Social History Type Description Quantity Date Captured Comments Sex Female Smoking Status No Information Chief Complaint And Reason For Visit No Information Reason For Referral Reason For Referral No Information Plan Of Treatment Date Type Action Status Goal Tobacco cessation counseling completed Future Order: Radiology Order Ze iss Cirrus HD-OCT SPT ([id number]), Sent on: Sent Future Order: Radiology Order Ze iss Visual Field Analyzer SPT ([id number]), Sent on: Sent Future Order: Radiology Order Ze iss Cirrus HD-OCT SPT ([id number]), Ordered on: Ordered Future Order: Radiology Order Ze iss Visual Field Analyzer SPT ([id number]), Ordered on: Ordered Future Order: Radiology Order Ze iss Cirrus HD-OCT SPT ([id number]), Sent on: Sent Future Order: Radiology Order Ze iss Visual Field Analyzer SPT ([id number]), Sent on: Sent History Of Present Illness [...] Instruction Additional Infor josef Impression/Plan Related to [place] tochalasis of right upper eyelid Impression/Plan Related to [place] tochalasis of left upper eyelid Impression/Plan Related to Presb yopia Impression/Plan Related to Age-r elated nuclear cataract, bilateral Impression/Plan Related to Glauc sharon Suspect bilateral Impression/Plan Related to Vitre ous degeneration, bilateral Impression/Plan Related to [place] tochalasis of left upper eyelid Impression/Plan Related to [place] tochalasis of left upper eyelid Impression/Plan Related [...] Related to Presb yopia Impression/Plan Related to [place] tochalasis of right upper eyelid Impression/Plan Related to [place] tochalasis of left upper eyelid Impression/Plan Related [...]
--- OUTSIDE RECORDS SUMMARY | 2022-05-22 04:41 | XMS_ITS | Continuity of Care Document ---
Author Organization [facility] Address [address] [place] [address] [place] [address] Phone Care Team Providers Care Molder Labels Name Role Phone Louie VARGAS, Patricia Unavailable Unavailable Allergies, Adverse Reactions, Alerts Substance Reaction Status Criticality MEPIVACAINE HCL Trouble Breathing(severe) Active No Information ibuprofen Trouble Breathing(mild) Active No I nformation NITROFURANTOIN MACROCRYSTALLINE Rash(mild)Rash(mild) A ctive No Information nitrofurantoin Rash(mild)Rash(mild) Active No In formation erythromycin base Rash(mild)Rash(mild) Active No Information PENICILLIN Rash(mild)Rash(mild) Active No Info rmation Sulfa (Sulfonamide Antibiotics) Rash(mild)Rash(mild) A ctive No Information ciprofloxacin Nausea / Vomiting(mild) Active No Information fentanyl Chest pain(moderate) Active No Info rmation OXYCODONE HCL Chest pain(moderate) Active No Inf ormation Medications Medication Instructions Dosage Effective Dates (start - stop) Status Comments clobetasol 0.05 % topical cream apply by topical route 2 times every day a thin layer to the affected area(s) - Active losartan 50 mg tablet take 1 tablet by oral route every day 50 MG - Active B12 Active 1,000 mcg chewable tablet - Active sodium bicarbonate 650 mg tablet - Active Estrace 0.01% (0.1 mg/gram) vaginal cream insert (1G) by vaginal route 3 times every week 1 G - Active allopurinol 100 mg tablet take 1 tablet by oral route every day 100 MG - Active AirDuo Digihaler 113 mcg-14 mcg/actuation breath act,powder sensor inhale 1 puff by inhalation route 2 times every day approximately 12 hours apart at the same times each day - Active folic acid 1 mg tablet take 1 tablet by oral route every day 1 MG - Active VITAMIN D2 (unknown strength) Not Available - Active Lasix 20 mg tablet take 1 tablet by oral route every day 20 MG - Active simvastatin 20 mg tablet take 1 tablet by oral route every day in the evening 20 MG - Active Nexium 20 mg capsule,delayed release take 1 capsule by oral route every day at least 1 hour before a meal swallowing whole. Do not crush or chew granules. 20 MG - Active Procedures Procedure Date Office/Established Level 4 Office/Established Level 4 URINALYSIS AUTO W/O SCOPE URINALYSIS AUTO W/O SCOPE Post-Op Visit (DNB) URINALYSIS AUTO W/O SCOPE Post-Op Visit (DNB) REVISE/REMOVE SLING REPAIR REPAIR BLADDER & VAGINA Bx Vulva, 1 lesion Office/Established Level 4 URINALYSIS AUTO W/O SCOPE Cystouerthroscopy Office/Established Level 4 URINALYSIS AUTO W/O SCOPE Depression screen annual Office/New Level 4 Advance Directives Directive Yes / No Effective Date File Name No Information Encounters Encounter Description Practice Location Reason(s) For Visit Diagnoses Date Provider Providers Copied on Encounter [address] [place], [id number], [place] [phone] [facility] No Information 3 Louie Gomez. [address], [place], [id number] , [place]. tel: [phone] Office/Estab lished Level [address] [place], [id number], [place] tel: [phone] [facility] prolapse (chief complaint) Incomplete uterovaginal prolapseMixed incontinenceHis tory of suburethral sling procedureLichen sclerosusBody mass index (BMI) 40.0-44.9, adult Sep-2 - 2 Jamey Brumfield. [address] [place] [address], [id number] , [place]. tel: [phone] Referring Provider: . No PCP Established , [address] [place] [address], [address]. tel: [phone] [facility] Level [address] [place], [id number], [place] tel: [phone] [facility] prolapse (chief complaint) Urinary tract infection, site not specifiedLichen sclerosusMixed incontinenceHis tory of suburethral sling procedureIncomp lete uterovaginal prolapseBody mass index (BMI) 40.0-44.9, adult Apr- 2 Jamey Brumfield. [address] [place] [address], [id number] , [place]. tel: [phone] Referring Provider: Patricia Palma, Antonietta[address] [place] [address], [id number]. tel: [phone] [address] [place], [id number], [place] tel: [phone] [facility] prolapse (chief complaint) prolapse (chief complaint) Mixed incontinenceUri nary tract infection, site not specifiedHistor y of suburethral sling procedureLichen sclerosusIncomp lete uterovaginal prolapseBody mass index (BMI) 40.0-44.9, adult Dec-3 0-202 1 Jamey Brumfield. [address] [place] [address], [id number] , [place]. tel: [phone] Referring Provider: Antonietta Mcdonald[address] [place] [address], [id number]. tel: [phone] [address] [place], [id number], [place] tel: [phone] [facility] STAN (chief complaint) Incomplete uterovaginal prolapseUrinary tract infection, site not specifiedLichen sclerosusMixed incontinenceHis tory of suburethral sling procedureBody mass index (BMI) 40.0-44.9, adult 1 Jamey Brumfield. [address] [place] [address], [id number] , [place]. tel: [phone] Referring Provider: Patricia Palma, [address] [place] [address], [id number]. tel: [phone] [address] [place], [id number], [place] tel: [phone] [facility] No Information 1 Louie Gomez. [address] [place] [address], [id number] , [place]. tel: [phone] Referring Provider: Patricia Palma [address] [place] [address] [place], [address]. tel: [phone] Office/Estab lished Level [address] [place], [id number], [place] tel: [phone] [facility] Prolapse (URO) (chief complaint) History of suburethral sling procedureIncomp lete uterovaginal prolapseLichen sclerosusMixed incontinenceBod y mass index (BMI) 40.0-44.9, adult 0 1 Louie Gomez. [address] [place] [address], [id number] , [place]. tel: [phone] Referring Provider: Patricia Palma, [address] [place] [address], [id number]. tel: [phone] Office/Estab lished Level [address] [place], [id number], [place] tel: [phone] [facility] Prolapse (URO) (chief complaint) History of suburethral sling procedureIncomp lete uterovaginal prolapseLichen sclerosusMixed incontinenceBod y mass index (BMI) 40.0-44.9, adult May-2 1 Louie Gomez. [address], [place], [id number] , [place]. tel: [phone] Referring Provider: Patricia Palma, [address] [place] [address], [id number]. tel: [phone] Office/[facility] [address] [place], [id number], [place] tel: [phone] [facility] Prolapse (URO) (chief complaint) Incomplete uterovaginal prolapseHistory of suburethral sling procedureLichen sclerosusMixed incontinenceBod y mass index (BMI) 40.0-44.9, adult Apr- 1 Louie Gomez. [address], [place], [id number] , [place]. tel: [phone] Referring Provider: Marium Clemens MD, [address] [place] [address], [address]. tel:[phone] Family History Family Member Type Diagnosis Age At Onset Problem No family history of Cancer, kidney Mother Problem renal stone Problem No family history of Cancer, prostate Problem No family history of Cancer, bladder Payers Payer name Insurance type Covered alliance party ID Authoriza tisamm(s) Medicare - [id number] Social History Type Description Quantity Date Captured Comments Alcohol Use Details Unknown Caffeine Use Details Unknown Tobacco Use Status No Information Smoking Status No Information Sex Female Chief Complaint And Reason For Visit No Information Reason For Referral Reason For Referral No Information Plan Of Treatment Date Type Action Status Future Order: Lab Order Urinalys is, Routine ([id number]), Sent on: Sent History Of Present Illness Encounter Date Complaint History Of Prese nt Illness prolapse 05/11/2020: Both ered by a vaginal bulge for years. No feeling of incomplete emptying. . Vaginal deliveries. Uterus- No. Abn pap/ abn vag bleeding-0. Sexually active- No. Dyspareunia- No. Using Estrace 2 times a week at night. Prior bladder medications No. Prior UDS- Yes. Prior pelvic procedures- Hysterectomy several years ago, /MAY 29 ya (Dr. Kvng Contreras at [place], [place]). Prior abdominal procedures- cholecystectomy. Feels discomfort from the sling. Voiding Sx: Urgency- Yes. Frequency- Q3-4h. Nocturia- x3-4. UUI-Yes. STAN- Yes. Pads per day- Liners x2. Caffeine- yes. Total fluid intake- Light. Constipation- No. FI- No. No gross hematuria, dysuria, fevers, chills. UTIs- No. PMH: Asthma. Exam: White plaques on groin consistent with lichen sclerosus. Evidence of sling exposure. Aa:+1 Ba:+1 C:-2 Ap:-2 Bp: -4 D:n/a gH:3 Pb:3 Tvl: 8. Plan: Schedule OR AC with sling excision and biopsy. Cystoscopy prior. 06/09/2020: No change in bulge symptoms. Not sexually active. Prior op reports reviewed: 08/11/2010- Sacrospinous mesh uphold anterior and posterior colporrhaphy and a trans obturator sling (Monarc). Postop she had retention. - Sling was incised (released 5-7mm). Cystoscopy- Normal without any intraurethral or intravesical mesh. Plan: OR AC with sling excision.11/24/2020: Preop discussion today. No significant change in bulge symptoms. Ongoing discomfort from sling and persistent STAN. Some UUI as well. Not sexually active. On Estrace. Exam: Stage 2 anterior, stage 1 apical, stage 1 posterior prolapse. Mesh palpable in right lateral sulcus with small area of exposure. UA- Trace leuks. Plan: OR AC with sling excision, left vulvar biopsy.12/02/20: OR: excision of mesh sling, anterior colporrhaphy, vulvar biopsyPath: lichen [id number]/22/21: (Brissa) 6 weeks post op. No STAN. No bulge. Having: pressure, dysuria, urgency x 2 days. No fever. Nocturia 4x. On estrace. But hasn't used since the surgery. Exam: atrophy, mid urethral incisions approximated. Plan: start clobetasol BID. Keflex empirically, restart estrace. RTC 1 month.02/17/2021: Significant improvement with clobetasol twice daily. She feels infected again today. UA positive nitrites. 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 Exam: Minor hyperkeratosis noted at left clitoral bridges, much improved. All incisions well-healed. Plan: Continue clobetasol twice daily x4 weeks then switch to 3 times per week. RTC in 3 months.11/10/2021: LS has started to flare again as of 3 weeks ago. Has been using clobetasol BID x 3 weeks with improvement. No urinary complaints. Has been using estrace. Exam: perineal hyperkeratosis, stage 2 anterior prolapse, not bothered. No longer palpate suture/mesh fiber. Plan: refill clobetasol, continue estrace, rtc 6m. prolapse prolapse prolapse 05/11/2020: Both ered by a vaginal bulge for years. No feeling of incomplete emptying. . Vaginal deliveries. Uterus- No. Abn pap/ abn vag bleeding-0. Sexually active- No. Dyspareunia- No. Using Estrace 2 times a week at night. Prior bladder medications No. Prior UDS- Yes. Prior pelvic procedures- Hysterectomy several years ago, MUS/APR 10 ya (Dr. Kvng Contreras at [place], [place]). Prior abdominal procedures- cholecystectomy. Feels discomfort from the sling. Voiding Sx: Urgency- Yes. Frequency- Q3-4h. Nocturia- x3-4. UUI-Yes. STAN- Yes. Pads per day- Liners x2. Caffeine- yes. Total fluid intake- Light. Constipation- No. FI- No. No gross hematuria, dysuria, fevers, chills. UTIs- No. PMH: Asthma. Exam: White plaques on groin consistent with lichen sclerosus. Evidence of sling exposure. Aa:+1 Ba:+1 C:-2 Ap:-2 Bp: -4 D:n/a gH:3 Pb:3 Tvl: 8. Plan: Schedule OR AC with sling excision and biopsy. Cystoscopy prior. 06/09/2020: No change in bulge symptoms. Not sexually active. Prior op reports reviewed: 08/11/2010- Sacrospinous mesh uphold anterior and posterior colporrhaphy and a trans obturator sling (Monarc). Postop she had retention. - Sling was incised (released 5-7mm). Cystoscopy- Normal without any intraurethral or intravesical mesh. Plan: OR AC with sling excision.11/24/2020: Preop discussion today. No significant change in bulge symptoms. Ongoing discomfort from sling and persistent STAN. Some UUI as well. Not sexually active. On Estrace. Exam: Stage 2 anterior, stage 1 apical, stage 1 posterior prolapse. Mesh palpable in right lateral sulcus with small area of exposure. UA- Trace leuks. Plan: OR AC with sling excision, left vulvar biopsy.12/02/20: OR: excision of mesh sling, anterior colporrhaphy, vulvar biopsyPath: lichen [id number]/22/21: (Brissa) 6 weeks post op. No STAN. No bulge. Having: pressure, dysuria, urgency x 2 days. No fever. Nocturia 4x. On estrace. But hasn't used since the surgery. Exam: atrophy, mid urethral incisions approximated. Plan: start clobetasol BID. Keflex empirically, restart estrace. RTC 1 month.02/17/2021: Significant improvement with clobetasol twice daily. She feels infected again today. UA positive nitrites. 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 Exam: Minor hyperkeratosis noted at left clitoral bridges, much improved. All incisions well-healed. Plan: Continue clobetasol twice daily x4 weeks then switch to 3 times per week. RTC in 3 months.05/05/2021: OAB and UUI under good control. Only leaks if she waits too long to void. Had some vaginal spotting 2 weeks ago. Using estrace, needs refill. No STAN. No pain. No sex since surgery. Exam: Small mesh fiber palpated at anterior vaginal wall. She is not sexually active. Incision lines well approximated, healed. No prolapse. Plan: estrace refill, target to anterior vaginal wall, rtc 6m. prolapse prolapse prolapse 05/11/2020: Both ered by a vaginal bulge for years. No feeling of incomplete emptying. . Vaginal deliveries. Uterus- No. Abn pap/ abn vag bleeding-0. Sexually active- No. Dyspareunia- No. Using Estrace 2 times a week at night. Prior bladder medications No. Prior UDS- Yes. Prior pelvic procedures- Hysterectomy several years ago, /MAY 10 ya (Dr. Kvng Contreras at [place], [place]). Prior abdominal procedures- cholecystectomy. Feels discomfort from the sling. Voiding Sx: Urgency- Yes. Frequency- Q3-4h. Nocturia- x3-4. UUI-Yes. STAN- Yes. Pads per day- Liners x2. Caffeine- yes. Total fluid intake- Light. Constipation- No. FI- No. No gross hematuria, dysuria, fevers, chills. UTIs- No. PMH: Asthma. Exam: White plaques on groin consistent with lichen sclerosus. Evidence of sling exposure. Aa:+1 Ba:+1 C:-2 Ap:-2 Bp: -4 D:n/a gH:3 Pb:3 Tvl: 8. Plan: Schedule OR AC with sling excision and biopsy. Cystoscopy prior. 06/09/2020: No change in bulge symptoms. Not sexually active. Prior op reports reviewed: 08/11/2010- Sacrospinous mesh uphold anterior and posterior colporrhaphy and a trans obturator sling (Monarc). Postop she had retention. - Sling was incised (released 5-7mm). Cystoscopy- Normal without any intraurethral or intravesical mesh. Plan: OR AC with sling excision.11/24/2020: Preop discussion today. No significant change in bulge symptoms. Ongoing discomfort from sling and persistent STAN. Some UUI as well. Not sexually active. On Estrace. Exam: Stage 2 anterior, stage 1 apical, stage 1 posterior prolapse. Mesh palpable in right lateral sulcus with small area of exposure. UA- Trace leuks. Plan: OR AC with sling excision, left vulvar biopsy.12/02/20: OR: excision of mesh sling, anterior colporrhaphy, vulvar biopsyPath: lichen [id number]/22/21: (Brissa) 6 weeks post op. No STAN. No bulge. Having: pressure, dysuria, urgency x 2 days. No fever. Nocturia 4x. On estrace. But hasn't used since the surgery. Exam: atrophy, mid urethral incisions approximated. Plan: start clobetasol BID. Keflex empirically, restart estrace. RTC 1 month.02/17/2021: Significant improvement with clobetasol twice daily. She feels infected again today. UA positive nitrites. 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 Exam: Minor hyperkeratosis noted at left clitoral bridges, much improved. All incisions well-healed. Plan: Continue clobetasol twice daily x4 weeks then switch to 3 times per week. RTC in 3 months. prolapse STAN 05/11/2020: Both ered by a vaginal bulge for years. No feeling of incomplete emptying. . Vaginal deliveries. Uterus- No. Abn pap/ abn vag bleeding-0. Sexually active- No. Dyspareunia- No. Using Estrace 2 times a week at night. Prior bladder medications No. Prior UDS- Yes. Prior pelvic procedures- Hysterectomy several years ago, MUS/MAY 29 ya (Dr. Kvng Contreras at [place], [place]). Prior abdominal procedures- cholecystectomy. Feels discomfort from the sling. Voiding Sx: Urgency- Yes. Frequency- Q3-4h. Nocturia- x3-4. UUI-Yes. STAN- Yes. Pads per day- Liners x2. Caffeine- yes. Total fluid intake- Light. Constipation- No. FI- No. No gross hematuria, dysuria, fevers, chills. UTIs- No. PMH: Asthma. Exam: White plaques on groin consistent with lichen sclerosus. Evidence of sling exposure. Aa:+1 Ba:+1 C:-2 Ap:-2 Bp: -4 D:n/a gH:3 Pb:3 Tvl: 8. Plan: Schedule OR AC with sling excision and biopsy. Cystoscopy prior. 06/09/2020: No change in bulge symptoms. Not sexually active. Prior op reports reviewed: 08/11/2010- Sacrospinous mesh uphold anterior and posterior colporrhaphy and a trans obturator sling (Monarc). Postop she had retention. - Sling was incised (released 5-7mm). Cystoscopy- Normal without any intraurethral or intravesical mesh. Plan: OR AC with sling excision.11/24/2020: Preop discussion today. No significant change in bulge symptoms. Ongoing discomfort from sling and persistent STAN. Some UUI as well. Not sexually active. On Estrace. Exam: Stage 2 anterior, stage 1 apical, stage 1 posterior prolapse. Mesh palpable in right lateral sulcus with small area of exposure. UA- Trace leuks. Plan: OR AC with sling excision, left vulvar biopsy.12/02/20: OR: excision of mesh sling, anterior colporrhaphy, vulvar biopsyPath: lichen [id number]/22/21: (Brissa) 6 weeks post op. No STAN. No bulge. Having: pressure, dysuria, urgency x 2 days. No fever. Nocturia 4x. On estrace. But hasn't used since the surgery. Exam: atrophy, mid urethral incisions approximated. Plan: start clobetasol BID. Keflex empirically, restart estrace. RTC 1 month. STAN Prolapse (URO) 70yoF with advan shama stage 2 anterior, stage 1 apical, stage 1 posterior prolapse. 05/11/2020: Bothered by a vaginal bulge for years. No feeling of incomplete emptying. . Vaginal deliveries. Uterus- No. Abn pap/ abn vag bleeding-0. Sexually active- No. Dyspareunia- No. Using Estrace 2 times a week at night. Prior bladder medications No. Prior UDS- Yes. Prior pelvic procedures- Hysterectomy several years ago, MUS/APR 10 ya (Dr. Kvng Contreras at [place], [place]). Prior abdominal procedures- cholecystectomy. Feels discomfort from the sling. Voiding Sx: Urgency- Yes. Frequency- Q3-4h. Nocturia- x3-4. UUI-Yes. STAN- Yes. Pads per day- Liners x2. Caffeine- yes. Total fluid intake- Light. Constipation- No. FI- No. No gross hematuria, dysuria, fevers, chills. UTIs- No. PMH: Asthma. Exam: White plaques on groin consistent with lichen sclerosus. Evidence of sling exposure. Aa:+1 Ba:+1 C:-2 Ap:-2 Bp: -4 D:n/a gH:3 Pb:3 Tvl: 8. Plan: Schedule OR AC with sling excision and biopsy. Cystoscopy prior. 06/09/2020: No change in bulge symptoms. Not sexually active. Prior op reports reviewed: 08/11/2010- Sacrospinous mesh uphold anterior and posterior colporrhaphy and a trans obturator sling (Monarc). Postop she had retention. - Sling was incised (released 5-7mm). Cystoscopy- Normal without any intraurethral or intravesical mesh. Plan: OR AC with sling excision.11/24/2020: Preop discussion today. No significant change in bulge symptoms. Ongoing discomfort from sling and persistent STAN. Some UUI as well. Not sexually active. On Estrace. Exam: Stage 2 anterior, stage 1 apical, stage 1 posterior prolapse. Mesh palpable in right lateral sulcus with small area of exposure. UA- Trace leuks. Plan: OR AC with sling excision, left vulvar biopsy. Prolapse (URO) 69yoF with advan shama stage 2 anterior, stage 1 apical, stage 1 posterior prolapse. 05/11/2020: Bothered by a vaginal bulge for years. No feeling of incomplete emptying. . Vaginal deliveries. Uterus- No. Abn pap/ abn vag bleeding-0. Sexually active- No. Dyspareunia- No. Using Estrace 2 times a week at night. Prior bladder medications No. Prior UDS- Yes. Prior pelvic procedures- Hysterectomy several years ago, MUS/MAY 10 ya (Dr. Kvng Contreras at [place], [place]). Prior abdominal procedures- cholecystectomy. Feels discomfort from the sling. Voiding Sx: Urgency- Yes. Frequency- Q3-4h. Nocturia- x3-4. UUI-Yes. STAN- Yes. Pads per day- Liners x2. Caffeine- yes. Total fluid intake- Light. Constipation- No. FI- No. No gross hematuria, dysuria, fevers, chills. UTIs- No. PMH: Asthma. Exam: White plaques on groin consistent with lichen sclerosus. Evidence of sling exposure. Aa:+1 Ba:+1 C:-2 Ap:-2 Bp: -4 D:n/a gH:3 Pb:3 Tvl: 8. Plan: Schedule OR AC with sling excision and biopsy. Cystoscopy prior. 06/09/2020: No change in bulge symptoms. Not sexually active. Prior op reports reviewed: 08/11/2010- Sacrospinous mesh uphold anterior and posterior colporrhaphy and a trans obturator sling (Monarc). Postop she had retention. - Sling was incised (released 5-7mm). Cystoscopy- Normal without any intraurethral or intravesical mesh. Plan: OR AC with sling excision. Prolapse (URO) 69yoF with vagin al bulge referred by Dr. Marium Clemens for evaluation Bothered by a vaginal bulge for years No feeling of incomplete emptying U1Swxwuhm deliveries-3Uterus- NoAbn pap/ abn vag bleeding-0 Sexually active- No, Dyspareunia- NoUsing Estrace 2 times a week at night Prior bladder medications NoPrior UDS- YesPrior pelvic procedures- Hysterectomy several years ago, MUS/APR 10 ya (Dr. Kvng Contreras at [place], [place])Prior abdominal procedures- CholecystectomyFeels discomfort from the sling Voiding Sx:Urgency- YesFrequency- Q3-4hNocturia- [id number]-SoyVEL- YesPads per day- Liners [id number]- yes Total fluid intake- Light Constipation- NoFI- No No gross hematuria, dysuria, fevers, chillsUTIs- NoPMH: Asthma Reviewed and discussed prior medical records today- Dr Clemens's notes, plan for [facility] Functional Status Date Functional Assessmen t No Information Instructions Date Instruction Additional Infor mation No Information Assessments Type Assessment Date No Information Patient Care Teams Name Effective Dates (start - stop) Status Members No Information
[2025-01-29 14:28] VITALS: BP 148/70; PULSE 66; O2SAT 98; BMI 41.8
--- NOTE | 2025-01-29 14:28 | A.OFFVIS_ITS ---
Vital Signs 01/29/25 14:28 Height 5 ft Weight 213 lb 13.574 oz BMI 41.8 BP 148/70 H Blood Pressure Location Lt brachial Position Sitting Pulse 66 Pulse Source Pulse Oximeter Pulse Oximetry (%) 98 Oxygen Delivery Method Room Air Intake Visit Reasons: S/p bronchoscopy Accompanied by: Self / Same As Patient Allergies procaine (From Novocain) Allergy (Severe, Verified 01/29/25 14:29) Chest Pain cefpodoxime Allergy (Verified 01/29/25 14:29) Unknown cetirizine (From Zyrtec) Allergy (Verified 01/29/25 14:29) Unknown erythromycin base Allergy (Verified 01/29/25 14:29) Gastrointestinal Upset candesartan (From Atacand) Adverse Reaction (Severe, Verified 01/29/25 14:29) Rash chlorthalidone Adverse Reaction (Severe, Verified 01/29/25 14:29) Rash cimetidine Adverse Reaction (Severe, Verified 01/29/25 14:29) Rash cyclobenzaprine (From Flexeril) Adverse Reaction (Severe, Verified 01/29/25 14:29) Chest Pain fentanyl Adverse Reaction (Severe, Verified 01/29/25 14:29) Chest Pain ibuprofen (From Motrin) Adverse Reaction (Severe, Verified 01/29/25 14:29) Rash meperidine (From Demerol) Adverse Reaction (Severe, Verified 01/29/25 14:29) Rash montelukast (From Singulair) Adverse Reaction (Severe, Verified 01/29/25 14:29) Rash nitrofurantoin (From Macrobid) Adverse Reaction (Severe, Verified 01/29/25 14:29) Rash oxycodone Adverse Reaction (Severe, Verified 01/29/25 14:29) Chest Pain Penicillins Adverse Reaction (Severe, Verified 01/29/25 14:29) Rash ciprofloxacin (From Cipro) Adverse Reaction (Verified 01/29/25 14:29) Gastrointestinal Upset lidocaine Adverse Reaction (Verified 01/29/25 14:29) Anaphylaxis sulfa drugs Adverse Reaction (Severe, Uncoded 04/28/24 14:43) Rash HPI Comments Details: The patient is a 74 year woman with known history of allergy and asthma in addition to hypogammaglobulinemia who apparently developed a viral syndrome about 3-4 months ago and started developing worsening cough. The cough is moderate severity not improving. She went through few courses of medications with slow improvement of the cough and now back to her baseline. During the p rocess the patient did have a chest x-ray and subsequently a CT scan of the chest which was done at [facility]. I did personally review the CT scan done early 07/09/2023. The patient did have some areas of airspace disease in the left base which is very suspicious for infectious process. She did have a little bit of bronchiolitis treating budding that area as well that is very typical of a postviral bacterial infection. Patient also had evidence of peribronchial cuffing from bronchitis. And also had multiple pulmonary nodules. The largest nodule measured between 5-6 mm in size and was subsolid nature. She had other solid nodules and other ground-glass nodules. In view of all the changes on her CT scan she should have a CT scan repeated in 6 months from her last 1. Will plan to do it at [facility] as the patient's preference. Will follow up at that time. In the meantime since she her breathing is back to her baseline she continued. She did have her IVIG infuse because of the hypogammaglobulinemia. 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 She did have an allergic reaction some type. She will call the immunology Office for premedications prior to the next dose. The patient will continue to follow closely with immunology. And will follow-up sometime in December after her repeat CT scan. If she has any issues prior to that she will call for an e donaldlier assessment. 01/14/2024 the patient is here for a pulmonary follow-up visit. Overall the patient is doing well. She did have a very eventful few months as she developed a severe allergic reaction after receiving IVIG. This was an infusion. She developed a rash over her body and she was very uncomfortable for those 3 months. Now has subsided completely. She is working closely with their vessel specialist regarding the next step. I believe that they want to try different formulation so therefore she does not have any significant allergic reactions 1 that is provided subcutaneously. Therefore, she will be starting this new therapy soon. I did speak to her regarding premedications. She has discuss that further with her vessel specialist to make sure that she has an adequate premedications to minimize another allergic reaction. The patient also had a CT scan of the chest which I personally reviewed. I also compared to her previous CT scan. Her pulmonary nodules have subsided completely. Likely that this was related to an infectious process specially since some of the nodules were in the tree in bud distribution there was evidence of bronchitis very specific to the left lower lobe and also less so the right lower lobe. With her immunocompromised state this is likely infectious process. At this point the patient does not need any additional imaging studies. If she does become symptomatic she can always call and we can talk about those symptoms and further evaluation at that point. Will follow-up in a year's time to make sure she is doing well and otherwise she will call for any acute issues. 04/28/2024 the patient is here for pulmonary follow-up visit. Overall doing well. Although recently she did have a bout of a respiratory illness. She went to an urgent care initially she was given some prednisone and some cough medication for a viral syndrome. Then 2 weeks later she showed up again with productive cough moderate severity shortness of breath and she was diagnosed with bronchopneumonia. She had an x-ray apparently was abnormal. She was given 2 antibiotics. Now she is feeling back to her baseline. In the meantime she has been getting the subcutaneous IgG infusions with immunology. She is tolerating them well and has been affecting beneficial. The patient will go ahead and have a repeat x-ray to make sure that everything is clear from the pneumonia standpoint. Her lung exam is reassuring. She does continue with her inhaler therapy as prescribed with good results. Will plan to follow-up in a year's time. If her x-ray is abnormal let her know. 09/04/2024 the patient is here for a pulmonary follow-up visit. Since we last spoke she was exposed to a sick contact and started developing worsening respiratory complaints. Initially she was given a short course of prednisone and was not helpful. Then she followed up with her primary care doctor and was diagnosed with pneumonia based on a chest x-ray. I do not have that x-ray. She was having significant chest congestion cough and shortness of breath. She was given some antibiotics and now she is starting to feel better. She is not completely improve. She has been using the Advair generic with partial improvement. Will go ahead and request Incruse to maximize her respiratory therapy. The patient also needs a nebulizer will provide her 1 in the office. She does have a history of cardiac arrhythmias so will just give her Xopenex to minimize cardiac irritability. The patient will return in 3-4 months with PFTs to assess her progress. In the meantime if she develops any worsening symptoms she can always call for further recommendations. 12/05/2024 the patient is here for pulmonary follow-up visit. The patient overall has been doing well although recently she started developing a cold. Typically called lead to asthma exacerbations and she usually needs prednisone. I will send some to the pharmacy at this time but she does not need to take it at this time particularly. Only she worsens. She continues use the Wixela and also the Incruse with good effect. She did undergo pulmonary function studies fairly recently we did review them. No evidence of any obstructive nor restrictive ventilatory defects. Overall good lung mechanics which is reassuring. The patient did get diagnosed with atrial fibrillation and she was placed on Eliquis. She is not working with her sleep. She does have underlying sleep apnea needs to get situated with PAP therapy. She is going to follow-up with the sleep clinic sometime in February for now she can practice positional therapy. She is going to her vaccines. The only vaccines that she needs to see her RSV, RSV. She is going to follow-up with [facility] to see she can get it through her insurance. She will follow-up in a year's time if any issues arise she can always call for an earlier assessment. 01/29/2025 the patient is here for a follow-up bronchoscopy. Overall she is doing good. It be larynx in the trachea appeared normal. Her airways did demonstrate some mucus and some bronchitis. Her cultures were positive for Haemophilus influenzae. The patient was treated with doxycycline. More rece ntly she started developing a cold after sick contact. The patient has been on subQ IgG therapy. Will go ahead and start her on azithromycin 3 times a week for prophylactic as well specially since she is getting more recurrent infections. We did review her last CT scan of the chest from 2023 demonstrating no acute disease. In addition to that we also reviewed her pulmonary function studies. Will make sure that her paying teller gets all the results. The patient will follow-up in around 4-6 months if any issues arise she will call. She will take the azithromycin for 2-3 months and she will get an EKG in between. [facility] Medical History (Updated 01/08/25 @ 11:01 by Nery Guerrero RN) History of headache Uricosuria Secondary hyperparathyroidism Macrocytic anemia Low vitamin B12 level IFG (impaired fasting glucose) Hypercholesteremia Pancreatitis Interstitial nephritis Hemorrhoids Glaucoma Frequent PVCs Eczema Diverticulosis CVID (common variable immunodeficiency) GERD (gastroesophageal reflux disease) Atrial fibrillation Hyperlipidemia CKD (chronic kidney disease) HTN (hypertension) COVID Severe obesity Asthma-COPD overlap syndrome Arrhythmia PIETER (obstructive sleep apnea) Pulmonary nodules Hiatal hernia Hypogammaglobulinemia Asthma Surgical History (Updated 01/08/25 @ 11:01 by Nery Guerrero RN) History of total right knee replacement (~2008) History of esophagogastroduodenoscopy (EGD) H/O colonoscopy Social History Patient Tobacco Use Status: Never used Tobacco Review of Systems Const Denies fever(s) ENT Reports nasal congestion and Reports nasal discharge Card Denies chest pain Resp Reports cough and Reports wheezing GI Reports dyspepsia and Reports heartburn Musc Reports no additional complaints Skin/Breast Denies rash Endo Reports no additional complaints Zane/Lymph Reports no additional complaints Aller/Immun Reports wheezing Physical Exam Vital Signs: Last Vital Signs Pulse 66 01/29/25 14:28 BP 148/70 H 01/29/25 14:28 Pulse Ox 98 01/29/25 14:28 Oxygen Delivery Method Room Air 01/29/25 14:28 BMI result Body Mass Index 41.8 Const General: comfortable HEENT Head: Yes normocephalic Neck Neck: Yes supple Chest Chest palpation & inspection: normal inspection of the chest Resp Effort & Inspection: normal respiratory effort Auscultation: diminished lung sounds Cardio Rhythm: abnormal rhythm Heart sounds: S1 normal heart sound present and S2 normal heart sound present GI Palpation (GI): Soft to palpation Skin General skin exam: no rashes or lesions noted Extrem General: Yes no clubbing, cyanosis or edema Assessment & Plan Assessment & Plan (1) Asthma: Code(s): J45.909 - Unspecified asthma, uncomplicated Category: Medical Qualifiers: Asthma complication type: uncomplicated Asthma persistence: persistent Asthma severity: moderate Qualified Code(s): J45.40 - Moderate persistent asthma, uncomplicated (2) Hypogammaglobulinemia: Code(s): D80.1 - Nonfamilial hypogammaglobulinemia Category: Medical (3) Hiatal hernia: Code(s): K44.9 - Diaphragmatic hernia without obstruction or gangrene Category: Medical (4) Pulmonary nodules: Code(s): R91.8 - Other nonspecific abnormal finding of lung field Category: Medical (5) PIETER (obstructive sleep apnea): Code(s): G47.33 - Obstructive sleep apnea (adult) (pediatric) Category: Medical (6) Arrhythmia: Code(s): I49.9 - Cardiac arrhythmia, unspecified Category: Medical Qualifiers: Arrhythmia type: unspecified cardiac arrhythmia Qualified Code(s): I49.9 - Cardiac arrhythmia, unspecified (7) Asthma-COPD overlap syndrome: Code(s): J44.89 - Other specified chronic obstructive pulmonary disease Category: Medical Plan continue Advair generic 500/50 continue incruse JESSY as needed SC IgG therapy, premedicate with tylenol/zyrtec stop Doxy start Azithromycin MWF needs nebulizer with xopenex reflux diet f/u 4-6 minths Orders: Orders ECG 12 lead EKG Today J44.9 - Chronic obstructive pulmonary disease, unspecified Medications: New azithromycin Take 1 tablet on Sunday/Sunday/Sunday 250 mg PO 3XW 12 tabs 2RF 28 days K21.9 - Gastro-esophageal reflux disease without esophagitis Coding Level of Care Code Add On Preventative Visit Only Diagnoses Moderate persistent asthma without complication J45.40 Asthma complication type: uncomplicated Asthma persistence: persistent Asthma severity: moderate Hypogammaglobulinemia D80.1 Hiatal hernia K44.9 Pulmonary nodules R91.8 PIETER (obstructive sleep apnea) G47.33 Cardiac arrhythmia, unspecified cardiac arrhythmia type I49.9 Arrhythmia type: unspecified cardiac arrhythmia Asthma-COPD overlap syndrome J44.89 Time Spent (min) 17
--- OUTSIDE RECORDS SUMMARY | 2025-01-29 21:24 | XMS_ITS | Encounter Summary ---
Author Organization [facility] Address [address] [place] [address] Care Team Providers Care Senior Analyst Programmer Name Role Phone Darlyn Barnes MD Primary Care Provider [phone] Encounter Details Date Type Department Care Team (Late st Contact Info) Description 06/26/2016 Scanned Document [address] [place] [id number] Provider, Generic Social History Tobacco Use [...] on filedocumented in this encounter Care Teams Senior Analyst Programmer Relationship Specialty Start Date End Date Darlyn Barnes MD [address] [place] [address] PCP - General 06/26/16 documented as of this encounter
--- OUTSIDE RECORDS SUMMARY | 2025-01-29 21:24 | XMS_ITS | Clinical Summary ---
Author Organization [facility] Address [address] [place] [address] Care Team Providers Care College Athlete Name Role Phone Darlyn Barnes MD Primary Care Provider [phone] Allergies Active Allergy Reactions Criticality Noted Date [...] AT BEDTIME,X90 DAYS 3 7 Active PEG [id number] -NaSulf (PEG-3350/ELECTROLY JANET) 236 g Recon Soln [...] MEDICARE PART A & B Care Teams College Athlete Relationship Specialty Start Date End Date Darlyn Barnes MD [address] [place] [address] PCP - General 06/26/16
--- OUTSIDE RECORDS SUMMARY | 2025-01-29 21:24 | XMS_ITS | Clinical Summary ---
Author Organization [facility] Address [address] [place] [address] Phone Care Team Providers Care Cover Stripper Name Role Phone Darlyn Barnes MD Primary Care Provider [phone] Surgical History Surgery Date Site/Laterality Comments STEREOTACTIC [...] for breast cancer from Last 3 Months or Most Recently Relevant to Health Maintenance Results * MG Mammo Digital Screening w [...] year. Mamm[facility] location: [facility] at [address], [address] -------- FINAL REPORT -------- Dictated By: Ayaz Steele Dictated Date: 10/13/2024 09:35 ET Assigned Physician: Ayaz Steele Reviewed and Electronically Signed By: Ayaz Steele Signed Date: 10/13/2024 17:23 ET Workstation ID: [id number] Transcribed By: Self Edit Transcribed Date: 10/13/2024 09:36 ET Narrative 10/13/2024 5:23 PM EDT EXAM: SCREENING MAMMOGRAPHY, BILATERAL HISTORY: SCREENING. Excision left breast. COMPARISON: 10/11/23, 08/26/22, 08/23/21, 12/14/20, 04/30/20, 04/15/20 TECHNIQUE: Synthesized CC and MLO projections of each breast. Tomosynthesis of each breast in the CC and MLO projections. ADDITIONAL IMAGING: None Computer-aided detection was employed with the iCAD ProFound AI 3-D. TISSUE DENSITY: There are scattered [...] Computer-aided detection was employed with the iCAD ProFound AI 3-D. TISSUE DENSITY: There are scattered [...] year. Mammography location: [facility] at [address], [address] -------- FINAL REPORT -------- Dictated By: Ayaz Steele Dictated Date: 10/13/2024 09:35 ET Assigned Physician: Ayaz Steele Reviewed and Electronically Signed By: Ayaz Steele Signed Date: 10/13/2024 17:23 ET Workstation ID: [id number] Transcribed By: Self Edit Transcribed Date: 10/13/2024 09:36 ET us Self Referral Sppl IMG BI PROCEDURES Final Resul t from Last 3 Months or Most Recently Relevant to Health Maintenance Insurance MEDICARE MEDICA[place] - [place] Care Teams Cover Stripper Relationship Specialty Start Date End Date Darlyn Barnes MD [address] [place] [address] PCP - General Internal Medicine 07/23/24
== END 2025-01-29 14:53 | disposition home or self-care (01) ==
LOC: HO.HPS 13:58
PROVIDERS: PCP Internal Medicine; Visit Provider Hospitalist
DX: J45.40 Moderate persistent asthma, uncomplicated (principal); D80.1 Nonfamilial hypogammaglobulinemia; K44.9 Diaphragmatic hernia without obstruction or gangrene; R91.8 Other nonspecific abnormal finding of lung field; G47.33 Obstructive sleep apnea (adult) (pediatric); I49.9 Cardiac arrhythmia, unspecified; J44.89 Other specified chronic obstructive pulmonary disease
CPT/HCPCS: 99214; G2211

== ENCOUNTER → 2025-01-29 13:58 | Outpatient (BNVA) | payer MEDICARE, MEDICAID, SELFPAY | PROVIDERS: PCP Internal Medicine; Visit Provider Hospitalist | DX: J45.40 Moderate persistent asthma, uncomplicated (principal); D80.1 Nonfamilial hypogammaglobulinemia; K44.9 Diaphragmatic hernia without obstruction or gangrene; R91.8 Other nonspecific abnormal finding of lung field; I49.9 Cardiac arrhythmia, unspecified; G47.33 Obstructive sleep apnea (adult) (pediatric); J44.89 Other specified chronic obstructive pulmonary disease | CPT/HCPCS: 99212 ==